=== PATIENT | female | born 1950 | race Caucasian/White ===

== ENCOUNTER 2023-07-31 15:04 | Outpatient (CLI) | payer MEDICARE, SELFPAY ==
--- NOTE | 2023-07-31 15:15 | XR_ITS ---
FINAL REPORT CLINICAL HISTORY: bilateral foot pain, pain in all toes FINDINGS: Right foot Three views were obtained. There is no acute fracture or dislocation. There are moderate degenerative changes. Calcaneal spurs are noted. There is varus angulation of the metatarsals. No soft tissue abnormality is identified. IMPRESSION: Degenerative changes. Reviewed, Interpreted and Dictated by Jeff Clemens III, MD Transcribed by Traci Franco Authenticated and [facility]
--- NOTE | 2023-07-31 15:15 | XR_ITS ---
FINAL REPORT CLINICAL HISTORY: bilateral foot pain, pain in all toes FINDINGS: Left foot Three views were obtained. There is no acute fracture or dislocation. There is severe hallux valgus deformity. Moderate and severe degenerative changes are present. There is medial subluxation of the 3rd and 4th digits at the metatarsophalangeal joints. Note is made of calcaneal spurs. There is calcification in the region of the plantar aponeurosis. IMPRESSION: Degenerative and chronic appearing findings as above. Reviewed, Interpreted and Dictated by Jeff Clemens III, MD Transcribed by Traci Franco Authenticated and [facility]
== END 2023-07-31 23:59 | disposition home or self-care (01) ==
LOC: RAD 15:06
PROVIDERS: PCP Family Medicine; Visit Provider Podiatrist
DX: M19.071 Primary osteoarthritis, right ankle and foot; M19.072 Primary osteoarthritis, left ankle and foot; M20.41 Other hammer toe(s) (acquired), right foot; M20.42 Other hammer toe(s) (acquired), left foot; M79.672 Pain in left foot; M79.671 Pain in right foot
CPT/HCPCS: 73630

== ENCOUNTER 2024-01-16 16:21 | Outpatient (CLI) | payer MEDICARE, SELFPAY ==
--- NOTE | 2024-01-16 16:26 | XR_ITS ---
PROCEDURE INFORMATION: Exam: XR Left Ankle Exam date and time: 01/16/2024 4:27 PM Age: 73 years old Clinical indication: Pain; Ankle; Left; Additional info: Ankle pain TECHNIQUE: Imaging protocol: Radiologic exam of the left ankle. Views: 3 or more views. COMPARISON: CR XR FOOT WT BEARING LT 3V 01/16/2024 4:27 PM FINDINGS: Bones/joints: Old avulsion fracture off the medial malleolus. Degenerative changes in the medial and lateral malleolus. There is no evidence of acute fracture.There is no evidence of malalignment or dislocation. Bi malleolar soft tissue swelling Soft tissues: See Bones/joints finding. IMPRESSION: There is no evidence of acute fracture.There is no evidence of malalignment or dislocation.
--- NOTE | 2024-01-16 16:26 | XR_ITS ---
PROCEDURE INFORMATION: Exam: XR Left Foot Exam date and time: 01/16/2024 4:27 PM Age: 73 years old Clinical indication: Pain; Foot; Left; Additional info: Foot pain TECHNIQUE: Imaging protocol: Radiologic exam of the left foot. Views: 3 or more views. COMPARISON: CR XR FOOT WT BEARING LT 3V 07/31/2023 3:25 PM FINDINGS: Bones/joints: Significant hallux valgus deformity of the great toe. Degenerative changes in the tarsometatarsal joints especially the 1st tarsometatarsal joint. Degenerative changes in the 1st metatarsophalangeal joint and IP joint and tarsal bones . There is no evidence of acute fracture.There is no evidence of malalignment or dislocation. Soft tissues: Normal. IMPRESSION: 1. Significant hallux valgus deformity of the great toe. 2. Degenerative changes in the tarsometatarsal joints especially the 1st tarsometatarsal joint. Degenerative changes in the 1st metatarsophalangeal joint and IP joint and tarsal bones . 3. There is no evidence of acute fracture.There is no evidence of malalignment or dislocation.
== END 2024-01-16 23:59 | disposition home or self-care (01) ==
LOC: RAD 16:22
PROVIDERS: PCP Family Medicine; Visit Provider Podiatrist
DX: M79.672 Pain in left foot (principal); M25.572 Pain in left ankle and joints of left foot
CPT/HCPCS: 73610; 73630

== ENCOUNTER 2024-09-27 21:25 | Inpatient (IN) | payer MEDICARE, SELFPAY ==
--- NOTE | 2024-09-27 21:29 | XR_ITS ---
PROCEDURE INFORMATION: Exam: XR Chest Exam date and time: 09/27/2024 9:47 PM Age: 73 years old Clinical indication: Other: AMS TECHNIQUE: Imaging protocol: Radiologic exam of the chest. Views: 1 view. COMPARISON: CT ANGIO NECK 09/27/2024 9:43 PM FINDINGS: Lungs: Unremarkable. No consolidation. Pleural spaces: Unremarkable. No pleural effusion. No pneumothorax. Heart/Mediastinum: Unremarkable. No cardiomegaly. Bones/joints: Unremarkable. IMPRESSION: No acute findings.
--- NOTE | 2024-09-27 21:30 | CT_ITS ---
PROCEDURE INFORMATION: Exam: CTA Neck With Contrast Exam date and time: 09/27/2024 9:43 PM Age: 73 years old Clinical indication: Stroke-like symptoms; Other: Found on ground, AMS; Additional info: Possible stroke TECHNIQUE: Imaging protocol: Computed tomographic angiography of the neck with contrast. Exam focused on the cervical segments of the vasculature. 3D rendering (Not supervised by radiologist): MIP and/or 3D reconstructed images were created by the technologist. Radiation optimization: All CT scans at this facility use at least one of these dose optimization techniques: automated exposure control; mA and/or kV adjustment per patient size (includes targeted exams where dose is matched to clinical indication); or iterative reconstruction. Contrast material: ISOVUE 370; Contrast volume: 80 ml; Contrast route: INTRAVENOUS (IV); COMPARISON: CT ANGIO HEAD 09/27/2024 9:43 PM FINDINGS: Right common carotid artery: No stenosis. No dissection or occlusion. Right internal carotid artery: No stenosis of the extracranial segment. No dissection or occlusion. Right external carotid artery: No occlusion or stenosis of the origin. Left common carotid artery: No stenosis. No dissection or occlusion. Left internal carotid artery: No stenosis of the extracranial segment. No dissection or occlusion. Left external carotid artery: No occlusion or stenosis of the origin. Right vertebral artery: No stenosis. No dissection or occlusion. Left vertebral artery: No stenosis. No dissection or occlusion. Soft tissues: Normal. No significant soft tissue swelling. Bones/joints: No acute fracture. IMPRESSION: No stenosis or occlusion. REFERENCES: NASCET CRITERIA. The degree of stenosis in the cervical segment of the internal carotid artery is based on NASCET criteria. Normal is no stenosis. Mild is less than 50% stenosis. Moderate is 50-69% stenosis. Severe is 70% to 99% stenosis. Total occlusion is no detectable patent lumen.
--- NOTE | 2024-09-27 21:30 | CT_ITS ---
PROCEDURE INFORMATION: Exam: CT Head Without Contrast Exam date and time: 09/27/2024 9:43 PM Age: 73 years old Clinical indication: Stroke-like symptoms; Other: Found on ground, AMS; Additional info: Possible stroke TECHNIQUE: Imaging protocol: Computed tomography of the head without contrast. Radiation optimization: All CT scans at this facility use at least one of these dose optimization techniques: automated exposure control; mA and/or kV adjustment per patient size (includes targeted exams where dose is matched to clinical indication); or iterative reconstruction. Other technique: STROKE PROTOCOL was implemented. COMPARISON: CT ANGIO HEAD 09/27/2024 9:43 PM FINDINGS: Brain: Normal. No hemorrhage. Unremarkable white matter. No mass effect. Cerebral ventricles: No ventriculomegaly. Paranasal sinuses: Visualized sinuses are unremarkable. No fluid levels. Mastoid air cells: Visualized mastoid air cells are well aerated. Bones: Unremarkable. No acute fracture. Soft tissues: Unremarkable. IMPRESSION: No acute intracranial abnormality. ASSESSMENT: ASPECTS ([place] Stroke Program Early CT Score) is 10
--- NOTE | 2024-09-27 21:30 | CT_ITS ---
PROCEDURE INFORMATION: Exam: CTA Head With Contrast, Arteriography Exam date and time: 09/27/2024 9:43 PM Age: 73 years old Clinical indication: Stroke-like symptoms; Other: Found on ground, AMS; Additional info: Possible stroke TECHNIQUE: Imaging protocol: Computed tomographic angiography of the head with contrast. Exam focused on the arteries. 3D rendering (Not supervised by radiologist): MIP and/or 3D reconstructed images were created by the technologist. Radiation optimization: All CT scans at this facility use at least one of these dose optimization techniques: automated exposure control; mA and/or kV adjustment per patient size (includes targeted exams where dose is matched to clinical indication); or iterative reconstruction. Contrast material: ISOVUE 370; Contrast volume: 80 ml; Contrast route: INTRAVENOUS (IV); COMPARISON: CT HEAD/BRAIN WO CON 09/27/2024 9:43 PM FINDINGS: ANTERIOR CIRCULATION: Right internal carotid artery: Intracranial segment is patent with no significant stenosis. No aneurysm. Right middle cerebral artery: No occlusion or significant stenosis. No aneurysm. Right anterior cerebral artery: No occlusion or significant stenosis. No aneurysm. Left internal carotid artery: Intracranial segment is patent with no significant stenosis. No aneurysm. Left middle cerebral artery: No occlusion or significant stenosis. No aneurysm. Left anterior cerebral artery: No occlusion or significant stenosis. No aneurysm. POSTERIOR CIRCULATION: Right vertebral artery: No occlusion or significant stenosis. No aneurysm. Left vertebral artery: No occlusion or significant stenosis. No aneurysm. Basilar artery: No occlusion or significant stenosis. No aneurysm. Right posterior cerebral artery: No occlusion or significant stenosis. No aneurysm. Left posterior cerebral artery: No occlusion or significant stenosis. No aneurysm. Brain: No definite mass, mass effect, or midline shift. Cerebral ventricles: No ventriculomegaly. Bones/joints: Unremarkable. No acute fracture. Soft tissues: Unremarkable. IMPRESSION: No large vessel stenosis or occlusion.
--- NOTE | 2024-09-27 21:32 | HMH.EDGENADL ---
Discharge Plan Disposition Patient Disposition: Admitted Clinical Impressions Clinical Impression: Declining functional status Discharge ED Provider: Porfirio No General Adult HPI <Roselyn Keating APRN - Last Filed: 09/27/24 21:37> General Chief complaint: Altered Mental Status Stated complaint: found down Time Seen by Provider: 09/27/24 21:29 History of Present Illness HPI narrative: patient is a 73-year-old female PMHx obesity, dementia brought in to ED via EMS for being found down and altered. EMS reported that family advised patient has dementia at baseline but is very altered right now. Related Data Home Medications ?Medication ?Instructions ?Recorded ?Confirmed ascorbic acid (vitamin C) 500 mg 500 mg PO DAILY 05/25/22 09/28/24 tablet,extended release cholecalciferol (vitamin D3) 125 125 mcg PO DAILY 05/25/22 09/28/24 mcg (5,000 unit) capsule simvastatin 20 mg tablet 20 mg PO DAILY 05/25/22 09/28/24 donepezil 5 mg tablet 5 mg PO HS 07/31/23 09/28/24 escitalopram oxalate 20 mg tablet 20 mg PO HS 07/31/23 09/28/24 memantine 10 mg tablet 10 mg PO BID 07/31/23 09/28/24 pantoprazole 40 mg tablet,delayed 40 mg PO BID 10/17/23 09/28/24 release bupropion HCl 150 mg 24 hr tablet, 150 mg PO DAILY 09/28/24 09/28/24 extended release losartan 50 mg tablet (Cozaar) 50 mg PO HS 09/28/24 09/28/24 Allergies Allergy/AdvReac Type Severity Reaction Status Date / Time morphine (MORPHINE) Allergy Unknown HIVES/FEVER Verified 01/16/24 15:14 Penicillins (PENICILLINS) Allergy Unknown I-RASH Verified 01/16/24 15:14 Sulfa (Sulfonamide Allergy Unknown I-RASH Verified 01/16/24 15:14 Antibiotics) (SULFA (SULFONAMIDE ANTIBIOTICS)) [facility] <Roselyn Keating APRN - Last Filed: 09/27/24 21:37> [facility] Disclaimer: The information contained in this section may have been updated after the patient was seen, as this information can be updated by other users. Medical History (Updated 09/28/24 @ 01:06 by Dana Lowery RN) Dementia Osteoarthritis History of gastroesophageal reflux (GERD) History of cataract History of anemia Prolapsed bladder Surgical History (Updated 09/28/24 @ 01:06 by Dana Lowery RN) H/O: hysterectomy History of cholecystectomy History of left knee replacement History of right hip replacement Hx of tonsillectomy Family History Mother Cancer Father Cancer Social History (Updated 09/28/24 @ 01:06 by Dana Lowery RN) Smoking Status: Never smoker alcohol intake: never current occupational status: retired Travel in the last 8 weeks?: None Have you lived/traveled outside [place] in past 30 days?: No Contact w/someone who lives/traveled outside US past 30 days?: No Exposure to someone with infectious disease in past 14 days?: No Do you have a fever (greater than 100.4 F or 38 C)?: No Have you tested positive for COVID-19?: No Exposed to someone with COVID-19 in past 14 days?: No Do you have a sore throat?: No Do you have a cough?: No Do you have any weakness?: No Are you experiencing any nausea/vomitting?: No Do you have any diarrhea?: No Are you experiencing any unusual bleeding?: No Do you have any muscle aches/pain?: No Do you have any abdominal pain?: No Are you experiencing loss of taste or smell?: No Other Medical History Have you received the Pneumonia Vaccine: No <Roselyn Keating APRN - Last Filed: 09/27/24 21:37> ROS Obtained: Yes Systems reviewed as appropriate & no additional complaints except as documented Physical Exam <Roselyn Keating APRN - Last Filed: 09/27/24 21:37> General General appearance: alert Head Head exam: atraumatic Eye Eye exam: Present PERRL Neck Neck exam: Present full ROM Chest Chest inspection: Present normal inspection Respiratory Respiratory exam: Present normal lung sounds bilaterally Cardiovascular Cardiovascular exam: Present tachycardia Abdominal Exam Abdominal exam: Present soft; Absent tenderness Extremities Exam Extremities exam: Present other (Chronic deformity of feet) Neurological Exam Neurological exam: Present alert; Absent oriented X3 Skin Skin exam: Present warm and dry Medical Decision Making <Roselyn Keating APRN - Last Filed: 09/27/24 21:37> Medical Records Screening: Per USPSTF and CDC recommendations, given the prevalence of disease in our region, it is our hospital?s policy to screen for HIV and viral Hepatitis for all patients aged 18 and over and those with ongoing risk factors. Scottie Inquiry Pt receiving controlled substance: No Vital Signs: 09/27/24 21:37 09/27/24 22:31 09/27/24 23:01 Temperature 99.9 F H Temperature Source Oral Pulse Rate 93 H 89 Pulse Rate [Right Radial] 109 H Respiratory Rate 18 14 12 Blood Pressure 123/67 117/63 Blood Pressure [Right Arm] 111/84 Blood Pressure Mean [Right Arm] 93 Blood Pressure Source Blood Pressure Position Blood Pressure Position [Right Arm] Supine 02 Sat by Pulse Oximetry 98 96 97 Oxygen Delivery Method Room Air 09/27/24 23:31 09/28/24 00:01 09/28/24 00:15 Temperature Temperature Source Pulse Rate 88 91 H Pulse Rate [Right Radial] Respiratory Rate 13 13 Blood Pressure 109/59 L 121/67 Blood Pressure [Right Arm] Blood Pressure Mean [Right Arm] Blood Pressure Source Blood Pressure Position Blood Pressure Position [Right Arm] 02 Sat by Pulse Oximetry 96 96 Oxygen Delivery Method Room Air 09/28/24 00:31 09/28/24 00:38 Temperature 99.9 F H Temperature Source Oral Pulse Rate 76 85 Pulse Rate [Right Radial] Respiratory Rate 13 14 Blood Pressure 104/58 L 104/58 L Blood Pressure [Right Arm] Blood Pressure Mean [Right Arm] Blood Pressure Source Automatic Cuff Blood Pressure Position Sitting Blood Pressure Position [Right Arm] 02 Sat by Pulse Oximetry 95 Oxygen Delivery Method Room Air Lab Data Lab Results 09/27/24 21:20: VBG pH 7.38, VBG pCO2 37.0, VBG pO2 42.3 H, VBG HCO3 21.2 L, VBG Total CO2 22.4 L, VBG O2 Saturation 75.8 H, VBG Base Excess -3.9 L, VBG Lactic Acid 1.6, Sodium 141, Potassium 4.1, Chloride 104, Carbon Dioxide 24, Anion Gap 17.1 H, BUN 27 H, Creatinine 1.00, Estimated Creat Clear 43, Estimated GFR 54 L, Est GFR ( Amer) 66, Glucose 127 H, Calcium 9.4, Total Bilirubin 1.1, AST 48 H, ALT 21, Alkaline Phosphatase 76, Troponin I 0.02, NT-Pro-B Natriuret Pep 660 H, Total Protein 7.2, Albumin 4.3, Globulin 2.9, Albumin/Globulin Ratio 1.5, Triglycerides 62, Cholesterol 144, LDL Cholesterol Direct 63.64 L, VLDL Cholesterol 12, HDL Cholesterol 43, Cholesterol/HDL Ratio 3.3, Salicylates < 1.0 L, Acetaminophen < 10 L, Plasma/Serum Alcohol < 10 09/27/24 22:25: WBC 8.3, RBC 3.67 L, Hgb 11.4 L, Hct 33.8 L, MCV 92.1, MCH 31.1, MCHC 33.7, RDW 13.0, Plt Count 202, MPV 9.8, Neut % (Auto) 85.2 H, Lymph % (Auto) 7.5 L, Robeson % (Auto) 6.6, Eos % (Auto) 0.1, Baso % (Auto) 0.1, Neut # (Auto) 7.1, Lymph # (Auto) 0.6 L, Robeson # (Auto) 0.6, Eos # (Auto) 0.0, Baso # (Auto) 0.0, PT 11.9, INR 1.08, APTT 25.0 09/27/24 22:25 09/27/24 21:20 Orders (Tests/Meds): ED MEDICATIONS Generic Name Dose Route Start Last Admin Trade Name Freq PRN Reason Stop Dose Admin Acetaminophen 650 mg 09/27/24 23:39 Acetaminophen 325mg Tab PO 10/27/24 23:38 Q4HP PRN Fever or Mild Pain (1-3) Heparin Sodium (Porcine) 5,000 unit 09/28/24 09:00 Heparin Sodium 5,000 Unit/Ml Vial SQ 10/28/24 08:59 BID MILLA Ondansetron HCl 4 mg 09/27/24 23:39 Ondansetron 4mg/2ml Vial IV 10/27/24 23:38 Q8HP PRN Nausea Discontinued Medications Generic Name Dose Route Start Last Admin Trade Name Freq PRN Reason Stop Dose Admin Iopamidol 80 ml 09/27/24 21:43 09/27/24 21:44 Iopamidol-370 (76%);100ml Bottle IV 09/27/24 21:44 80 ml ONCE ONE Administration Sodium Chloride 50 ml 09/27/24 21:43 09/27/24 21:44 0.9 % Sodium Chloride 50 Ml Vial IV 09/27/24 21:44 50 ml ONCE ONE Administration Sodium Chloride 10 ml 09/27/24 21:43 09/27/24 21:44 Sodium Chloride 0.9% 10ml Syr (Rad Only) IV 09/27/24 21:44 10 ml ONCE ONE Administration ORDERS Category Date Time Status CT angio head Stat Cat Scan 09/27/24 21:[address] angio neck Stat Cat Scan 09/27/24 21:[address] head/brain wo con Stat Cat Scan 09/27/24 21:30 Completed CXR --portable [XR chest portable] Stat Exams 09/27/24 21:29 Completed Acetaminophen Stat Lab 09/27/24 21:20 Completed Activated Partial Thrombo Time Stat Lab 09/27/24 22:25 Completed BNP [NT Pro Brain Natriuretic Pep.] Stat Lab 09/27/24 21:20 Completed Basic Metabolic Panel AMLAB Lab 09/28/24 06:00 Ordered CBC w/Auto Diff [Complete Blood Count Auto Diff] Stat Lab 09/27/24 22:25 Completed CMP [Comprehensive Metabolic Panel] Stat Lab 09/27/24 21:20 Completed Complete Blood Count Auto Diff AMLAB Lab 09/28/24 06:00 Ordered Ethyl Alcohol Stat Lab 09/27/24 21:20 Completed Lipid Panel Stat Lab 09/27/24 21:20 Completed Prothrombin Time INR Stat Lab 09/27/24 22:25 Completed Salicylate Stat Lab 09/27/24 21:20 Completed Trop I [Troponin I] Stat Lab 09/27/24 21:20 Completed Troponin I Q3H Lab 09/28/24 01:13 Completed Troponin I Q3H Lab 09/28/24 03:30 Ordered UDS [Drug Screen,Urine] Stat Lab 09/27/24 21:29 Ordered Urinalysis and Microscopic Stat Lab 09/27/24 21:29 Ordered Blood Culture Stat Micro 09/27/24 21:31 Received VBG [Venous Blood Gas] Stat RT 09/27/24 21:20 Completed Medical Decision Narrative: In summary, patient is a 73-year-old female PMHx obesity, dementia brought in to ED via EMS for being found down and altered. EMS reported that family advised patient has dementia at baseline but is very altered right now. No additional information at this time. Upon my initial evaluation of patient, she is rambling, sentences not making sense. She followed 1 command during my exam. Unable to answer any questions correctly. Upon physical exam, patient has chronic deformities of toes, abdomen is soft and nontender, chest wall nontender. No obvious head injury. Differential diagnosis infectious process, ICH, mass, other stroke, intoxicated, among others. Will start with sepsis workup as patient is tachycardic, altered. Will also emergently scan head and neck. After my initial evaluation, care was transferred to Dr. No <Porfirio No MD - Last Filed: 09/28/24 03:07> Vital Signs: 09/27/24 21:37 09/27/24 22:31 09/27/24 23:01 Temperature 99.9 F H Temperature Source Oral Pulse Rate 93 H 89 Pulse Rate [Right Radial] 109 H Respiratory Rate 18 14 12 Blood Pressure 123/67 117/63 Blood Pressure [Right Arm] 111/84 Blood Pressure Mean [Right Arm] 93 Blood Pressure Source Blood Pressure Position Blood Pressure Position [Right Arm] Supine 02 Sat by Pulse Oximetry 98 96 97 Oxygen Delivery Method Room Air 09/27/24 23:31 09/28/24 00:01 09/28/24 00:15 Temperature Temperature Source Pulse Rate 88 91 H Pulse Rate [Right Radial] Respiratory Rate 13 13 Blood Pressure 109/59 L 121/67 Blood Pressure [Right Arm] Blood Pressure Mean [Right Arm] Blood Pressure Source Blood Pressure Position Blood Pressure Position [Right Arm] 02 Sat by Pulse Oximetry 96 96 Oxygen Delivery Method Room Air 09/28/24 00:31 09/28/24 00:38 Temperature 99.9 F H Temperature Source Oral Pulse Rate 76 85 Pulse Rate [Right Radial] Respiratory Rate 13 14 Blood Pressure 104/58 L 104/58 L Blood Pressure [Right Arm] Blood Pressure Mean [Right Arm] Blood Pressure Source Automatic Cuff Blood Pressure Position Sitting Blood Pressure Position [Right Arm] 02 Sat by Pulse Oximetry 95 Oxygen Delivery Method Room Air Lab Data Lab Results 09/27/24 21:20: VBG pH 7.38, VBG pCO2 37.0, VBG pO2 42.3 H, VBG HCO3 21.2 L, VBG Total CO2 22.4 L, VBG O2 Saturation 75.8 H, VBG Base Excess -3.9 L, VBG Lactic Acid 1.6, Sodium 141, Potassium 4.1, Chloride 104, Carbon Dioxide 24, Anion Gap 17.1 H, BUN 27 H, Creatinine 1.00, Estimated Creat Clear 43, Estimated GFR 54 L, Est GFR ( Amer) 66, Glucose 127 H, Calcium 9.4, Total Bilirubin 1.1, AST 48 H, ALT 21, Alkaline Phosphatase 76, Troponin I 0.02, NT-Pro-B Natriuret Pep 660 H, Total Protein 7.2, Albumin 4.3, Globulin 2.9, Albumin/Globulin Ratio 1.5, Triglycerides 62, Cholesterol 144, LDL Cholesterol Direct 63.64 L, VLDL Cholesterol 12, HDL Cholesterol 43, Cholesterol/HDL Ratio 3.3, Salicylates < 1.0 L, Acetaminophen < 10 L, Plasma/Serum Alcohol < 10 09/27/24 22:25: WBC 8.3, RBC 3.67 L, Hgb 11.4 L, Hct 33.8 L, MCV 92.1, MCH 31.1, MCHC 33.7, RDW 13.0, Plt Count 202, MPV 9.8, Neut % (Auto) 85.2 H, Lymph % (Auto) 7.5 L, Robeson % (Auto) 6.6, Eos % (Auto) 0.1, Baso % (Auto) 0.1, Neut # (Auto) 7.1, Lymph # (Auto) 0.6 L, Robeson # (Auto) 0.6, Eos # (Auto) 0.0, Baso # (Auto) 0.0, PT 11.9, INR 1.08, APTT 25.0 Orders (Tests/Meds): ED MEDICATIONS Generic Name Dose Route Start Last Admin Trade Name Freq PRN Reason Stop Dose Admin Acetaminophen 650 mg 09/27/24 23:39 Acetaminophen 325mg Tab PO 10/27/24 23:38 Q4HP PRN Fever or Mild Pain (1-3) Heparin Sodium (Porcine) 5,000 unit 09/28/24 09:00 Heparin Sodium 5,000 Unit/Ml Vial SQ 10/28/24 08:59 BID MILLA Ondansetron HCl 4 mg 09/27/24 23:39 Ondansetron 4mg/2ml Vial IV 10/27/24 23:38 Q8HP PRN Nausea Discontinued Medications Generic Name Dose Route Start Last Admin Trade Name Freq PRN Reason Stop Dose Admin Iopamidol 80 ml 09/27/24 21:43 09/27/24 21:44 Iopamidol-370 (76%);100ml Bottle IV 09/27/24 21:44 80 ml ONCE ONE Administration Sodium Chloride 50 ml 09/27/24 21:43 09/27/24 21:44 0.9 % Sodium Chloride 50 Ml Vial IV 09/27/24 21:44 50 ml ONCE ONE Administration Sodium Chloride 10 ml 09/27/24 21:43 09/27/24 21:44 Sodium Chloride 0.9% 10ml Syr (Rad Only) IV 09/27/24 21:44 10 ml ONCE ONE Administration ORDERS Category Date Time Status CT angio head Stat Cat Scan 09/27/24 21:[address] angio neck Stat Cat Scan 09/27/24 21:[address] head/brain wo con Stat Cat Scan 09/27/24 21:30 Completed CXR --portable [XR chest portable] Stat Exams 09/27/24 21:29 Completed Acetaminophen Stat Lab 09/27/24 21:20 Completed Activated Partial Thrombo Time Stat Lab 09/27/24 22:25 Completed BNP [NT Pro Brain Natriuretic Pep.] Stat Lab 09/27/24 21:20 Completed Basic Metabolic Panel AMLAB Lab 09/28/24 06:00 Ordered CBC w/Auto Diff [Complete Blood Count Auto Diff] Stat Lab 09/27/24 22:25 Completed CMP [Comprehensive Metabolic Panel] Stat Lab 09/27/24 21:20 Completed Complete Blood Count Auto Diff AMLAB Lab 09/28/24 06:00 Ordered Ethyl Alcohol Stat Lab 09/27/24 21:20 Completed Lipid Panel Stat Lab 09/27/24 21:20 Completed Prothrombin Time INR Stat Lab 09/27/24 22:25 Completed Salicylate Stat Lab 09/27/24 21:20 Completed Trop I [Troponin I] Stat Lab 09/27/24 21:20 Completed Troponin I Q3H Lab 09/28/24 01:13 Completed Troponin I Q3H Lab 09/28/24 03:30 Ordered UDS [Drug Screen,Urine] Stat Lab 09/27/24 21:29 Ordered Urinalysis and Microscopic Stat Lab 09/27/24 21:29 Ordered Blood Culture Stat Micro 09/27/24 21:31 Received VBG [Venous Blood Gas] Stat RT 07/04/25 21:20 Completed ECG Data Tracing #1: I reviewed this ECG and interpreted as documented below: Normal sinus rhythm. No ST elevation or depression. Medical Decision Narrative: In summary, patient is a 73-year-old female PMHx obesity, dementia brought in to ED via EMS for being found down and altered. EMS reported that family advised patient has dementia at baseline but is very altered right now. No additional information at this time. Upon my initial evaluation of patient, she is rambling, sentences not making sense. She followed 1 command during my exam. Unable to answer any questions correctly. Upon physical exam, patient has chronic deformities of toes, abdomen is soft and nontender, chest wall nontender. No obvious head injury. Differential diagnosis infectious process, ICH, mass, other stroke, intoxicated, among others. Will start with sepsis workup as patient is tachycardic, altered. Will also emergently scan head and neck. After my initial evaluation, care was transferred to Dr. No I was consulted by the YUDELKA, and we discussed the complexity of the problems being addressed. I approve the treatment and management plan for this patient's care in the emergency department, thus performing a substantive portion of the medical decision making. Porfirio No MD On my evaluation, patient remains confused. Daughter is at the bedside at this time. She provides additional history and states that the patient lives alone across the street from her and they tried to check on her as much as they can, However, she is not available all of the time. Her daughter states that she found her on the floor facedown today, which prompted her to bring her to the emergency department. She is worried about her overall functional decline and states that over the last 2 weeks, she has had a noticeable decline. She does state that she has a history of dementia at baseline but this seems noticeably worse. She is very concerned about her ability to care for herself, especially given that she is not able to help care for her at all times. CT and x-ray imaging were interpreted by me personally and showed no acute intracranial hemorrhage, mass or midline shift. No large vessel occlusion. No acute findings within the chest. Laboratory workup was grossly unremarkable except for mildly elevated proBNP of 660 and anion gap of 17.1. These were grossly nonactionable. No leukocytosis or significant anemia. Given patient's recent functional decline in the setting of living alone with advanced dementia and apparent falls, I had a discussion with the daughter about admitting the patient for possible placement and her daughter is in agreement with this plan, stating that she is very worried about her being at home by herself. I then discussed the patient's case with the hospital medicine service who agreed to admit her to their service . Critical Care <Roselyn Keating APRN - Last Filed: 09/27/24 21:37> Critical Care Time Critical Care Time: No
--- OUTSIDE RECORDS SUMMARY | 2024-09-27 21:34 | XMS_ITS | Data Portability ---
Author Organization [place] - [facility] & [place] [facility] ADMIN Address [address] [place] [id number] Care Team Providers Care Video Software Engineer Name Role Phone NANDO ROY Primary Care Provider Assessment No assessment recorded. Plan of Treatment Reminders Order Date Submit Date Provider Last Modified By Organization Details Last Modified Time Details Appointments OV EST 15 2024 02:00P Juliana Washburn NP Not available Not available Not available Lab CBC w/ auto diff 2023 024 [facility] (Lab Registration) , [address] [place] [address] [place], [address], 02/20/2024 10:15:27 CBC w/ auto diff 2023 024 [facility] (Lab Registration) , [address] [place] [address] [place], [address], 10/20/2023 13:08:41 Referral None recorded. Procedures upper endoscopy procedure (EGD) (PROC) 2023 024 [facility] (Central Scheduling), [address] [place] [address] [place], [address], 03/13/2024 09:39:51 Surgeries None recorded. Imaging None recorded. Medication Orders Gas Relief (simethic one) 180 mg capsule 2024 025 [facility], [address] [place] [address], [id number], 06/19/2024 14:51:57 pantopraz ole 40 mg tablet,de layed release 2024 025 [facility], [address] [facility], [place], [place], [id number], 06/19/2024 14:51:56 Patient TargetsNo targets recorded. Patient InstructionsNo instructions recorded. Reason for Referral None Reported. Results Created Date Observation Date Name Description Value Unit Range Abnormal Flag Note LastModifiedBy Organization Detail LastModifiedTime 10/06/19 24 10/06/2023 CBC W/ AUTO DIFF WBC 5.90 K/uL 4.5-11 .5 Not Available [facility] (Pre-Op Clinic) [address] [place] [address] [place], [address], 10/06/2023 13:02:09 10/06/19 24 10/06/2023 CBC W/ AUTO DIFF RBC 2.89 M/uL 4.0-5. 4 low Not Available [facility] (Pre-Op Clinic) [address] [place] [address] [place], [address], 10/06/2023 13:02:09 10/06/19 24 10/06/2023 CBC W/ AUTO DIFF HGB 8.7 g/dL 12.0-1 5.0 low Not Available [facility] (Pre-Op Clinic) [address] [place] [address] [place], [address], 10/06/2023 13:02:09 10/06/19 24 10/06/2023 CBC W/ AUTO DIFF HCT 27.5 % 35-49 low Not Available [facility] (Pre-Op Clinic) [address] [place] [address] [place], [address], 10/06/2023 13:02:10/06/19 24 10/06/2023 CBC W/ AUTO DIFF MCV 95.2 fL 80.0-1 00.0 Not Available [facility] (Pre-Op Clinic) [address] [place] [address] [place], [address], 10/06/2023 13:02:10/06/19 24 10/06/2023 CBC W/ AUTO DIFF MCH 30.1 pg 26.0-3 2.0 Not Available [facility] (Pre-Op Clinic) [address] [place] [address] [place], [address], 10/06/2023 13:02:09 10/06/19 24 10/06/2023 CBC W/ AUTO DIFF MCHC 31.6 g/dL 32.0-3 6.0 low Not Available [facility] (Pre-Op Clinic) [address] [place] [address] [place], [address], 10/06/2023 13:02:10/06/19 24 10/06/2023 CBC W/ AUTO DIFF RDW 13.5 % 11.5-1 4.5 Not Available [facility] (Pre-Op Clinic) [address] [place] [address] [place], [address], 10/06/2023 13:02:10/06/19 24 10/06/2023 CBC W/ AUTO DIFF platelet count 288 K/uL 142-42 4 Not Available [facility] (Pre-Op Clinic) [address] [place] [address] [place], [address], 10/06/2023 13:02:10/06/19 24 10/06/2023 CBC W/ AUTO DIFF MPV 8.5 fL 6.8-10 .2 Not Available [facility] (Pre-Op Clinic) [address] [place] [address] [place], [address], 10/06/2023 13:02:10/06/19 24 10/06/2023 CBC W/ AUTO DIFF neutrophil % 68.4 % 50-70 Not Available [facility] (Pre-Op Clinic) [address] [place] [address] [place], [address], 10/06/2023 13:02:10/06/19 24 10/06/2023 CBC W/ AUTO DIFF lymphocyte % 21.9 % 18.0-4 2.0 Not Available [facility] (Pre-Op Clinic) [address] [place] [address] [place], [address], 10/06/2023 13:02:09 10/06/19 24 10/06/2023 CBC W/ AUTO DIFF monocyte % 6.3 % 2.0-11 .0 Not Available [facility] (Pre-Op Clinic) [address] [facility] [place], [address], 10/06/2023 13:02:09 10/06/19 24 10/06/2023 CBC W/ AUTO DIFF eosinophil % 2.5 % 1.0-3. 0 Not Available [facility] (Pre-Op Clinic) [address] [place] [address] [place], [address], 10/06/2023 13:02:09 10/06/19 24 10/06/2023 CBC W/ AUTO DIFF basophil % 0.7 % 0.0-2. 0 Not Available [facility] (Pre-Op Clinic) [address] [place] [address] [place], [address], 10/06/2023 13:02:09 10/06/19 24 10/06/2023 CBC W/ AUTO DIFF immature granulocytes % 0.2 % 0.0-0. 8 Not Available [facility] (Pre-Op Clinic) [address] [place] [address] [place], [address], 10/06/2023 13:02:09 10/06/19 24 10/06/2023 CBC W/ AUTO DIFF nucleated red blood cells % 0.0 % Not Available [facility] (Pre-Op Clinic) [address] [place] [address] [place], [address], 10/06/2023 13:02:09 10/06/19 24 10/06/2023 CBC W/ AUTO DIFF neutrophil # 4.04 K/uL Not Available [facility] (Pre-Op Clinic) [address] [place] [address] [place], [address], 10/06/2023 13:02:09 10/06/19 24 10/06/2023 CBC W/ AUTO DIFF lymphocyte # 1.29 K/uL Not Available [facility] (Pre-Op Clinic) [address] [facility] [place], [address], 10/06/2023 13:02:09 10/06/19 24 10/06/2023 CBC W/ AUTO DIFF monocyte # 0.37 K/uL Not Available [facility] (Pre-Op Clinic) [address] [place] [address] [place], [address], 10/06/2023 13:02:09 10/06/19 24 10/06/2023 CBC W/ AUTO DIFF eosinophil # 0.15 K/uL Not Available [facility] (Pre-Op Clinic) [address] [place] [address] [place], [address], 10/06/2023 13:02:09 10/06/19 24 10/06/2023 CBC W/ AUTO DIFF basophil # 0.04 K/uL Not Available [facility] (Pre-Op Clinic) [address] [place] [address] [place], [address], 10/06/2023 13:02:09 10/06/19 24 10/06/2023 CBC W/ AUTO DIFF immature gramulocytes # 0.01 K/uL Not Available [facility] (Pre-Op Clinic) [address] [place] [address] [place], [address], 10/06/2023 13:02:09 10/06/19 24 10/06/2023 CBC W/ AUTO DIFF nucleated red blood cells # 0.00 k/uL Not Available [facility] (Pre-Op Clinic) [address] [place] [address] [place], [address], 10/06/2023 13:02:09 10/06/19 24 10/06/2023 CBC W/ AUTO DIFF manual differential NO Not Available [facility] (Pre-Op Clinic) [address] [place] [address] [place], [address], 10/06/2023 13:02:09 10/06/19 24 10/06/2023 CBC W/ AUTO DIFF note Unles s other rios noted testi ng perfo rmed at: [facility] [address] [place] [address] Curt munguia MD Not Available [facility] (Pre-Op Clinic) [address] [place] [address] [place], [address], 10/06/2023 13:02:09 10/13/19 24 10/13/2023 CBC W/ AUTO DIFF WBC 5.62 K/uL 4.5-11 .5 Not Available [facility] (Pre-Op Clinic) [address] [place] [address] [place], [address], 10/13/2023 13:01:43 10/13/19 24 10/13/2023 CBC W/ AUTO DIFF RBC 3.59 M/uL 4.0-5. 4 low Not Available [facility] (Pre-Op Clinic) [address] [place] [address] [place], [address], 10/13/2023 13:01:43 10/13/19 24 10/13/2023 CBC W/ AUTO DIFF HGB 10.5 g/dL 12.0-1 5.0 low Not Available [facility] (Pre-Op Clinic) [address] [place] [address] [place], [address], 10/13/2023 13:01:43 10/13/19 24 10/13/2023 CBC W/ AUTO DIFF HCT 33.5 % 35-49 low Not Available [facility] (Pre-Op Clinic) [address] [place] [address] [place], [address], 10/13/2023 13:01:43 10/13/19 24 10/13/2023 CBC W/ AUTO DIFF MCV 93.3 fL 80.0-1 00.0 Not Available [facility] (Pre-Op Clinic) [address] [place] [address] [place], [address], 10/13/2023 13:01:43 10/13/19 24 10/13/2023 CBC W/ AUTO DIFF MCH 29.2 pg 26.0-3 2.0 Not Available [facility] (Pre-Op Clinic) [address] [place] [address] [place], [address], 10/13/2023 13:01:43 10/13/19 24 10/13/2023 CBC W/ AUTO DIFF MCHC 31.3 g/dL 32.0-3 6.0 low Not Available [facility] (Pre-Op Clinic) [address] [place] [address] [place], [address], 10/13/2023 13:01:43 10/13/19 24 10/13/2023 CBC W/ AUTO DIFF RDW 13.9 % 11.5-1 4.5 Not Available [facility] (Pre-Op Clinic) [address] [place] [address] [place], [address], 10/13/2023 13:01:43 10/13/19 24 10/13/2023 CBC W/ AUTO DIFF platelet count 252 K/uL 142-42 4 Not Available [facility] (Pre-Op Clinic) [address] [place] [address] [place], [address], 10/13/2023 13:01:43 10/13/19 24 10/13/2023 CBC W/ AUTO DIFF MPV 9.6 fL 6.8-10 .2 Not Available [facility] (Pre-Op Clinic) [address] [place] [address] [place], [address], 10/13/2023 13:01:43 10/13/19 24 10/13/2023 CBC W/ AUTO DIFF neutrophil % 67.5 % 50-70 Not Available [facility] (Pre-Op Clinic) [address] [place] [address] [place], [address], 10/13/2023 13:01:43 10/13/19 24 10/13/2023 CBC W/ AUTO DIFF lymphocyte % 21.0 % 18.0-4 2.0 Not Available [facility] (Pre-Op Clinic) [address] [place] [address] [place], [address], 10/13/2023 13:01:43 10/13/19 24 10/13/2023 CBC W/ AUTO DIFF monocyte % 6.6 % 2.0-11 .0 Not Available [facility] (Pre-Op Clinic) [address] [facility] [place], [address], 10/13/2023 13:01:43 10/13/19 24 10/13/2023 CBC W/ AUTO DIFF eosinophil % 3.6 % 1.0-3. 0 high Not Available [facility] (Pre-Op Clinic) [address] [facility] [place], [address], 10/13/2023 13:01:43 10/13/19 24 10/13/2023 CBC W/ AUTO DIFF basophil % 0.9 % 0.0-2. 0 Not Available [facility] (Pre-Op Clinic) [address] [place] [address] [place], [address], 10/13/2023 13:01:43 10/13/19 24 10/13/2023 CBC W/ AUTO DIFF immature granulocytes % 0.4 % 0.0-0. 8 Not Available [facility] (Pre-Op Clinic) [address] [place] [address] [place], [address], 10/13/2023 13:01:43 10/13/19 24 10/13/2023 CBC W/ AUTO DIFF nucleated red blood cells % 0.0 % Not Available [facility] (Pre-Op Clinic) [address] [place] [address] [place], [address], 10/13/2023 13:01:43 10/13/19 24 10/13/2023 CBC W/ AUTO DIFF neutrophil # 3.80 K/uL Not Available [facility] (Pre-Op Clinic) [address] [place] [address] [place], [address], 10/13/2023 13:01:43 10/13/19 24 10/13/2023 CBC W/ AUTO DIFF lymphocyte # 1.18 K/uL Not Available [facility] (Pre-Op Clinic) [address] [facility] [place], [address], 10/13/2023 13:01:43 10/13/19 24 10/13/2023 CBC W/ AUTO DIFF monocyte # 0.37 K/uL Not Available [facility] (Pre-Op Clinic) [address] [place] [address] [place], [address], 10/13/2023 13:01:43 10/13/19 24 10/13/2023 CBC W/ AUTO DIFF eosinophil # 0.20 K/uL Not Available [facility] (Pre-Op Clinic) [address] [place] [address] [place], [address], 10/13/2023 13:01:43 10/13/19 24 10/13/2023 CBC W/ AUTO DIFF basophil # 0.05 K/uL Not Available [facility] (Pre-Op Clinic) [address] [place] [address] [place], [address], 10/13/2023 13:01:43 10/13/19 24 10/13/2023 CBC W/ AUTO DIFF immature gramulocytes # 0.02 K/uL Not Available [facility] (Pre-Op Clinic) [address] [place] [address] [place], [address], 10/13/2023 13:01:43 10/13/19 24 10/13/2023 CBC W/ AUTO DIFF nucleated red blood cells # 0.00 k/uL Not Available [facility] (Pre-Op Clinic) [address] [place] [address] [place], [address], 10/13/2023 13:01:43 10/13/19 24 10/13/2023 CBC W/ AUTO DIFF manual differential NO Not Available [facility] (Pre-Op Clinic) [address] [place] [address] [place], [address], 10/13/2023 13:01:43 10/13/19 24 10/13/2023 CBC W/ AUTO DIFF note Unles s other rios noted testi ng perfo rmed at: [facility] [address] [facility] [place] [address] Curt munguia MD Not Available [facility] (Pre-Op Clinic) [address] [place] [address] [place], [address], 10/13/2023 13:01:43 02/13/20 24 02/13/2024 CBC W/ AUTO DIFF WBC 4.85 K/uL 4.5-11 .5 Not Available [facility] (Pre-Op Clinic) [address] [place] [address] [place], [address], 02/13/2024 17:03:21 02/13/20 24 02/13/2024 CBC W/ AUTO DIFF RBC 3.88 M/uL 4.0-5. 4 low Not Available [facility] (Pre-Op Clinic) [address] [place] [address] [place], [address], 02/13/2024 17:03:21 02/13/20 24 02/13/2024 CBC W/ AUTO DIFF HGB 11.6 g/dL 12.0-1 5.0 low Not Available [facility] (Pre-Op Clinic) [address] [place] [address] [place], [address], 02/13/2024 17:03:21 02/13/20 24 02/13/2024 CBC W/ AUTO DIFF HCT 36.0 % 35-49 Not Available [facility] (Pre-Op Clinic) [address] [place] [address] [place], [address], 02/13/2024 17:03:21 02/13/20 24 02/13/2024 CBC W/ AUTO DIFF MCV 92.8 fL 80.0-1 00.0 Not Available [facility] (Pre-Op Clinic) [address] [place] [address] [place], [address], 02/13/2024 17:03:21 02/13/20 24 02/13/2024 CBC W/ AUTO DIFF MCH 29.9 pg 26.0-3 2.0 Not Available [facility] (Pre-Op Clinic) [address] [place] [address] [place], [address], 02/13/2024 17:03:21 02/13/20 24 02/13/2024 CBC W/ AUTO DIFF MCHC 32.2 g/dL 32.0-3 6.0 Not Available [facility] (Pre-Op Clinic) [address] [place] [address] [place], [address], 02/13/2024 17:03:21 02/13/20 24 02/13/2024 CBC W/ AUTO DIFF RDW 13.7 % 11.5-1 4.5 Not Available [facility] (Pre-Op Clinic) [address] [place] [address] [place], [address], 02/13/2024 17:03:21 02/13/20 24 02/13/2024 CBC W/ AUTO DIFF platelet count 209 K/uL 142-42 4 Not Available [facility] (Pre-Op Clinic) [address] [place] [address] [place], [address], 02/13/2024 17:03:21 02/13/20 24 02/13/2024 CBC W/ AUTO DIFF MPV 10.4 fL 6.8-10 .2 high Not Available [facility] (Pre-Op Clinic) [address] [place] [address] [place], [address], 02/13/2024 17:03:21 02/13/20 24 02/13/2024 CBC W/ AUTO DIFF neutrophil % 60.3 % 50-70 Not Available [facility] (Pre-Op Clinic) [address] [place] [address] [place], [address], 02/13/2024 17:03:21 02/13/20 24 02/13/2024 CBC W/ AUTO DIFF lymphocyte % 27.4 % 18.0-4 2.0 Not Available [facility] (Pre-Op Clinic) [address] [place] [address] [place], [address], 02/13/2024 17:03:21 02/13/20 24 02/13/2024 CBC W/ AUTO DIFF monocyte % 8.0 % 2.0-11 .0 Not Available [facility] (Pre-Op Clinic) [address] [facility] [place], [address], 02/13/2024 17:03:21 02/13/20 24 02/13/2024 CBC W/ AUTO DIFF eosinophil % 3.5 % 1.0-3. 0 high Not Available [facility] (Pre-Op Clinic) [address] [facility] [place], [address], 02/13/2024 17:03:21 02/13/20 24 02/13/2024 CBC W/ AUTO DIFF basophil % 0.6 % 0.0-2. 0 Not Available [facility] (Pre-Op Clinic) [address] [place] [address] [place], [address], 02/13/2024 17:03:21 02/13/20 24 02/13/2024 CBC W/ AUTO DIFF immature granulocytes % 0.2 % 0.0-0. 8 Not Available [facility] (Pre-Op Clinic) [address] [place] [address] [place], [address], 02/13/2024 17:03:21 02/13/20 24 02/13/2024 CBC W/ AUTO DIFF nucleated red blood cells % 0.0 % Not Available [facility] (Pre-Op Clinic) [address] [place] [address] [place], [address], 02/13/2024 17:03:21 02/13/20 24 02/13/2024 CBC W/ AUTO DIFF neutrophil # 2.92 K/uL Not Available [facility] (Pre-Op Clinic) [address] [place] [address] [place], [address], 02/13/2024 17:03:21 02/13/20 24 02/13/2024 CBC W/ AUTO DIFF lymphocyte # 1.33 K/uL Not Available [facility] (Pre-Op Clinic) [address] [place] [address] [place], [address], 02/13/2024 17:03:21 02/13/20 24 02/13/2024 CBC W/ AUTO DIFF monocyte # 0.39 K/uL Not Available [facility] (Pre-Op Clinic) [address] [facility] [place], [address], 02/13/2024 17:03:21 02/13/20 24 02/13/2024 CBC W/ AUTO DIFF eosinophil # 0.17 K/uL Not Available [facility] (Pre-Op Clinic) [address] [place] [address] [place], [address], 02/13/2024 17:03:21 02/13/20 24 02/13/2024 CBC W/ AUTO DIFF basophil # 0.03 K/uL Not Available [facility] (Pre-Op Clinic) [address] [place] [address] [place], [address], 02/13/2024 17:03:21 02/13/20 24 02/13/2024 CBC W/ AUTO DIFF immature gramulocytes # 0.01 K/uL Not Available [facility] (Pre-Op Clinic) [address] [place] [address] [place], [address], 02/13/2024 17:03:21 02/13/20 24 02/13/2024 CBC W/ AUTO DIFF nucleated red blood cells # 0.00 k/uL Not Available [facility] (Pre-Op Clinic) [address] [place] [address] [place], [address], 02/13/2024 17:03:21 02/13/20 24 02/13/2024 CBC W/ AUTO DIFF manual differential NO Not Available [facility] (Pre-Op Clinic) [address] [place] [address] [place], [address], 02/13/2024 17:03:21 02/13/20 24 02/13/2024 CBC W/ AUTO DIFF note Unles s other rios noted testi ng perfo rmed at: [facility] [address] [place] [address] Curt munguia MD Not Available [facility] (Pre-Op Clinic) [address] [place] [address] [place], [address], 02/13/2024 17:03:21 10/10/19 24 10/04/2023 CT, abdom en + pelvi s, w/ contr ast No observ ation record ed. [email or web address] [facility] (Radiology) [address] [place] [address] [place], [address], 10/11/2023 09:53:50 02/01/2002/01/2024 US, echoc ardio gram, trans thora cic, compl ete, w/ color flow [facility] [address] [facility] [place] [address] Phone: Fax: Name: HERMAN GREEN Exam Date: 2023 : 951 Age 73 years Gender : F Access ion: [id number] Physic christel: NANDO ROY Facillarissa ty: [place] Facili ty HSV: Outpat ient Exam: ECHOCA RDIOGR AM Conclu sions: 1. Normal LV size and functi on. 2. Estima avelina left ventri cular ejecti on fracti on is 55-60% . 3. Mild aortic valve regurg itatio n. Findin gs: Left Ventri kristal:No rmal LV size and functi on. Normal left ventri cular systol ic functi on. Normal global wall motion . No region al wall motion abnorm alitie s. Right Ventri kristal:No rmal right ventri cular size and functi on. Left Atrium :Hina l left atrial size by volume criter ia. Right Atrium :Hina l right atrial size. Mitral Valve: Normal mitral valve struct ure and functi on. No mitral valve prolap se is presen t. No mitral stenos is. No mitral valve regurg itatio n. Trace mitral valve regurg itatio n. Tricus pid Valve: There is physio logic tricus pid valve regurg itatio n. Normal tricus pid valve struct ure and functi on. Aortic Valve: Mild aortic valve regurg itatio n. Normal aortic valve struct ure and functi on. Pulmon ic Valve: The pulmon ic valve is poorly seen. Perica rdium: Normal perica rdium. No perica rdial effusi on. Electr onical ly signed ZULY ONEILL MD 8:36 AM Study Data 2D Measur ements LVIDd: 4.62 (4.2-5 .9) cm LVIDs: 2.7 (2.1-4 .0) cm IVSDd: 1.01 (0.6-1 .0) cm LVPWd: 1.31 (0.6-1 .0) cm EF:72. 67 (>=55) % FS:41. 69 (25-43 ) % SV:71. 58 (70-10 0) ml EDV:98 .49 (67-15 5) ml ESV:26 .92 (22-58 ) ml LA Volume :36.86 (18-58 ) ml LA Volume Index: 14.08 (16-28 ) ml/m2 LVOT Diam:2 .08 (1.8-2 .4) cm M-MODE Measur ements Mitral Valve Peak E:1.02 (0.6-1 .3) m/s Peak A:1.13 (<=.7) m/s E/A Ratio: 0.9 (.75-1 .5) PHT:57 .01 ms MVA by PHT:3. 86 (4-6) cm2 DS:517 .36 cm/s2 DT:196 .58 (<=200 ) ms Tricus pid Valve TR Peak Brandon:1. 48 m/s TR Peak Grad:8 .81 mmHg RAP:10 (5-10) mmHg RVSP:1 8.81 (<=30) mmHg Aortic Valve Peak:1 .85 (<=2.5 ) m/s Legall y authen ticate d by SARAH Mahan MD 2023-03 09:06: 19 Peak Grad:1 3.66 (<=16) mmHg Mean:1 .2 m/s Mean Grad:6 .7 (<=5) mmHg AV VTI:43 .94 cm KAIT(ve l):2.0 6 (3-5) cm2 LVOT PV:1.1 3 (0.7-1 .1) m/s LVOT P.0 7 mmHg Pulmon ic Valve Report for HEMRAN Perez PAUL JIMENEZ [id number] on Dictat ed By: ZULY INFANTE Transc ribed By: AL ATKINS Transc ribed On: 9:05 AM Electr onical ly signed by: ZULY INFANTE Thank you for referr HERMAN Farris to [facility] al. Legall y authen ticate d by SARAH Mahan MD 2023-03 09:06: 19 CC'ed Logic: Orderi ng Provid er: SARAH Mahan Attend ing Provid er: KIRILL COLLIER Referr ing Provid er: KIRILL COLLIER Admitt ing Provid er: KIRILL COLLIER [facility] ([address] , [place], [address], 02/02/2024 15:04:05 Result Notes None recorded. Problems Name Problem SNOMED Code Status Onset Date Resolution Date Notes Provider Name and Address Organization Details Recorded Time Hypertensive disorder 25408299 Active Tomeka Stacey null, [place] - [facility] - [place] & [place] 14:26:49 Gastric ulcer 949124139 Active Tomeka Stacey null, [place] - [facility] [place] & [place] 14:26:49 Melena 3198319 Active 2023 Krystyna Washburn NP [address] [place] [address] Drive, [address], [place], [address] [facility] [place] [facility] & [place] 4 14:43:59 Gastro-esophag eal reflux disease with esophagitis 619091402 Active 2023 Krystyna Washburn NP [address], [address], [place], [address], [place] [facility] & [place] 4 13:10:47 Abdominal pain 96460954 Active 2023 Krystyna Washburn NP [address], [address], [place], [address], [place] [facility] - [facility] & [place] 4 13:11:35 Constipation [id number] Active 2023 Krystyna Washburn NP [address], [address], [place], [address], [place] - [facility] - [facility] & [place] 4 13:12:33 Small bowel obstruction [id number] Active Tomeka Coyleelling [place], [place] - [facility] - [place] & [place] 4 11:31:51 Ulcer of duodenum 88556142 Active 2023 Krystyna Washburn NP [address], [address], [place], [address], [place] [facility] - [facility] & [place] 4 12:12:14 Erosive esophagitis 79319342 Active 2023 Krystyna Washburn NP [address], [address], [place], [address], [place] [facility] - [facility] & [place] 4 12:12:14 Anemia 127469075 Active 2023 Krystyna Washburn NP [address], [address], [place] [place], [address], [place] - [facility] & [place] 4 12:12:14 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 Procedures Surgical History Date Name Laterality Status Provider Name and Address Organization Details Recorded Time 02/14/20 24 EGD/Endoscopy completed Katherine Vega [place] - [place] & [place] 02/28/2024 17:09:23 11/22/19 24 EGD/Endoscopy completed Ofelia [place] - [place] & [place] 11/24/2023 10:07:23 03/27/19 23 Abdominal Surgery completed Tomeka [place] - [place] & [place] 06/12/2024 13:26:19 03/27/18 90 Tonsillectomy/Adeno idectomy completed Tomeka St[place] - [place] & [place] 06/12/2024 13:26:19 Cholecystectomy completed Susan [place] - [place] & [place] 01/13/2022 13:26:33 tonsillectomy and adenoidectomy completed Susan [place] - [place] & [place] 01/13/2022 13:26:41 Hip Surgery completed Susan Prince [place] - [place] & [place] 01/13/2022 13:26:58 Knee Surgery completed Susan VALDOVINOS - LPNT - [place] & [place] 01/13/2022 13:27:03 Imaging Results None recorded. Procedure Notes None recorded. Medical Equipment None Reported. Allergies Allergen ID Allergen Name Allergen Category Reaction Reaction Severity Criticality Documentation Date Start Date Code Code System Note Provider Name and Address Organization Details Recorded Time 927584 penicilli n V Not available rash mild Not available 02/13/2024 7984 RxNorm Tomeka [place] null, [place] [facility] & [place] 4 14:26:40 57797 Substance with sulfonami de structure and antibacte rial mechanism of action (substanc e) medicatio n Not available Not available Not available 01/13/2022 34312 8003 SNOMED Susan Niki null, [place] [facility] & [place] 13:04:56 92365 morphine medicatio n rash mild Not available 01/13/2022 7052 RxNorm Tomeka [place] null, [place] [facility] & [place] 14:26:40 42958 Product containin g penicilli n (product) medicatio n Not available Not available Not available 01/13/2022 44579 8001 SNOMED Other react ions and sever ities : 'Adve rse react ion to subst ance' . Tomeka knox, [place] - [facility] - [place] & [place] 11:31:43 Medications Name Sig Start Date Stop Date Status Note LastModified by Organization Details LastModified Time Prescriptio n - Renewal active Not Available Not Available Not Available losartan 50 mg tablet active Not Available Not Available No t Available ketorolac 15 mg/mL injection solution 15 mg by injection route. 01/13 completed Not Available Not Available Not Available promethazin e-DM 6.25 mg-15 mg/5 mL oral syrup take 5 Millilite rs by mouth every 6 hours as needed for cough; caution sedation 01/13 completed Not Available Not Available Not Available acetaminoph en 325 mg tablet 650 mg by oral route. 10/06 completed Not Available Not Available Not Available ipratropium 0.5 mg-albutero l 3 mg (2.5 mg base)/3 mL nebulizatio n soln 3 mL by inhalatio n route. 02/12 completed Not Available Not Available Not Available donepezil 5 mg tablet Take 1 tablet every day by oral route for 90 days. active Not Available Not Available No t Available atorvastati n 10 mg tablet 10 mg by oral route. 10/06 completed Not Available Not Available Not Available fluconazole 150 mg tablet take 1 Tablet by mouth once weekly active Not Available Not Available No t Available citalopram 10 mg tablet Take 1 tablet every day by oral route. 10/05 completed Not Available Not Available Not Available sucralfate 100 mg/mL oral suspension Take 10 mL every day by oral route for 30 days. 06/12 completed Not Available Not Available Not Available donepezil 10 mg tablet TAKE ONE TABLET BY MOUTH DAILY EVERY EVENING active Not Available Not Available No t Available meloxicam 15 mg tablet medicatio n:Meloxic am Oral Tablet 15 MG dose:0 .0 route:PO frequenc y:DAILY 02/12 completed Not Available Not Available Not Available Diprivan 10 mg/mL intravenous emulsion 200 mg by intraven. route. 10/05 completed Not Available Not Available Not Available lisinopril 20 mg tablet 20 mg by oral route. active Not Available Not Available No t Available simvastatin 10 mg tablet Take 20 mg by oral route. 06/12 completed Not Available Not Available Not Available lactated Ringers intravenous solution 1000 mL by intraven. route. 01/15 completed Not Available Not Available Not Available ciprofloxac in 500 mg tablet TAKE ONE TABLET BY MOUTH TWICE DAILY 10/05 completed Not Available Not Available Not Available oxycodone-a cetaminophe n 5 mg-325 mg tablet Take 5 mg by oral route. 02/12 completed Not Available Not Available Not Available Protonix 40 mg intravenous solution 40 mg by intraven. route. 10/06 completed Not Available Not Available Not Available IBU 600 mg tablet Take 600 mg by oral route. 06/12 completed Not Available Not Available Not Available piperacilli n-tazobacta m 3.375 gram intravenous solution 3.375 g by intraven. route. 01/13 completed Not Available Not Available Not Available pantoprazol e 40 mg tablet,damián yed release Take 1 tablet twice a day by oral route for 90 days. active Not Available Not Available No t Available simvastatin 20 mg tablet 20 mg by oral route. active Not Available Not Available No t Available naproxen sodium 550 mg tablet active Not Available Not Available No t Available promethazin e 25 mg/mL injection solution 12.5 mg by injection route. 02/12 completed Not Available Not Available Not Available docusate sodium 100 mg capsule 200 mg by oral route. active Not Available Not Available No t Available mupirocin 2 % topical ointment apply 1 Applicati on on skin twice daily active Not Available Not Available No t Available sodium chloride 0.9 % intravenous solution 250 mL by intraven. route. 10/06 completed Not Available Not Available Not Available estradiol 0.01% (0.1 mg/gram) vaginal cream APPLY 1 APPLICATO RFUL BY VAGINAL ROUTE EVERY 2 DAYS FOR 14 DAYS 10/05 completed Not Available Not Available Not Available ondansetron 4 mg disintegrat ing tablet 4 mg by oral route. 02/12 completed Not Available Not Available Not Available metoprolol tartrate 5 mg/5 mL intravenous solution 5 mg by intraven. route. 02/12 completed Not Available Not Available Not Available simethicone 80 mg chewable tablet Take 80 mg by oral route. 06/12 completed Not Available Not Available Not Available cholecalcif roz (vitamin D3) 25 mcg (1,000 unit) capsule 25 microgram s by oral route. 02/11 completed Not Available Not Available Not Available enoxaparin 40 mg/0.4 mL subcutaneou s syringe 40 mg by sub-q route. 01/13 completed Not Available Not Available Not Available dextrose 10 % in water (D10W) intravenous solution 250 mL by intraven. route. 02/12 completed Not Available Not Available Not Available sodium chloride 0.9 % (flush) injection syringe 10 mL by injection route. 10/06 completed Not Available Not Available Not Available escitalopra m 10 mg tablet take 1 Tablet by mouth daily (Qty 90 NINETY)] 10/05 completed Not Available Not Available Not Available escitalopra m 20 mg tablet TAKE ONE TABLET BY MOUTH DAILY active Not Available Not Available No t Available Gas Relief Ultra Strength 180 mg capsule Take 1 capsule twice a day by oral route for 30 days. active Not Available Not Available No t Available bupropion HCl XL 150 mg 24 hr tablet, extended release take 1 Tablet by mouth daily active Not Available Not Available No t Available memantine 10 mg tablet TAKE 1 Tablet by mouth twice daily active Not Available Not Available No t Available nitrofurant oin monohydrate /macrocryst als 100 mg capsule take 1 capsule by mouth twice a day 10/05 completed Not Available Not Available Not Available Nyamyc 100,000 unit/gram topical powder apply 1 Applicati on apply on skin twice daily active Not Available Not Available No t Available sodium chloride 0.9 % intravenous piggyback 100 mL by intraven. route. 10/06 completed Not Available Not Available Not Available lidocaine (PF) 20 mg/mL (2 %) injection solution 5 mL by injection route. 10/05 completed Not Available Not Available Not Available ondansetron HCl (PF) 4 mg/2 mL injection solution 4 mg by injection route. 10/06 completed Not Available Not Available Not Available Humalog KwikPen (U-100) Insulin 100 unit/mL subcutaneou s 1 unt by sub-q route. 02/12 completed Not Available Not Available Not Available morphine 2 mg/mL intravenous syringe 2 mg by intraven. route. 01/13 completed Not Available Not Available Not Available Vitals Date Recorded Body height Body mass index (BMI) Body weight Body temperature Oxygen saturation Oxygen saturation in Arterial blood by Pulse oximetry Heart rate Provider Name and Address Organization Details Last Updated DateTime 5 157.48 cm 42 kg/m2 293146. 09 g 98 [degF] 92 % 92 % 76 /min Tomeka Ibarra [facility] & [place] 5 13:26:05 Date Recorded Body height Body mass index (BMI) Body weight Body temperature Oxygen saturation Oxygen saturation in Arterial blood by Pulse oximetry Heart rate Provider Name and Address Organization Details Last Updated DateTime 4 157.48 cm 43 kg/m2 678493. 21 g 97.3 [degF] 92 % 92 % 91 /min Katherine Vega [facility] & [place] 4 11:27:47 Date Recorded Body height Body mass index (BMI) Body weight Body temperature Oxygen saturation Oxygen saturation in Arterial blood by Pulse oximetry Heart rate Provider Name and Address Organization Details Last Updated DateTime 4 157.48 cm 43.6 kg/m2 893381. 42 g 97.3 [degF] 94 % 94 % 89 /min Tomeka Ibarra [facility] & [place] 4 11:31:39 Date Recorded Body height Body mass index (BMI) Body weight Body temperature Oxygen saturation Oxygen saturation in Arterial blood by Pulse oximetry Heart rate Provider Name and Address Organization Details Last Updated DateTime 4 157.48 cm 45.1 kg/m2 911077. 88 g 98.4 [degF] 96 % 96 % 83 /min Tomeka Stacey [place] - [place]ILS [facility] & [place] 4 14:26:35 Date Recorded Body height Body mass index (BMI) Body weight Body temperature Oxygen saturation Oxygen saturation in Arterial blood by Pulse oximetry Heart rate Provider Name and Address Organization Details Last Updated DateTime 4 157.48 cm 44.6 kg/m2 564885. 54 g 97.3 [degF] 94 % 94 % 75 /min Tomeka Stacey [place] - ALYSSANT [facility] & [place] 4 10:13:05 Social History Question Answer Notes LastModified by [employer] Details LastModified Time Tobacco Smoking Status Never Smoker Susan Prince [facility], [place]IL[place] [facility] & [place] 01/13/2022 13:26:24 Do You Have An Advance Directive? Yes Information not available 06/12/2024 Are You Blind Or Do You Have Difficulty Seeing? No Information not available 06/12/2024 What Was The Date Of Your Most Recent Tobacco Screening? 02/12/2024 Information not available 06/12/2024 Are You Passively Exposed To Smoke? No Information not available 06/12/2024 Sex: Unknown Functional Status Question Answer Note LastModified by [employer] Details LastModified Time Do you use any illicit or recreational drugs? No Information not available 06/12/2024 What is your level of alcohol consumption? None Information not available 06/12/2024 What is your exercise level? None Information not available 06/12/2024 Mental Status Question Answer Note LastModified by Organization D etails LastModified Time Do you feel stressed (tense, restless, nervous, or anxious, or unable to sleep at night)? [id number] Information not available 06/12/2024 Family History Relationship Description Onset Age of this Age Resolved Age Notes LastModified by Organization Details LastModified Time Father Heart disease [place] ed Not available 01/13/2022 13:25:18 Father Malignant tumor of colon [place] ed Not available 06/12/2024 13:10:36 Mother Osteoporosis [facility] ed Not available 01/13/2022 13:25:58 Mother Malignant tumor of breast [facility] ed [email or web address] Not available 06/12/2024 13:10:36 Medical History Condition Response Obesity Y Arthritis Y Hyperlipidemia Y Dementia Y Reflux/GERD Y Hypertension Y Gynecological HistoryNo gynecological history recorded. 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 prescripti ons have been ordered for 90 day supply. [id number] TJ Aponte [facility] [address] [place] [address] [place] [address] 10/06/2023 09:36:07 10/06/2023 14:23:21 Melena 8540384 K92.1 Patient reports 4 week history of melena. Reports associated abdominal pain, and a bandlike sensation throughout her mid abdomen. Denies nausea or vomiting. Recently started Mobic for history of arthritis. She is not on any blood thinners. Labs from 10/04/2023 noted hemoglobin 8.6, hematocrit 28.1. CT abdomen pelvis performed 10/04/2023 noted a small hiatal hernia, air-fluid level with debris in the right upper quadrant medial to the descending duodenum measuring 4.5 x 6.1 cm possibly representi ng large duodenal diverticul um versus abscess. Given these symptoms recommend EGD for further evaluation , we will get this done as soon as possible to rule out bleeding ulceration . Further recommenda tions pending EGD findings. Anemia 487526596 D64.9 Labs from 10/05/2023 noted hemoglobin 8.6, hematocrit 28.1. Recommend EGD per above. Abdominal pain 36167809 R10.9 Plan for EGD today per above. [id number] TJ Aponte [address] [place] [address] 10/13/2023 11:12:20 10/13/2023 11:46:23 Anemia 219100369 D64.9 plan to recheck CBC today to ensure hemoglobin is trending up Ulcer of duodenum 811246 09 K26.9 Secondary to recent NSAID use. S/p EGD on 10/06/2023 that noted crated ulceration with stigmata of recent bleeding in the duodenal bulb. She was admitted overnight with Protonix drip. She has since discontinu ed Mobic and has been doing b.i.d. PPI therapy, overall feeling much improved. She is occasional darker stools related to oral iron usage. Recommend continue b.i.d. PPI therapy at this time, continue avoidance of any NSAID medication s. Plan for repeat EGD in several weeks to re-evaluat e ulcer site. Erosive esophagitis 4071 9004 K22.10 diffuse erosive esophagiti s, LA grade C noted on EGD. Recommend continue b.i.d. PPI therapy, stop all NSAIDs. Plan to re-evaluat e with EGD in several weeks. [id number] Krystyna Washburn NP [facility] [address] [place] [address] 12/20/2023 11:15:13 12/20/2023 11:58:21 Ulcer of duodenum 96316631 K26.9 Previously noted duodenal ulcer on EGD 10/06/2023 improved on follow-up EGD 11/22/2023 which noted edema in the duodenal bulb. Recommend continued avoidance of NSAIDS. Continue PPI BID as well as Carafate as prescribed . Erosive esophagitis 4071 9004 K22.10 erosive esophagiti s with stricturin g and Schatzki's ring with ulceration noted on EGD 11/16/2023 . Recommend continued PPI b.i.d. as well as Carafate for treatment. Anemia 083522556 D64.9 Continues oral iron supplement s. Denies melena. Will obtain recent labs from Dr. Roy to review. Stricture of esophagus 51337866 K22.2 esophageal stricture and Schatzki's ring noted on EGD 11/22/2023 . Dilatation not performed due to erosive esophagiti s and ulceration . Recommend continued use of PPI b.i.d. and Carafate as prescribed . She does report some dysphagia to solid foods ongoing for several years. Consider repeat EGD in the future based on symptoms. [id number] Krystyna Washburn NP [address] [place] [address] 02/13/2024 13:59:07 02/13/2024 15:32:23 Ulcer of duodenum 48086812 K26.9 Previously noted duodenal ulcer on EGD 10/06/2023 improved on follow-up EGD 11/22/2023 . Recommend continued avoidance of NSAIDS. Continue PPI BID as well as Carafate as prescribed . Erosive esophagitis 4071 9004 K22.10 erosive esophagiti s with stricturin g and Schatzki's ring with ulceration noted on EGD 11/16/2023 . Recommend continued PPI b.i.d. as well as Carafate for treatment. Anemia 211470266 D64.9 Continues oral iron supplement s. Stricture of esophagus 08559736 K22.2 esophageal stricture and Schatzki's ring noted on EGD 11/22/2023 . Dilatation not performed due to erosive esophagiti s and ulceration . Recommend continued use of PPI b.i.d. and Carafate as prescribed . Melena 3269087 K92.1 2 week history of recurrent melena, reports episodes off and on. Plan for CBC today. Given her history of duodenal ulcer and esophageal ulcer recommend follow-up EGD to further evaluate. Patient continues to avoid use of NSAIDs. Continues PPI b.i.d. as well as Carafate. [id number] Krystyna Washburn NP [address] [place] [address] 03/13/2024 09:50:11 03/13/2024 10:31:34 Anemia 332245080 D64.9 Continues oral iron supplement s. History of peptic ulcer 629877134 Z87.11 EGD 02/14/24 with no evidence of recurrent ulcer. Hx duodenal ulcer on EGD 10/06/2023 Recommend continued avoidance of NSAIDS. Continue PPI BID as prescribed . Gastro-eso phageal reflux disease with esophagitis 267955634 K21.00 EGD 02/14/2024 with 1 small tongue of possible Combs's esophagus noted. Patient continues PPI b.i.d. given history PUD and erosive esophagiti s. Abdominal pain 10504044 R10.9 Occasional episodes of upper abdominal pain comes and goes. Recommend OTC simethicon e for treatment as this has improved symptoms in the past. Patient to call with worsening symptoms. Constipation 34797042 K5 9.00 Currently controlled with use of stool softeners and fiber supplement s. [id number] Krystyna Washburn NP [facility] [address] [address] 06/12/2024 13:08:16 06/12/2024 14:03:55 History of peptic ulcer 087814926 Z87.11 EGD 02/14/24 with no evidence of recurrent ulcer. Hx duodenal ulcer on EGD 10/06/2023 Recommend continued avoidance of NSAIDS. Continue PPI BID as prescribed . Anemia 160942093 D64.9 Continues oral iron supplement s. Gastro-eso phageal reflux disease with esophagitis 430460111 K21.00 EGD 02/14/2024 with 1 small tongue of possible Combs's esophagus noted. Patient continues PPI b.i.d. given history PUD and erosive esophagiti s. Will send refills today. Abdominal pain 97658238 R10.9 Occasional episodes of upper abdominal pain comes and goes. Recommend OTC simethicon e for treatment as this has improved symptoms in the past. Patient to call with worsening symptoms or be evaluated in the ED. Constipation 02296262 K5 9.00 Controlled with use of stool softeners and fiber supplement s. Health Concerns Section Related Observation LastModified by Organization Detai ls LastModified Time None Recorded Concern Status LastModified by Organization Details LastModified Time None Recorded Advance Directives Directive Y: Payers Insurance Date Sequence Insurance Name Policy Number Policy Connell Covered Member ID Connell Member ID Guarantor Name 06/21/2024 1 [facility] (MEDICARE REPLACEMENT/A DVANTAGE - PPO) [id number] Taty Luz [id number] Taty Luz 10/06/2023 1 [place] Taty Luz [id number] Taty Luz Notes Date Note Type Note Provider Name and Address Organization Details Recorded Time 10/13/2023 text/html this is a 73-year-old female who is seen today in follow-up. 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 She was admitted overnight with Protonix drip. She has since been off of meloxicam and been taking her PPI b.i.d.. Overall states that she is feeling much better. She has had occasional black stool, she continues oral iron supplementation. States that her dizziness has improved. She denies abdominal pain, nausea or vomiting at this time. TJ Aponte [address], [address], [place], [address], [facility] & [place] 10/18/2023 08:44:42 12/20/2023 text/html Patient returns to clinic today for follow-up on EGD 11/22/2023. She is accompanied today by her daughter. EGD again noted large duodenal diverticulum with edema noted in the duodenal bulb. Small hiatal hernia noted as well as erosive esophagitis with stricturing and Schatzki's ring and ulceration noted. Previously noted crater ulceration with stigmata of recent bleeding in the duodenal bulb from EGD 10/06/2023 had improved. She is no longer taking NSAIDS. She continues Protonix 40 mg po BID as well as Carafate. Denies recurrent melena. She does continue iron supplements and reports occasional dark stool. Reports recent labs with Dr. Roy. Overall she is feeling much better at this time. She does report several year history of dysphagia. Krystyna Washburn NP [address] [facility] [address], [address], [place], [address], [facility] & [place] 12/20/2023 12:16:17 02/13/2024 text/html Patient returns to clinic today with complaints of recurrent melena for the past 2 weeks. Episodes occur off and on. Also experiencing some upper abdominal pain. She continues PPI BID as well as Carafate. She continues to avoid use of NSAIDS. Continues iron due to hx of anemia. EGD 11/22/2023 noted large duodenal diverticulum with edema noted in the duodenal bulb. Small hiatal hernia noted as well as erosive esophagitis with stricturing and Schatzki's ring and ulceration noted. Previously noted crater ulceration with stigmata of recent bleeding in the duodenal bulb from EGD 10/06/2023 had improved. Krystyna Washburn NP [address], [address], [place], [address], [facility] 02/13/2024 14:53:54 03/13/2024 text/html Patient returns to clinic today for follow-up post upper endoscopy. EGD completed 02/14/2024 with possible small tongue of Combs's esophagus, no biopsies obtained. Small hiatal hernia was noted as well as mild gastritis. Large duodenal diverticulum was noted. previously noted erosive esophagitis as well as ulcerations had healed. She continues PPI BID. Continues oral iron supplements. She does continue to report dark stool. She is taking fiber supplements as well as a stool softener every night for treatment of constipation. She does experience episodes of upper abdominal pain, comes and goes, mild overall. She continues to avoid use of NSAIDS. Krystyna Washburn NP [address], [address], [place], [address], [facility] 03/13/2024 13:13:14 06/12/2024 text/html Patient returns to clinic today for follow-up. She continues pantoprazole 40 mg b.i.d. for history of erosive esophagitis and ulceration noted on EGD from 09/2023. Follow-up EGD 01/2024 with no evidence of recurrent ulcer with possible small tongue of Combs's esophagus. Continues oral iron supplements. She continues fiber and stool softeners with controlled constipation. Reports occasional episodes of abdominal pain that comes and goes and varies in location. She has tried use of simethicone previously with improvement however does not take this daily. She continues to avoid use of NSAIDS. Krystyna Washburn, KIM [address], [address], [place], [address], [facility] & [place] 06/21/2024 14:21:02 OBGyn Episode No OBEpisode recorded.
--- OUTSIDE RECORDS SUMMARY | 2024-09-27 21:34 | XMS_ITS | Data Portability ---
Author Organization ARUNA VELMA Marie [facility] Address [address] [facility] [address] [place] [address] Care Team Providers Care Drupal Architect Name Role Phone NANDO ROY Primary Care Provider [phone] Assessment Encounter Date Assessment Date Assessment LastModified by Organization Details LastModified Time 06/01/2023 06/01/2023 72 yo here today for 1y recheck on memory. Since her last visit she was stopped on her donepezil, but has just gotten back on that. Plan is to work up to 10mg dialy. She continues on memantine 10mg BID Her Celexa seems to have been changed to Lexapro. Despite the stress of the last year she is stable MMSE today 29/30, 2/3 recall but got the third with hint They do not need refills at this time. We did discuss the tremor, there is no sign of parkinsons. I did let them know that if it worsens and becomes bothersome then we can consider treatment but at this time she is happy where she is. RTC 1 year, sooner if problems Not available 06/01/2023 16:29:24 06/05/2024 06/05/2024 73 yo here today for recheck Since her visit 1 year ago she has had progression, hallucinations are worse and memory seems worse. Lots of stress and grief over loss of several friends and family members. Will stay on memantine 10mg BID and get back on donepezil 5mg daily. Tomorrow they will discuss the mental health issues with the PCP to see about changing her Lexapro to higher dose or new med? We did discuss the option of adding in seroquel if needed but that does come with risk of stroke or sudden in those over age 65 so it would be better if we could avoid it. We will plan for recheck in 6m, PRN Not available 06/05/2024 13:19:58 Plan of Treatment Reminders Order Date Submit Date Provider Last Modified By Organization Details Last Modified Time Details Appointments None recorded. Lab urinalysis panel, auto 2023 024 [facility] [place] [facility], [address], [address], [place], [address], 16:22:57 Referral None recorded. Procedures None recorded. Surgeries laparoscop ic sacrocolpo pexy (SURG) 2022 023 [facility] [address], [place], [address], 3 16:31:28 Imaging None recorded. Medication Orders memantine 10 mg tablet 2024 025 [facility], [address] [place] [address], [id number], 5 13:19:31 donepezil 5 mg tablet 2024 025 [facility], [address] [place] [address], [id number], 5 16:18:13 Patient TargetsNo targets recorded. Patient Instructions Encounter Date Encounter Id Patient Instructions Last Modified By Organization Details Last Modified Time 10/31/2022 [id number] [facility] Not available 11/02/2022 08:48:28 I had a long discussion with the patient and her regarding sacrocolpopexy. We talked about risk benefits and alternatives at length including but not limited to bleeding, infection, problems with vaginal mesh. [email or web address] Not available 11/02/2022 08:48:13 01/30/2023 [id number] [facility] Not available 02/11/2023 18:53:57 Reason for Referral None Reported. Results Created Date Observation Date Name Description Value Unit Range Abnormal Flag Note LastModifiedBy Organization Detail LastModifiedTime 04/04/1904/04/2023 urina lysis panel , auto Unknown Analyte Clean Catch Not Available [facility] [address], [place], [address], 04/04/2023 09:02:04/04/1904/04/2023 urina lysis panel , auto Unknown Analyte Yellow Not Available [facility] [address], [place], [address], 04/04/2023 09:02:04/04/1904/04/2023 urina lysis panel , auto Unknown Analyte Slight ly Hazy Not Available [facility] [address], [place], [address], 04/04/2023 09:02:04/04/1904/04/2023 urina lysis panel , auto Unknown Analyte 1.010 Not Available [facility] [address], [place], [address], 04/04/2023 09:02:04/04/1904/04/2023 urina lysis panel , auto Unknown Analyte 1.003- 1.035 Not Available [facility] [address], [place], [address], 04/04/2023 09:02:11 04/04/1904/04/2023 urina lysis panel , auto Unknown Analyte 7.0 Not Available [facility] [address], [place], [address], 04/04/2023 09:02:11 04/04/1904/04/2023 urina lysis panel , auto Unknown Analyte 5.0-8. 0 Not Available [facility] [place] [facility] [address], [place], [address], 04/04/2023 09:02:11 04/04/1904/04/2023 urina lysis panel , auto Unknown Analyte Negati ve Not Available [facility] [place] [facility] [address], [place], [address], 04/04/2023 09:02:11 04/04/1904/04/2023 urina lysis panel , auto Unknown Analyte Negati ve Not Available [facility] [place] [facility] [address], [place], [address], 04/04/2023 09:02:11 04/04/1904/04/2023 urina lysis panel , auto Unknown Analyte Negati ve Not Available [facility] [place] [facility] [address], [place], [address], 04/04/2023 09:02:11 04/04/1904/04/2023 urina lysis panel , auto Unknown Analyte Negati ve Not Available [facility] [place] [facility] [address], [place], [address], 04/04/2023 09:02:11 04/04/1904/04/2023 urina lysis panel , auto Unknown Analyte Negati ve Not Available [facility] [place] [facility] [address], [place], [address], 04/04/2023 09:02:11 04/04/1904/04/2023 urina lysis panel , auto Unknown Analyte Negati ve Not Available [facility] [place] [facility] [address], [place], [address], 04/04/2023 09:02:11 04/04/19 24 04/04/2023 urina lysis panel , auto Unknown Analyte Normal Not Available [facility] [address], [place], [address], 04/04/2023 09:02:11 04/04/1904/04/2023 urina lysis panel , auto Unknown Analyte Normal Not Available [facility] [address], [place], [address], 04/04/2023 09:02:11 04/04/1904/04/2023 urina lysis panel , auto Unknown Analyte 15 mg/dl (Sm) Not Available [facility] [address], [place], [address], 04/04/2023 09:02:04/04/1904/04/2023 urina lysis panel , auto Unknown Analyte Negati ve Not Available [facility] [address], [place], [address], 04/04/2023 09:02:11 04/04/1904/04/2023 urina lysis panel , auto Unknown Analyte Normal Not Available [facility] [address], [place], [address], 04/04/2023 09:02:11 04/04/19 24 04/04/2023 urina lysis panel , auto Unknown Analyte Normal 1 mg/dl Not Available [facility] [place] [facility] [address], [place], [address], 04/04/2023 09:02:11 04/04/19 24 04/04/2023 urina lysis panel , auto Unknown Analyte Negati ve Not Available [facility] [place] [facility] [address], [place], [address], 04/04/2023 09:02:11 04/04/19 24 04/04/2023 urina lysis panel , auto Unknown Analyte Negati ve Not Available [facility] [place] [facility] [address], [place], [address], 04/04/2023 09:02:11 04/04/19 24 04/04/2023 urina lysis panel , auto Unknown Analyte Negati ve Not Available [facility] [place] [facility] [address], [place], [address], 04/04/2023 09:02:11 04/04/19 24 04/04/2023 urina lysis panel , auto Unknown Analyte Negati ve Not Available [facility] [place] [facility] [address], [place], [address], 04/04/2023 09:02:11 01/15/20 23 01/14/2023 CT, abdom en + pelvi s, w/o contr ast No observ ation record ed. [facility] [address] [facility], [place], [address], 01/15/2023 21:05:37 Result Notes None recorded. Problems Name Problem SNOMED Code Status Onset Date Resolution Date Notes Provider Name and Address Organization Details Recorded Time Uterovaginal prolapse 62896899 Active 2022 GUZMAN GOTTI JR, MD [address] [place], [address], [facility] 21:16:15 Urge incontinence of urine 26388649 Active 2022 GUZMAN GOTTI JR, MD [address] [place], [address], [facility] 21:16:16 Problem Notes None recorded. Procedures Surgical History Date Name Laterality Status Provider Name and Address Organization Details Recorded Time 01/10/20 23 LAPAROSCOPIC SACROCOLPOPEXY (SURG) completed Aguilar Cervantes [facility] 01/10/2023 16:31:28 10/20/19 23 Uroflowmetry; Complex completed [facility] 10/19/2022 18:07:57 10/20/19 23 Urodynamics Interpretation completed GUZMAN GOTTI JR, MD [address] [place], [address], [facility] 10/26/2022 08:25:48 10/20/19 23 Urodynamics completed [facility] 10/19/2022 18:19:31 11/03/19 16 Cataract Surgery completed Shakira Hitesh [facility] 05/26/2022 13:41:24 05/06/19 16 total knee replacement completed Shakira Hitesh [facility] 05/26/2022 13:41:02 07/25/19 15 total replacement of hip completed Shakira Hitesh [facility] 05/26/2022 13:40:44 Tonsillectomy completed Shakira Hitesh [facility] 05/26/2022 13:36:23 Imaging Results None recorded. Procedure Notes None recorded. Medical Equipment None Reported. Allergies Allergen ID Allergen Name Allergen Category Reaction Reaction Severity Criticality Documentation Date Start Date Code Code System Note Provider Name and Address Organization Details Recorded Time 497854 Product containin g penicilli n (product) medicatio n hives Not available Not available 05/26/2022 14591 8001 SNOMED Shakira [facility] 3 13:34:57 Medications Name Sig Start Date Stop Date Status Note LastModified by Organization Details LastModified Time Protonix 40 mg tablet,de layed release Take 1 tablet every day by oral route. active Not Available Not Available No t Available donepezil 5 mg tablet Take 1 tablet every day by oral route for 90 days. 2024 active Not Available Not Available Not Avai lable Vitamin C 500 mg tablet Take by oral route. active Not Available Not Available No t Available citalopra m 10 mg tablet Take 1 tablet every day by oral route. 10/19 completed Not Available Not Available Not Available donepezil 10 mg tablet Take 1 tablet every day by oral route. 10/19 completed Not Available Not Available Not Available lisinopri l 20 mg tablet Take 1 tablet every day by oral route. active Not Available Not Available No t Available aspirin 81 mg tablet,de layed release Take 1 tablet every day by oral route. 10/19 completed Not Available Not Available Not Available Mobic 15 mg tablet Take 1 tablet every day by oral route. 06/05 completed Bleeding ulcer Not Available Not Available Not Available simvastat in 20 mg tablet Take 1 tablet every day by oral route. active Not Available Not Available No t Available Fiber-Lax 625 mg tablet Take twice a day by oral route. active Not Available Not Available No t Available Lexapro 20 mg tablet Take 1 tablet every day by oral route. active Not Available Not Available No t Available memantine 10 mg tablet Take 1 tablet twice a day by oral route for 90 days. 2024 active Not Available Not Available Not Avai lable Feosol 325 mg (65 mg iron) tablet Take 1 tablet every day by oral route. 10/19 completed Not Available Not Available Not Available Calcium 600 active Not Available Not Available Not Available Effexor XR 05/31 completed Not Available Not Available Not Available omeprazol e 20 mg tablet,de layed release Take by oral route. 06/05 completed Not Available Not Available Not Available Multivita min Women 50 Plus active Not Available Not Available Not Available vitamin B12 2,500 mcg-folic acid 400 mcg disintegr ating tablet Take 1 tablet every day by oral route. active Not Available Not Available No t Available vitamin D3 1,250 mcg (50,000 unit)-vit flores K2 200 mcg capsule Take by oral route. active Not Available Not Available No t Available potassium citrate (replacem ent) 99 mg capsule Take by oral route. active Not Available Not Available No t Available Vitals Date Recorded Body height Body mass index (BMI) Body weight Provider Name and Address Organization Details Last Updated DateTime 04/03/2023 156.21 cm 44.1 kg/m2 893925.39 g Gisele Cadena [facility] 04/04/2023 09:01:18 Date Recorded Body height Body mass index (BMI) Body weight Heart rate Oxygen saturation Oxygen saturation in Arterial blood by Pulse oximetry Systolic And Diastolic Provider Name and Address Organization Details Last Updated DateTime 156.21 cm 44.5 kg/m2 914473. 38 g 66 /min 100 % 100 % 124/80 mm[Hg] Shakira Hitesh [facility] 13:18:33 Date Recorded Body height Body mass index (BMI) Body weight Provider Name and Address Organization Details Last Updated DateTime 10/31/2022 156.21 cm 44.1 kg/m2 740922.39 g Donny Chamorro [facility] 10/31/2022 14:48:09 Date Recorded Body height Body mass index (BMI) Body weight Provider Name and Address Organization Details Last Updated DateTime 01/30/2023 156.21 cm 44.1 kg/m2 896309.39 g Donny Chamorro [facility] 01/30/2023 15:39:51 Social History Question Answer Notes LastModified by Organizat ion Details LastModified Time Tobacco Smoking Status Never [facility] 13:43:25 What Was The Date Of Your Most Recent Tobacco Screening? 06/01/2023 Information not available 06/01/2023 What Is Your Relationship Status? 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 Family History Relationship Description Onset Age of this Age Resolved Age Notes LastModified by Organization Details LastModified Time Father Family history of malignant neoplasm colon, liver Not available 05/26/2022 13:42:21 Mother Family history of malignant neoplasm breast Not available 2022 13:42:21 Mother Dementia Not available 05/26/2022 13:42:31 Sister Family history of malignant neoplasm breast Not available 2022 13:42:21 Sister Seizure disorder Not available 2022 13:42:56 Paternal Grandmother Diabetes mellitus Not available 2022 13:42:43 Maternal Grandfather Heart disease Not available 2022 13:43:12 Medical History No medical history recorded. Gynecological HistoryNo gynecological history recorded. 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 [address] [facility] [place] [address] 08/15/2022 14:03:17 08/23/2022 04:08:23 Uterovaginal prolapse 42067838 N81.4 Urge incon tinence of urine 84993269 N39.41 [id number] GUZMAN GOTTI JR, MD [facility] [address] [facility] [place] [address] 10/19/2022 09:22:10 10/19/2022 18:21:07 Urge incontinence of urine 76550788 N39.41 [id number] GUZMAN GOTTI JR, MD [facility] [address] [place] [address] 10/31/2022 14:47:28 11/03/2022 04:44:56 Uterovaginal prolapse 36571646 N81.4 [id number] GUZMAN GOTTI JR, MD [facility] [address] [place] [address] 01/30/2023 14:20:13 01/30/2023 17:11:27 Uterovaginal prolapse 24200078 N81.4 [id number] GUZMAN GOTTI JR, MD [facility] [address] [address] [place] [address] 04/03/2023 15:57:41 04/11/2023 08:08:17 Uterovaginal prolapse 72041699 N81.4 [id number] TERRI MONTOYA PA-C [facility] [address] [place] [address] 1 06/01/2023 13:05:54 06/02/2023 05:21:21 Memory impairment 720908994 R41.3 Essential tremor 0044971 09 G25.0 [id number] TERRI MONTOYA PA-C [facility] [address] [place] [address] 1 06/05/2024 12:46:44 06/06/2024 05:45:16 Memory impairment 187667060 R41.3 Auditory hallucinations 92093173 R44.0 Health Concerns Section Related Observation LastModified by Organization Detai ls LastModified Time None Recorded Concern Status LastModified by Organization Details LastModified Time None Recorded Advance Directives Directive None Recorded Payers Insurance Date Sequence Insurance Name Policy Number Policy Connell Covered Member ID Connell Member ID Guarantor Name 06/02/[address] [facility] (MEDICARE REPLACEMENT/A DVANTAGE - PPO) [id number] Taty Luz [id number] Taty Luz 02/13/2023 1 [place] Taty Luz [id number] Taty Luz Notes Date Note Type Note Provider Name and Address Organization Details Recorded Time 10/31/2022 text/html Patient is in to day for evaluation of utero vaginal prolapse. She does have urgency incontinence as well. She has pressure from her prolapse. She has failed pessary therapy. She does have frequent urinary tract infections. Distant history of kidney stones. She has seen gynecology, who is considering hysterectomy due to heavy bleeding. She's here today to discuss potential cycle capacity at that time. I have spoken with patient's dental technician and we are considering hysterectomy at the time of prolapse repair with sacrocolpopexy. Urodynamics with pessary in place does not demonstrate any urinary leakage GUZMAN GOTTI JR, MD [address] [place] [address], [address], [facility] 11/02/2022 08:48:31 01/30/2023 text/html Patient is in to day for follow up a vaginal prolapse. She underwent robotic assisted laparoscopic sacral Colpopexy, January 09, 2023. She did have a readmission for alias/partial small bowel obstruction, which resolved with conservative management. She is doing well today. GUZMAN GOTTI JR, [facility] [place] [place], [address], [facility] 02/11/2023 18:54:01 04/03/2023 text/html Patient is in to day for follow up a vaginal prolapse. She underwent robotic assisted laparoscopic sacral Colpopexy, January 09, 2023. She did have a readmission for alias/partial small bowel obstruction, which resolved with conservative management. She is doing well today. GUZMAN GOTTI JR, MD [address] [place] [address], [address], [facility] [place] [facility] 04/09/2023 16:22:59 06/01/2023 text/html 72 yo here today for 1y recheck on dementia. last saw Dr. Rodriguez on 05/26/22: longstanding history of difficulty with word finding and short-term memory issues, has been relatively stable on combination of memantine and donepezil as well as Celexa. There is been a lot of family stress going on and that has played a significant part and to some degree some mild pseudodementia symptoms have been noted. It is slowly getting better otherwise patient doing relatively well and is here for follow-up and for refills on her Celexa. She has had no side effects with Aricept and memantine and is doing well otherwise Here today with her daughter, Joy report that at some point she was taken off the donepezil and has just been put back on. Currently back on 5mg until the 3m loan and then plan to go to 10mgShe is on Lexapro for depression, this in place of the celexaUsing the memantine 10mg BIDNow living on her own since her husbands - daughter lives right across the street. New tremor in the past few monthsNot really bothersome to herMother and grandmother with something similar. in Oct. Also her father and brother within the last year. Then she also had to have surgery. Been a lot of stress. TERRI MONTOYA PA-C [facility] [place], [address], [facility] [place] [facility] 06/01/2023 16:29:37 06/05/2024 text/html 73 yo here today for 1y memory recheck: Since her last visit she was stopped on her donepezil, but has just gotten back on that. Plan is to work up to 10mg dialy. She continues on memantine 10mg BIDHer Celexa seems to have been changed to Lexapro. Despite the stress of the last year she is stableMMSE today , 2/3 recall but got the third with Debra late Mar 2024 pt case regarding auditory hallucinations - has had these about once a month for some time but they had been increasing. Stopped the donepezil at that time. Here today with her daughterThey stopped the donepezil and the memory and the hallucinations are both worse.Since summer 2022 apparently she has has 7 friends and family pass away - every time things seem to stabilize back out someone else passes and she gets worse again.Long history of anxiety/depression - PCP manages this - only on the lexapro - has appt there tomorrow and they will discuss other options.Some issues with communication as well - today is a hard day and she is having trouble finding the right words to express herself. Visit today is being conducted via telehealth using both audio/video. The patient confirms that he/she is physically located in [place] at the time of this visit. Patient expressed understanding of audio/video telehealth as a billable visit and has consented. Patient also expressed understanding that not every condition can be appropriately addressed via telehealth and that this telehealth visit may need to be converted to an in-person visit or may even result in a recommendation to go to the E.R. at the provider s discretion in order to provide the best possible care. TERRI MONTOYA PA-C [address] [place], [address], [facility] [place] [facility] 06/05/2024 13:20:15 OBGyn Episode No OBEpisode recorded.
[2024-09-27 21:37] VITALS: BP 111/84; PULSE 109; RESP 18; TEMP 37.7; O2SAT 98; BMI 54.1
[2024-09-27 21:38] LABS: Lactate Venous 1.6 mmol/L (0.4-2.0); VBG HCO3 21.2 mmol/L (23-30); VBG PCO2 37.0 mmol/L (35-51); VBG PH 7.38 mmol/L (7.31-7.41); VBG PO2 42.3 mmol/L (28-40)
[2024-09-27] MEDS: SODIUM CHLORIDE 0.9% 10ML SYR (RAD ONLY) 10 ML IV (21:44)
[2024-09-27] MEDS: 0.9 % SODIUM CHLORIDE 50 ML VIAL IV (21:44)
[2024-09-27] MEDS: IOPAMIDOL-370 (76%);100ML BOTTLE 80 ML IV (21:44)
[2024-09-27 21:51] LABS: Cholesterol 144 mg/dl (140-200); HDL Cholesterol 43 mg/dl (40-60); Triglycerides 62 mg/dl (30-150)
[2024-09-27 21:52] LABS: Alanine Aminotransferase 21 U/L (12-78); Albumin Level 4.3 g/dl (3.5-5.0); Albumin/Globulin Ratio 1.5 (1.1-1.8); Alkaline Phosphatase 76 U/L (38-126); Anion Gap 17.1 mEq/L (5-15); Aspartate Amino Transferase 48 U/L (14-36); Bilirubin,Total 1.1 mg/dl (0.2-1.3); Blood Urea Nitrogen 27 mg/dl (7-17); Calcium 9.4 mg/dl (8.4-10.2); Carbon Dioxide 24 mmol/L (22.0-30.0); Chloride 104 mmol/L (98-107); Creatinine Clearance Estimated 43 mL/min (50-200); Creatinine,Serum 1.00 mg/dl (0.52-1.04); Estimated Glomerular Filt Rate 54 ml/min (>60); GFR (African American) 66 ML/MIN (>60); Globulin 2.9 g/dL (1.3-3.2); Glucose 127 mg/dl (74-100); Potassium 4.1 mmoL/L (3.5-5.1); Sodium 141 mmol/L (136-145); Total Protein,Serum 7.2 g/dl (6.3-8.2)
[2024-09-27 21:55] LABS: Acetaminophen < 10 ug/ml (10-30); Salicylate < 1.0 mg/dL (2.0-20.0)
--- NOTE | 2024-09-27 21:58 | ECG_ITS ---
APPROVED REPORT Exam: Resting ECG HR:96 bpm ECG Measurements Heart Rate 96 AXES PA 226 P 37 QRSd 108 QRS 5 QT 367 T 39 QTc 421 Conclusion SINUS RHYTHM WITH FIRST DEGREE AV BLOCK ABNORMAL ECG Electronically signed by : OK PRICE, 10/01/2024 08:18:30
[2024-09-27 22:05] LABS: NT Pro Brain Natriuretic Pep. 660 pg/mL (0-125); Troponin I 0.02 ng/ml (0.00-0.034)
[2024-09-27 22:31] VITALS: BP 123/67; PULSE 93; RESP 14; O2SAT 96
[2024-09-27 22:32] LABS: Hematocrit 33.8 % (37.0-47.0); Hemoglobin 11.4 g/dL (12.2-16.2); Immature Granulocytes % 0.5 %; Mean Corpuscular HGB Conc 33.7 g/dL (31.8-35.4); Mean Corpuscular Hemoglobin 31.1 pg (27.0-31.2); Mean Corpuscular Volume 92.1 fl (81-99); Nucleated Red Blood Cells % 0 %; Platelet Count 202 K/mm3 (142-424); Red Blood Count 3.67 M/mm3 (4.20-5.40); Red Cell Distribution Width-SD 43.4 fL; White Blood Count 8.3 K/mm3 (4.8-10.8)
[2024-09-27 22:41] LABS: Activated Partial Thrombo Time 25.0 seconds (22.8-30.6); INR 1.08 (0.9-1.1); Prothrombin Time 11.9 seconds (10.1-12.5)
[2024-09-27 23:01] VITALS: BP 117/63; PULSE 89; RESP 12; O2SAT 97
[2024-09-27 23:31] VITALS: BP 109/59; PULSE 88; RESP 13; O2SAT 96
[2024-09-28] VITALS (8 sets, daily range): BP systolic 104–135; BP diastolic 51–86; PULSE 76–95; RESP 13–18; TEMP 36.7–37.7; O2SAT 94–97; BMI 37.0
--- NOTE | 2024-09-28 00:23 | PC.NURSE ---
called report to Lia Lowery RN
--- NOTE | 2024-09-28 00:51 | PC.NURSE ---
Patient arrived to floor via stretcher from ED at 00:47.
[2024-09-28 02:06] LABS: Troponin I 0.04 ng/ml (0.00-0.034)
--- NOTE | 2024-09-28 04:01 | PC.NURSE ---
Alert to name only. On arrival to floor patient was only waking to painful stimuli, would only open eyes but not speak. Patient received a bath after family went home, patient woke up, when rolling, patient would scream and say words that were garbled and not making sense. Once patient finished bath, patient was more alert and responded well to her name. Patient does not follow commands well. Purewick in place due to incontinence. Redness noted to abdominal folds. Room air. Call light in reach. Bed alarm on.
[2024-09-28 04:07] LABS: Troponin I 0.05 ng/ml (0.00-0.034)
--- NOTE | 2024-09-28 05:59 | EXP.HP ---
History of Present Illness *Admission Date: 09/27/24 *Reason for visit:: AMS *History of present illness: Patient is a 73-year-old female with past medical history of dementia obesity who presents to the hospital due to change in mental status, generalized weakness, frequent falls at home. Patient is unable to provide history at time of my evaluation, most of the history is from patient's chart, reportedly patient lives by herself, daughter checks on her almost every day. Patient was found confused and was sent to the emergency department for further evaluation. On further evaluation patient was found to have sepsis, confused. Patient was admitted for further management. According to the family patient has been having significant decline over the past 2 weeks and they are interested in patient getting to intermediate. According to family patient has been having frequent falls at home. [facility] Disclaimer: The information contained in this section may have been updated after the patient was seen, as this information can be updated by other users. Medical History (Updated 09/28/24 @ 06:01 by Jailene Lofton MD) Dementia Osteoarthritis History of gastroesophageal reflux (GERD) History of cataract History of anemia Prolapsed bladder Surgical History (Updated 09/28/24 @ 01:06 by Dana Lowery RN) H/O: hysterectomy History of cholecystectomy History of left knee replacement History of right hip replacement Hx of tonsillectomy Family History Mother Cancer Father Cancer Social History (Updated 09/28/24 @ 01:06 by Dana Lowery RN) Smoking Status: Never smoker alcohol intake: never current occupational status: retired Travel in the last 8 weeks?: None Have you lived/traveled outside US in past 30 days?: No Contact w/someone who lives/traveled outside US past 30 days?: No Exposure to someone with infectious disease in past 14 days?: No Do you have a fever (greater than 100.4 F or 38 C)?: No Have you tested positive for COVID-19?: No Exposed to someone with COVID-19 in past 14 days?: No Do you have a sore throat?: No Do you have a cough?: No Do you have any weakness?: No Are you experiencing any nausea/vomitting?: No Do you have any diarrhea?: No Are you experiencing any unusual bleeding?: No Do you have any muscle aches/pain?: No Do you have any abdominal pain?: No Are you experiencing loss of taste or smell?: No Other Medical History Have you received the Flu Vaccine for this season: No Have you received the Pneumonia Vaccine: No Review of Systems Review of Systems Review of systems:: unable to obtain Meds Home Medications and Allergies Home Medications ?Medication ?Instructions ?Recorded ?Confirmed ?Type ascorbic acid (vitamin C) 500 mg 500 mg PO DAILY 05/25/22 09/28/24 History tablet,extended release cholecalciferol (vitamin D3) 125 125 mcg PO DAILY 05/25/22 09/28/24 History mcg (5,000 unit) capsule simvastatin 20 mg tablet 20 mg PO DAILY 05/25/22 09/28/24 History donepezil 5 mg tablet 5 mg PO HS 07/31/23 09/28/24 History escitalopram oxalate 20 mg tablet 20 mg PO HS 07/31/23 09/28/24 History memantine 10 mg tablet 10 mg PO BID 07/31/23 09/28/24 History pantoprazole 40 mg tablet,delayed 40 mg PO BID 10/17/23 09/28/24 History release bupropion HCl 150 mg 24 hr tablet, 150 mg PO DAILY 09/28/24 09/28/24 History extended release losartan 50 mg tablet (Cozaar) 50 mg PO HS 09/28/24 09/28/24 History New Prescriptions to Start Prescriptions: Allergies Allergy/AdvReac Type Severity Reaction Status Date / Time morphine (MORPHINE) Allergy Unknown HIVES/FEVER Verified 01/16/24 15:14 Penicillins (PENICILLINS) Allergy Unknown I-RASH Verified 01/16/24 15:14 Sulfa (Sulfonamide Allergy Unknown I-RASH Verified 01/16/24 15:14 Antibiotics) (SULFA (SULFONAMIDE ANTIBIOTICS)) Exam Data for Last 24 hours Vital signs and Labs for Last 24 Hours: Temp Pulse Resp BP Pulse Ox O2 Del Method 98.0 F 77 15 116/58 L 94 L Room Air 09/28/24 04:00 09/28/24 04:00 09/28/24 04:00 09/28/24 04:00 09/28/24 04:00 09/28/24 04:00 Laboratory Results - last 24 hr 09/27/24 21:20: VBG pH 7.38, VBG pCO2 37.0, VBG pO2 42.3 H, VBG HCO3 21.2 L, VBG Total CO2 22.4 L, VBG O2 Saturation 75.8 H, VBG Base Excess -3.9 L, VBG Lactic Acid 1.6, Sodium 141, Potassium 4.1, Chloride 104, Carbon Dioxide 24, Anion Gap 17.1 H, BUN 27 H, Creatinine 1.00, Estimated Creat Clear 43, Estimated GFR 54 L, Est GFR ( Amer) 66, Glucose 127 H, Calcium 9.4, Total Bilirubin 1.1, AST 48 H, ALT 21, Alkaline Phosphatase 76, Troponin I 0.02, NT-Pro-B Natriuret Pep 660 H, Total Protein 7.2, Albumin 4.3, Globulin 2.9, Albumin/Globulin Ratio 1.5, Triglycerides 62, Cholesterol 144, LDL Cholesterol Direct 63.64 L, VLDL Cholesterol 12, HDL Cholesterol 43, Cholesterol/HDL Ratio 3.3, Salicylates < 1.0 L, Acetaminophen < 10 L, Plasma/Serum Alcohol < 10 09/27/24 22:25: WBC 8.3, RBC 3.67 L, Hgb 11.4 L, Hct 33.8 L, MCV 92.1, MCH 31.1, MCHC 33.7, RDW 13.0, Plt Count 202, MPV 9.8, Neut % (Auto) 85.2 H, Lymph % (Auto) 7.5 L, [place] % (Auto) 6.6, Eos % (Auto) 0.1, Baso % (Auto) 0.1, Neut # (Auto) 7.1, Lymph # (Auto) 0.6 L, [place] # (Auto) 0.6, Eos # (Auto) 0.0, Baso # (Auto) 0.0, PT 11.9, INR 1.08, APTT 25.0 09/28/24 01:13: Troponin I 0.04 H 09/28/24 03:27: Troponin I 0.05 H I & O for Last 24 hours: Intake & Output 09/25/24 09/26/24 09/27/24 09/28/24 23:59 23:59 23:59 23:59 Weight 142.882 kg 98.566 kg Constitutional Constitutional: somnolent *Routine HEENT Exam Head: Present normocephalic Eye: Present EOMI and PERRL ENT: Present mucous membranes moist *Routine Neck Exam Neck: Present supple; Absent lymphadenopathy *Routine Respiratory Exam Respiratory: Present CTA bilaterally *Routine Cardiovascular Exam Cardiovascular: Present RRR *Routine Abdominal Exam Abdominal: Present soft and normoactive bowel sounds; Absent tenderness *Routine Rectal Exam Rectal:: deferred *Routine Genitalia Exam Genitalia:: deferred *Routine Extremities Exam Extremities: Absent cyanosis, clubbing or edema *Routine Skin Exam Skin: Present warm; Absent rash *Routine Neurological Exam Comments: confused and not following commands Assessment and Plan *Assessment and plan (1) Declining functional status: Status: Acute Category: Medical Code(s): R53.81 - Other malaise (2) Fall at home: Status: Acute Qualifiers: Encounter type: initial encounter Qualified Code(s): W19.XXXA - Unspecified fall, initial encounter; Y92.009 - Unspecified place in unspecified non-institutional (private) residence as the place of occurrence of the external cause Category: Medical Code(s): W19.XXXA - Unspecified fall, initial encounter; Y92.009 - Unspecified place in unspecified non-institutional (private) residence as the place of occurrence of the external cause (3) Adult failure to thrive: Status: Acute Category: Medical Code(s): R62.7 - Adult failure to thrive Plan Patient is a 73-year-old female with past medical history of dementia obesity who presents to the hospital due to change in mental status, generalized weakness, frequent falls at home. Patient is unable to provide history at time of my evaluation, most of the history is from patient's chart, reportedly patient lives by herself, daughter checks on her almost every day. Patient was found confused and was sent to the emergency department for further evaluation. On further evaluation patient was found to have sepsis, confused. Patient was admitted for further management. According to the family patient has been having significant decline over the past 2 weeks and they are interested in patient getting to intermediate. According to family patient has been having frequent falls at home. Assessment and plan Frequent falls Advanced history of dementia Acute encephalopathy Check UA CT head,'s CTA head and neck negative for acute intracranial process Trauma workup in the emergency department including CT head, x-rays of foot, ankle-negative for acute process Chest x-ray performed-negative for signs of pneumonia Debility Functional decline Adult failure to thrive Consult PT/OT Patient family is interested in getting patient to SNF DVT prophylaxis-subcutaneous heparin
[2024-09-28 06:06] LABS: Chloride 108 mmol/L (98-107); Sodium 140 mmol/L (136-145)
[2024-09-28 06:07] LABS: Potassium 3.5 mmoL/L (3.5-5.1)
[2024-09-28 06:09] LABS: Blood Urea Nitrogen 24 mg/dl (7-17); Creatinine Clearance Estimated 78 mL/min (50-200); Creatinine,Serum 0.80 mg/dl (0.52-1.04); Estimated Glomerular Filt Rate 70 ml/min (>60); GFR (African American) 85 ML/MIN (>60)
[2024-09-28 06:10] LABS: Anion Gap 17.5 mEq/L (5-15); Calcium 8.5 mg/dl (8.4-10.2); Carbon Dioxide 18 mmol/L (22.0-30.0); Glucose 83 mg/dl (74-100)
--- NOTE | 2024-09-28 06:36 | PC.NURSE ---
Bladder scanned patient 0600= [id number], ask patient to attempt to urinate, purewick in place, patient was able to urinate on her own. UA collected and send to lab.
[2024-09-28 06:57] LABS: Microscopic, Urine URINE MICROSCOPIC (MICROSCOPIC)
[2024-09-28 07:06] LABS: Color,Urine YELLOW (Yellow); Glucose,Urine (UA) Negative (Negative); Ketones,Urine 1+ (Negative); Leukocyte Esterase,Urine TRACE (Negative); PH,Urine 6.0 (5.0-8.5); Protein,Urine Negative (Negative); Specific Gravity, Urine 1.015 (1.005-1.030); Urobilinogen,Urine 1.0 EU/dl (0.2)
[2024-09-28 07:12] LABS: Barbiturates Screen,Urine Negative ng/ml (<200); Benzodiazepines Screen,Urine Negative ng/ml (<200)
[2024-09-28 07:13] LABS: Amphetamine/Metha Screen,Urine Negative ng/ml (<1000)
[2024-09-28 07:14] LABS: Methadone Screen,Urine Negative ng/ml (<300)
[2024-09-28 07:16] LABS: Opiate Screen,Urine Negative ng/ml (<300)
[2024-09-28 07:17] LABS: Phencyclidine Screen,Urine Negative ng/ml (<25)
[2024-09-28 07:21] LABS: Bilirubin,Urine Negative (Negative)
[2024-09-28 07:29] LABS: Hematocrit 34.8 % (37.0-47.0); Hemoglobin 11.7 g/dL (12.2-16.2); Immature Granulocytes % 0.4 %; Mean Corpuscular HGB Conc 33.6 g/dL (31.8-35.4); Mean Corpuscular Hemoglobin 31.0 pg (27.0-31.2); Mean Corpuscular Volume 92.1 fl (81-99); Nucleated Red Blood Cells % 0 %; Platelet Count 191 K/mm3 (142-424); Red Blood Count 3.78 M/mm3 (4.20-5.40); Red Cell Distribution Width-SD 43.3 fL; White Blood Count 7.9 K/mm3 (4.8-10.8)
[2024-09-28 07:43] LABS: Bacteria,Urine 1+ /lpf; RBC,Urine Occasional #/hpf (0-3); WBC,Urine Occasional #/hpf (0-3)
[2024-09-28 08:07] LABS: Creatine Kinase 543 U/L (30-135)
--- NOTE | 2024-09-28 09:31 | HMH.PHAINT1 ---
Pharmacy Intervention Comments: MEDICATION RECONCILIATION COMPLETED ON PATIENT USING EXTERNAL FILL HISTORY FROM PHARMACY. -AYAD COYLE, DAYAMID
[2024-09-28] MEDS: MEMANTINE 10MG TABLET 10 MG PO ×2 (09:55→20:23)
[2024-09-28] MEDS: HEPARIN SODIUM 5,000 UNIT/ML VIAL 5000 UNIT SUBCUT ×2 (09:56→20:22)
--- NOTE | 2024-09-28 12:08 | HMH.PTEV ---
Physical Therapy Evaluation Rehab PT IP Evaluation Start: 09/28/24 01:06 Freq: ONCE Status: Active Protocol: Document 09/28/24 12:03 PHORJULIEN (Rec: 09/28/24 12:08 PHORNE [id number]) Subjective/History History History 73 yowf adm to [facility] with general weakness and decreased mentation. She suffers form dementia at baseline. She lives alone, 2-3 AM[place] the home, and is generally independent with mobility. Unknown if she uses an AD at baseline as pt remains significantly confused this am and has difficulty completing sentences. No family present at this time. Subjective Subjective Pt reports no c/o pain or discomfort at this time and does agree to mobility assessment. [facility] How much help from another person do you currently need... Turning from your None back to your side while in a flat bed without using bedrails? Moving from lying on A little back to sitting on the side of a flat bed without using bedrails? Moving to and from a A lot bed to a chair ( including a wheelchair)? Standing up from a A lot chair using your arms? (e.g., wheelchair, bedside chair) Walking in hospital A lot room? Climbing 3-5 steps A lot with a railing? Mobility Score 15 Mobility Level [facility] Mobility 4 Move to chair/commode Mobility Calculator Rehab PT IP Eval Objective Appearance Patient Behavior Anxious,Distractible,Confused Patient Orientation Person Difficulty following moderate instructions Speech Pattern Clear,Stuttering,Difficulty Finding Words Ambulation Patient Able to No Ambulate Balance Ability to Arise Able, uses arms to help Sitting Balance Leans or slides in chair Standing Balance Unsteady Dynamic Sitting Fair Balance Ability Dynamic Standing Poor Balance Ability Transfers Bed Transfer Ability Supervision/Stand by Chair Transfer Moderate x 1 (50% assist) Ability Sit to Stand Bed Moderate x 1 (50% assist) Transfer Ability Sit to Stand Chair Moderate x 1 (50% assist) Transfer Ability Rehab PT IP prob,goals,plan Problems Date of Evaluation: 09/28/24 PT IP Problems Bed Mobility,Transfers,Gait Rehab Potential Rehab Potential Good Plan PT Intervention Plan Bed Mobility,Transfers,Gait,Therapeutic Exercise PT Plan Frequency Daily Duration LOS Discharge Goals Bed Transfer Ability Independent Sit to Stand Chair Minimal x 2 (25% assist) Transfer Ability Ambulation Assistive Rolling Walker Device Ambulation Distance 5 (feet) Discharge Plan PT Discharge Plan Pt is currently most appropriate for rehab placement once medically stable for d/c. Skilled acute inpatient therapy is indicated to improve general strength, transfer ability, and ambulation in order to return pt to [facility]. Eval Complexity Eval Charge Codes 41135 - High Complexity PHYSICIAN CERTIFICATION: I certify the specified therapy services for Taty Luz are required, authorized, and reviewed every 30 days.
--- NOTE | 2024-09-28 12:19 | P.PN_ITS ---
Subjective *Date: 09/28/24 *Time: 17:28 Interval history: Pleasant on exam. Answers tangential. Appears confused. Having difficulty with word finding. Asked where she was at the hospital and told fascinating story about wedding and family and lost her train of thought. Pleasant on exam. Was found down at home. Stable on room air. No nausea or vomiting. Significant edema in her legs. Medical Exam Vital signs and Labs for Last 24 Hours: Vital Signs Temp Pulse Pulse Resp BP BP Pulse Ox 09/28/24 09:00 09/28/24 08:00 09/28/24 08:00 98.2 F 90 18 108/54 L 97 09/28/24 06:45 09/28/24 05:00 09/28/24 04:00 98.0 F 77 15 116/58 L 94 L 09/28/24 02:59 09/28/24 01:27 98.4 F 90 16 108/66 L 95 09/28/24 01:00 09/28/24 00:38 99.9 F H 85 14 104/58 L 09/28/24 00:31 76 13 104/58 L 95 09/28/24 00:15 09/28/24 00:01 91 H 13 121/67 96 09/27/24 23:31 88 13 109/59 L 96 09/27/24 23:01 89 12 117/63 97 09/27/24 22:31 93 H 14 123/67 96 09/27/24 21:37 99.9 F H 109 H 18 111/84 98 O2 Del Method 09/28/24 09:00 Room Air 09/28/24 08:00 Room Air 09/28/24 08:00 Room Air 09/28/24 06:45 Room Air 09/28/24 05:00 Room Air 09/28/24 04:00 Room Air 09/28/24 02:59 Room Air 09/28/24 01:27 Room Air 09/28/24 01:00 Room Air 09/28/24 00:38 Room Air 09/28/24 00:31 09/28/24 00:15 Room Air 09/28/24 00:01 09/27/24 23:31 09/27/24 23:01 09/27/24 22:31 09/27/24 21:37 Room Air Intake and Output 09/27/24 09/28/24 09/28/24 23:59 07:59 15:59 Intake Total 150 / 510 360 / 510 Output Total 300 / 300 Balance -150 / 210 360 / 210 Intake: Intake, Oral Amount 150 / 510 360 / 510 Output: Output, Urine Amount 300 / 300 Other: Number of Unmeasured Voids 1 Weight 142.882 kg 98.566 kg Patient Weight 09/28/24 23:59 Weight 98.566 kg Laboratory Results - last 24 hr 09/27/24 21:20: VBG pH 7.38, VBG pCO2 37.0, VBG pO2 42.3 H, VBG HCO3 21.2 L, VBG Total CO2 22.4 L, VBG O2 Saturation 75.8 H, VBG Base Excess -3.9 L, VBG Lactic Acid 1.6, Sodium 141, Potassium 4.1, Chloride 104, Carbon Dioxide 24, Anion Gap 17.1 H, BUN 27 H, Creatinine 1.00, Estimated Creat Clear 43, Estimated GFR 54 L, Est GFR ( Amer) 66, Glucose 127 H, Calcium 9.4, Total Bilirubin 1.1, AST 48 H, ALT 21, Alkaline Phosphatase 76, Troponin I 0.02, NT-Pro-B Natriuret Pep 660 H, Total Protein 7.2, Albumin 4.3, Globulin 2.9, Albumin/Globulin Ratio 1.5, Triglycerides 62, Cholesterol 144, LDL Cholesterol Direct 63.64 L, VLDL Cholesterol 12, HDL Cholesterol 43, Cholesterol/HDL Ratio 3.3, Salicylates < 1.0 L, Acetaminophen < 10 L, Plasma/Serum Alcohol < 10 09/27/24 22:25: WBC 8.3, RBC 3.67 L, Hgb 11.4 L, Hct 33.8 L, MCV 92.1, MCH 31.1, MCHC 33.7, RDW 13.0, Plt Count 202, MPV 9.8, Neut % (Auto) 85.2 H, Lymph % (Auto) 7.5 L, [place] % (Auto) 6.6, Eos % (Auto) 0.1, Baso % (Auto) 0.1, Neut # (Auto) 7.1, Lymph # (Auto) 0.6 L, [place] # (Auto) 0.6, Eos # (Auto) 0.0, Baso # (Auto) 0.0, PT 11.9, INR 1.08, APTT 25.0 09/28/24 01:13: Troponin I 0.04 H 09/28/24 03:27: Troponin I 0.05 H 09/28/24 05:34: WBC 7.9, RBC 3.78 L, Hgb 11.7 L, Hct 34.8 L, MCV 92.1, MCH 31.0, MCHC 33.6, RDW 12.8, Plt Count 191, MPV 9.9, Neut % (Auto) 77.2, Lymph % (Auto) 12.3, [place] % (Auto) 9.1, Eos % (Auto) 0.6, Baso % (Auto) 0.4, Neut # (Auto) 6.1, Lymph # (Auto) 1.0, [place] # (Auto) 0.7, Eos # (Auto) 0.1, Baso # (Auto) 0.0, Sodium 140, Potassium 3.5, Chloride 108 H, Carbon Dioxide 18 L, Anion Gap 17.5 H , BUN 24 H, Creatinine 0.80, Estimated Creat Clear 78, Estimated GFR 70, Est GFR ( Amer) 85 D, Glucose 83 D, Calcium 8.5 09/28/24 06:30: Urine Color Yellow, Urine Appearance Clear, Urine pH 6.0, Ur Specific [place] 1.015, Urine Protein Negative, Urine Glucose (UA) Negative, Urine Ketones 1+, Urine Blood Trace-i, Urine Nitrate Positive A, Urine Bilirubin Negative, Urine Urobilinogen 1.0, Ur Leukocyte Esterase Trace, Urine RBC Occasional, Urine WBC Occasional, Ur Squamous Epith Cells 3-5, Urine Bacteria 1+, Urine Opiates Screen Negative, Urine Methadone Screen Negative, Ur Barbituates Screen Negative, Ur Phencyclidine Scrn Negative, Ur Amphetamines Screen Negative, U Benzodiazepines Scrn Negative, Urine Cocaine Screen Negative, U Marijuana (THC) Screen Negative 09/28/24 07:25: Total Creatine Kinase 543 H* I & O for Labs for Last 24 Hours: Intake & Output 09/25/24 09/26/24 09/27/24 09/28/24 23:59 23:59 23:59 23:59 Intake Total 510 / 510 Output Total 300 / 300 Balance 210 / 210 Weight 142.882 kg 98.566 kg Constitutional: Present no acute distress, obese, chronically ill appearing and cooperative Head: Present atraumatic ENT: Present normal exam Respiratory: Present normal respiratory effort; Absent rhonchi, wheezes or crackles Cardiac: Present Reg Rate and Rhythm GI: Present soft and normal bowel sounds; Absent distention or tenderness Extremities: Present normal inspection, full ROM and edema (2+ to knees) Skin: Present intact; Absent erythema Neuro: Present Grossly Intact, alert, awake and moves all extremities Comment:: Oriented to self only. Does not know where she is or why Assessment and Plan *Assessment and plan (1) Declining functional status: Status: Acute Category: Medical Code(s): R53.81 - Other malaise (2) Fall at home: Status: Acute Qualifiers: Encounter type: initial encounter Qualified Code(s): W19.XXXA - Unspecified fall, initial encounter; Y92.009 - Unspecified place in unspecified non-institutional (private) residence as the place of occurrence of the external cause Category: Medical Code(s): W19.XXXA - Unspecified fall, initial encounter; Y92.009 - Unspecified place in unspecified non-institutional (private) residence as the place of occurrence of the external cause (3) Adult failure to thrive: Status: Acute Category: Medical Code(s): R62.7 - Adult failure to thrive (4) Dementia: Status: Acute Category: Medical Code(s): F03.90 - Unspecified dementia, unspecified severity, without behavioral disturbance, psychotic disturbance, mood disturbance, and anxiety (5) UTI (urinary tract infection): Status: Acute Category: Medical Code(s): N39.0 - Urinary tract infection, site not specified (6) Rhabdomyolysis: Status: Acute Category: Medical Code(s): M62.82 - Rhabdomyolysis (7) NSTEMI (non-ST elevated myocardial infarction): Problem Comment: type 2 Status: Acute Category: Medical Code(s): I21.4 - Non-ST elevation (NSTEMI) myocardial infarction Plan Patient is a 73-year-old female with past medical history of dementia obesity who presents to the hospital due to change in mental status, generalized weakne ss, frequent falls at home. Patient is unable to provide history at time of my evaluation, most of the history is from patient's chart, reportedly patient lives by herself, daughter checks on her almost every day. Patient was found confused and was sent to the emergency department for further evaluation. On further evaluation patient was found to have sepsis, confused. Patient was admitted for further management. According to the family patient has been having significant decline over the past 2 weeks and they are interested in patient getting to halfway. According to family patient has been having frequent falls at home. Continues to require inpatient management. Problems addressed as follows: Frequent falls Rhabdomyolysis NSTEMI - Falling at home. Workup in the ED negative for acute intracranial process or trauma. No fractures on x-rays of foot or ankle. - CK elevated at 543. Troponin elevated from 0.02-0.05. No ischemic changes on EKG - White count normal 7.9, hemoglobin 11.7. Kidney function normal with BUN 24, creatinine 0.8. - NSTEMI consistent with type II from stress of falls and acute illness. - Holding on IV fluids. Making good urine. - Appears volume overloaded with her edema. Administered Lasix 40 mg IV once. Will obtain echo to evaluate for CHF given her lower extremity edema - BNP obtained, elevated 1100 - Repeat CBC, CMP, magnesium ordered for the UTI: Urinalysis abnormal, positive for bacteria, nitrate, trace leuk esterase. Initiated on ceftriaxone 1 g daily. Urine culture pending History of dementia Acute encephalopathy Depression - Confusion multifactorial. Suspect secondary to infection, consistent with toxic encephalopathy - Monitor for improvement with treatment of UTI - Continue home meds for dementia and including memantine 10 mg twice daily, Lexapro 20 mg nightly, donepezil 5 mg nightly, Wellbutrin 150 mg daily Therapy consulted to evaluate patient for possible placement DNI Regular diet DVT prophylaxis-subcutaneous heparin
[2024-09-28 13:44] LABS: NT Pro Brain Natriuretic Pep. 1100 pg/mL (0-125)
[2024-09-28] MEDS: FUROSEMIDE 40MG/4ML VIAL 40 MG IV (15:27)
--- NOTE | 2024-09-28 18:43 | PC.NURSE ---
pt alert to self only and has been pleasant majority of the day till around 1800 then she began to yell out. pt has been toileted and repositioned. +1 pitting edema to ble. bilat feet have what appears to be callus's, currently floating on pillows. gave daughter an update this afternoon. no needs at this time, pt sitting up in bed
[2024-09-28] MEDS: PANTOPRAZOLE 40MG TABLET 40 MG PO (20:23)
[2024-09-28] MEDS: ESCITALOPRAM 20MG TABLET 20 MG PO (20:23)
[2024-09-29] VITALS: BP 121/89; PULSE 67; RESP 16; TEMP 36.9; O2SAT 98
--- NOTE | 2024-09-29 02:14 | PC.NURSE ---
Pt alert to self and occasionally place. Pleasantly confused. Continually denies pain or any additional needs. Resting in bed with eyes closed. Respirations even and unlabored. Bed is low, locked, and call light is in reach. Bed alarm is on and functioning.
[2024-09-29 04:00] VITALS: BP 124/72; PULSE 75; RESP 16; TEMP 37.1; O2SAT 98; BMI 35.9
[2024-09-29 07:18] LABS: Hematocrit 34.4 % (37.0-47.0); Hemoglobin 11.6 g/dL (12.2-16.2); Immature Granulocytes % 0.2 %; Mean Corpuscular HGB Conc 33.7 g/dL (31.8-35.4); Mean Corpuscular Hemoglobin 30.9 pg (27.0-31.2); Mean Corpuscular Volume 91.5 fl (81-99); Nucleated Red Blood Cells % 0 %; Platelet Count 180 K/mm3 (142-424); Red Blood Count 3.76 M/mm3 (4.20-5.40); Red Cell Distribution Width-SD 43.5 fL; White Blood Count 5.8 K/mm3 (4.8-10.8)
[2024-09-29 08:00] VITALS: BP 99/78; PULSE 87; RESP 16; TEMP 36.7; O2SAT 97
[2024-09-29] MEDS: MEMANTINE 10MG TABLET 10 MG PO ×2 (08:09→20:45)
[2024-09-29] MEDS: HEPARIN SODIUM 5,000 UNIT/ML VIAL 5000 UNIT SUBCUT ×2 (08:09→20:45)
[2024-09-29 08:26] LABS: Alanine Aminotransferase 23 U/L (12-78); Albumin Level 3.7 g/dl (3.5-5.0); Albumin/Globulin Ratio 1.4 (1.1-1.8); Alkaline Phosphatase 80 U/L (38-126); Anion Gap 14.1 mEq/L (5-15); Aspartate Amino Transferase 46 U/L (14-36); Bilirubin,Total 0.7 mg/dl (0.2-1.3); Blood Urea Nitrogen 23 mg/dl (7-17); Calcium 8.7 mg/dl (8.4-10.2); Carbon Dioxide 28 mmol/L (22.0-30.0); Chloride 100 mmol/L (98-107); Creatinine Clearance Estimated 75 mL/min (50-200); Creatinine,Serum 0.90 mg/dl (0.52-1.04); Estimated Glomerular Filt Rate 61 ml/min (>60); GFR (African American) 74 ML/MIN (>60); Globulin 2.7 g/dL (1.3-3.2); Glucose 89 mg/dl (74-100); Magnesium 1.9 mg/dl (1.6-2.3); Phosphorous 3.3 mg/dl (2.5-4.5); Potassium 3.1 mmoL/L (3.5-5.1); Sodium 139 mmol/L (136-145); Total Protein,Serum 6.4 g/dl (6.3-8.2)
[2024-09-29 12:00] VITALS: BP 109/64; PULSE 84; RESP 18; TEMP 36.9; O2SAT 98
--- NOTE | 2024-09-29 12:10 | EXP.ACUTE.PN ---
Subjective *Date: 09/29/24 *Time: 12:10 Medical Exam Vital signs and Labs for Last 24 Hours: Vital Signs Temp Pulse Resp BP Pulse Ox O2 Del Method 09/29/24 08:00 Room Air 09/29/24 08:00 98.1 F 87 16 99/78 L 97 Room Air 09/29/24 06:38 Room Air 09/29/24 05:00 Room Air 09/29/24 04:00 98.8 F 75 16 124/72 98 Room Air 09/29/24 03:00 Room Air 09/29/24 01:00 Room Air 09/29/24 00:00 98.5 F 67 16 121/89 98 Room Air 09/28/24 23:00 Room Air 09/28/24 21:00 Room Air 09/28/24 20:00 98.1 F 95 H 16 135/51 L 97 Room Air 09/28/24 20:00 Room Air 09/28/24 18:35 Room Air 09/28/24 17:00 Room Air 09/28/24 16:00 99.2 F 82 18 135/86 97 Room Air 09/28/24 15:00 Room Air 09/28/24 13:00 Room Air Intake and Output 09/28/24 09/29/24 09/29/24 23:59 07:59 15:59 Intake Total 120 / 830 Output Total 1000 / 1300 300 / 300 Balance -880 / -470 -300 / -300 Intake: Intake, Oral Amount 120 / 830 Output: Output, Urine Amount 1000 / 1300 300 / 300 Other: Number of Unmeasured Voids 0 Weight 95.39 kg Patient Weight 09/29/24 23:59 Weight 95.39 kg Laboratory Results - last 24 hr 09/28/24 06:30: Urine Color Yellow, Urine Appearance Clear, Urine pH 6.0, Ur Specific [place] 1.015, Urine Protein Negative, Urine Glucose (UA) Negative, Urine Ketones 1+, Urine Blood Trace-i, Urine Nitrate Positive A, Urine Bilirubin Negative, Urine Urobilinogen 1.0, Ur Leukocyte Esterase Trace, Urine RBC Occasional, Urine WBC Occasional, Ur Squamous Epith Cells 3-5, Urine Bacteria 1+ 09/28/24 07:20: NT-Pro-B Natriuret Pep 1100 H 09/29/24 06:55: WBC 5.8 D, RBC 3.76 L, Hgb 11.6 L, Hct 34.4 L, MCV 91.5, MCH 30.9, MCHC 33.7, RDW 13.0, Plt Count 180, MPV 10.1, Neut % (Auto) 66.4, Lymph % (Auto) 20.8, [place] % (Auto) 7.8, Eos % (Auto) 4.3, Baso % (Auto) 0.5, Neut # (Auto) 3.8, Lymph # (Auto) 1.2, [place] # (Auto) 0.5, Eos # (Auto) 0.3, Baso # (Auto) 0.0, Sodium 139, Potassium 3.1 L, Chloride 100, Carbon Dioxide 28, Anion Gap 14.1, BUN 23 H, Creatinine 0.90, Estimated Creat Clear 75, Estimated GFR 61, Est GFR ( Amer) 74, Glucose 89, Calcium 8.7, Phosphorus 3.3, Magnesium 1.9, Total Bilirubin 0.7, AST 46 H, ALT 23, Alkaline Phosphatase 80, Total Protein 6.4, Albumin 3.7 D, Globulin 2.7, Albumin/Globulin Ratio 1.4 I & O for Labs for Last 24 Hours: Intake & Output 09/26/24 09/27/24 09/28/24 09/29/24 23:59 23:59 23:59 23:59 Intake Total 830 / 830 Output Total 1300 / 1300 300 / 300 Balance -470 / -470 -300 / -300 Weight 142.882 kg 98.566 kg 95.39 kg Microbiology Reports for the Last 24 Hours: Microbiology 09/28/24 06:30 Urine,Clean Catch Urine Culture - Preliminary Gram Negative Rods 09/27/24 21:20 Blood Blood Culture - Preliminary NO GROWTH AFTER 24 HOURS 09/27/24 21:31 Blood Blood Culture - Preliminary NO GROWTH AFTER 24 HOURS Constitutional: Present no acute distress, obese, chronically ill appearing and cooperative Head: Present atraumatic ENT: Present normal exam Respiratory: Present normal respiratory effort; Absent rhonchi, wheezes or crackles Cardiac: Present Reg Rate and Rhythm GI: Present soft and normal bowel sounds; Absent distention or tenderness Extremities: Present normal inspection, full ROM and edema (2+ to knee and left leg, 1+ right leg) Skin: Present intact; Absent erythema Neuro: Present Grossly Intact, alert, awake and moves all extremities Comment:: Oriented to self only. Does not know where she is or why. Pleasant. Cooperative. Answers questions appropriately. Appears mildly anxious Assessment and Plan *Assessment and plan (1) Declining functional status: Status: Acute Category: Medical Code(s): R53.81 - Other malaise (2) Fall at home: Status: Acute Qualifiers: Encounter type: initial encounter Qualified Code(s): W19.XXXA - Unspecified fall, initial encounter; Y92.009 - Unspecified place in unspecified non-institutional (private) residence as the place of occurrence of the external cause Category: Medical Code(s): W19.XXXA - Unspecified fall, initial encounter; Y92.009 - Unspecified place in unspecified non-institutional (private) residence as the place of occurrence of the external cause (3) Adult failure to thrive: Status: Acute Category: Medical Code(s): R62.7 - Adult failure to thrive (4) Dementia: Status: Acute Category: Medical Code(s): F03.90 - Unspecified dementia, unspecified severity, without behavioral disturbance, psychotic disturbance, mood disturbance, and anxiety (5) UTI (urinary tract infection): Status: Acute Category: Medical Code(s): N39.0 - Urinary tract infection, site not specified (6) Rhabdomyolysis: Status: Acute Category: Medical Code(s): M62.82 - Rhabdomyolysis (7) NSTEMI (non-ST elevated myocardial infarction): Problem Comment: type 2 Status: Acute Category: Medical Code(s): I21.4 - Non-ST elevation (NSTEMI) myocardial infarction Plan Patient is a 73-year-old female with past medical history of dementia obesity who presents to the hospital due to change in mental status, generalized weakness, frequent falls at home. Patient is unable to provide history at time of my evaluation, most of the history is from patient's chart, reportedly patient lives by herself, daughter checks on her almost every day. Patient was found confused and was sent to the emergency department for further evaluation. On further evaluation patient was found to have sepsis, confused. Patient was admitted for further management. According to the family patient has been having significant decline over the past 2 weeks and they are interested in patient getting to [facility]. According to family patient has been having frequent falls at home. Continues to require inpatient management. Problems addressed as follows: Frequent falls Rhabdomyolysis NSTEMI - Falling at home. Workup in the ED negative for acute intracranial process or trauma. No fractures on x-rays of foot or ankle. - CK elevated at 543. Troponin elevated from 0.02-0.05. No ischemic changes on EKG - White count normal today at 5.8. Hemoglobin 11.6. Kidney function normal with BUN 23, creatinine 0.9. Phosphorus 3.3 and magnesium 1.9. - Repeat CBC, CMP, magnesium ordered for the morning - NSTEMI consistent with type II from stress of falls and acute illness. Cardiology consulted to evaluate the -Responded well to Lasix yesterday, administer 40 mg p.o. daily starting today. Echo ordered and pending for the morning to evaluate for CHF given her lower extremity edema - BNP obtained, elevated 1100 on admission, on RA - Repeat CBC, CMP, magnesium ordered for the UTI: Urinalysis abnormal, positive for bacteria, nitrate, trace leuk esterase. Urine culture growing gram-negative rods greater than 100,000 CFU's. Continue on ceftriaxone 1 g daily pending speciation and sensitivity History of dementia Acute encephalopathy Depression - Confusion multifactorial. Suspect secondary to infection, consistent with toxic encephalopathy - Monitor for improvement with treatment of UTI - Continue home meds for dementia and including memantine 10 mg twice daily, Lexapro 20 mg nightly, donepezil 5 mg nightly, Wellbutrin 150 mg daily Therapy consulted to evaluate patient for possible placement DNI Regular diet DVT prophylaxis-subcutaneous heparin
[2024-09-29] MEDS: FUROSEMIDE 40 MG TABLET PO (14:16)
[2024-09-29 16:00] VITALS: BP 107/81; PULSE 79; RESP 18; TEMP 36.9; O2SAT 95
[2024-09-29 20:00] VITALS: BP 98/56; PULSE 91; RESP 16; TEMP 36.6; O2SAT 96
[2024-09-29] MEDS: ESCITALOPRAM 20MG TABLET 20 MG PO (20:45)
[2024-09-29] MEDS: PANTOPRAZOLE 40MG TABLET 40 MG PO (20:45)
[2024-09-29] MEDS: POTASSIUM CHLORIDE 20MEQ TAB 40 MEQ PO ×2 (20:45→23:46)
[2024-09-30] MEDS: ONDANSETRON 4MG/2ML VIAL 4 MG IV (01:43)
[2024-09-30] MEDS: POTASSIUM CHLORIDE 20MEQ TAB 40 MEQ PO (03:59)
[2024-09-30 04:00] VITALS: BP 118/76; PULSE 73; RESP 14; TEMP 36.4; O2SAT 94; BMI 36.3
--- NOTE | 2024-09-30 04:08 | PC.NURSE ---
Pt initially A&O x3 (Self, Place, and Year), confusion progressed throughout shift. Pt is on RA. Pt does have BLE +1 pitting edema. Pt c/o nausea, pt medicated per MAY. Pt's potassium was replaced per electrolyte replacement protocol. No significant changes noted. Pt not voicing any further concerns. Pt resting with call light in reach. Plan of care ongoing.
[2024-09-30 06:18] LABS: Hematocrit 34.5 % (37.0-47.0); Hemoglobin 11.6 g/dL (12.2-16.2); Immature Granulocytes % 0.4 %; Mean Corpuscular HGB Conc 33.6 g/dL (31.8-35.4); Mean Corpuscular Hemoglobin 30.6 pg (27.0-31.2); Mean Corpuscular Volume 91.0 fl (81-99); Nucleated Red Blood Cells % 0 %; Platelet Count 207 K/mm3 (142-424); Red Blood Count 3.79 M/mm3 (4.20-5.40); Red Cell Distribution Width-SD 42.7 fL; White Blood Count 5.5 K/mm3 (4.8-10.8)
[2024-09-30 06:30] LABS: Alanine Aminotransferase 23 U/L (12-78); Albumin Level 3.8 g/dl (3.5-5.0); Albumin/Globulin Ratio 1.4 (1.1-1.8); Alkaline Phosphatase 82 U/L (38-126); Anion Gap 14.3 mEq/L (5-15); Aspartate Amino Transferase 39 U/L (14-36); Bilirubin,Total 0.6 mg/dl (0.2-1.3); Blood Urea Nitrogen 20 mg/dl (7-17); Calcium 8.8 mg/dl (8.4-10.2); Carbon Dioxide 30 mmol/L (22.0-30.0); Chloride 98 mmol/L (98-107); Creatinine Clearance Estimated 76 mL/min (50-200); Creatinine,Serum 1.00 mg/dl (0.52-1.04); Estimated Glomerular Filt Rate 54 ml/min (>60); GFR (African American) 66 ML/MIN (>60); Globulin 2.8 g/dL (1.3-3.2); Glucose 96 mg/dl (74-100); Potassium 4.3 mmoL/L (3.5-5.1); Sodium 138 mmol/L (136-145); Total Protein,Serum 6.6 g/dl (6.3-8.2)
--- NOTE | 2024-09-30 06:57 | EXP.POD.CONS ---
Documented by User: Bruna Antonieta Sanchez APRN 09/30/24 08:12 History of Present Illness *Admission Date: 09/27/24 *History of present illness: Patient is a 73-year-old female with past medical history of dementia obesity who presents to the hospital due to change in mental status, generalized weakness, frequent falls at home. Patient is unable to provide history at time of my evaluation, most of the history is from patient's chart, reportedly patient lives by herself, daughter checks on her almost every day. Patient was found confused and was sent to the emergency department for further evaluation. On further evaluation patient was found to have sepsis, confused. Patient was admitted for further management. According to the family patient has been having significant decline over the past 2 weeks and they are interested in patient getting to retirement. According to family patient has been having frequent falls at home. 09/30/24- Podiatry Consult for Foot/Nail Care, Patient last seen by Podiatry on 01/16/24 for nail care and callus care. [facility] Disclaimer: The information contained in this section may have been updated after the patient was seen, as this information can be updated by other users. Medical History Dementia Osteoarthritis History of gastroesophageal reflux (GERD) History of cataract History of anemia Prolapsed bladder Surgical History H/O: hysterectomy History of cholecystectomy History of left knee replacement History of right hip replacement Hx of tonsillectomy Family History Mother Cancer Father Cancer Social History Smoking Status: Never smoker alcohol intake: never current occupational status: retired Travel in the last 8 weeks?: None Have you lived/traveled outside US in past 30 days?: No Contact w/someone who lives/traveled outside US past 30 days?: No Exposure to someone with infectious disease in past 14 days?: No Do you have a fever (greater than 100.4 F or 38 C)?: No Have you tested positive for COVID-19?: No Exposed to someone with COVID-19 in past 14 days?: No Do you have a sore throat?: No Do you have a cough?: No Do you have any weakness?: No Are you experiencing any nausea/vomitting?: No Do you have any diarrhea?: No Are you experiencing any unusual bleeding?: No Do you have any muscle aches/pain?: No Do you have any abdominal pain?: No Are you experiencing loss of taste or smell?: No Meds Home Medications and Allergies Home Medications ?Medication ?Instructions ?Recorded ?Confirmed ?Type ascorbic acid (vitamin C) 500 mg 500 mg PO DAILY 05/25/22 09/28/24 History tablet,extended release cholecalciferol (vitamin D3) 125 125 mcg PO DAILY 05/25/22 09/28/24 History mcg (5,000 unit) capsule simvastatin 20 mg tablet 20 mg PO HS 05/25/22 09/28/24 History donepezil 5 mg tablet 5 mg PO HS 07/31/23 09/28/24 History escitalopram oxalate 20 mg tablet 20 mg PO HS 07/31/23 09/28/24 History memantine 10 mg tablet 10 mg PO BID 07/31/23 09/28/24 History pantoprazole 40 mg tablet,delayed 40 mg PO BID 10/17/23 09/28/24 History release bupropion HCl 150 mg 24 hr tablet, 150 mg PO DAILY 09/28/24 09/28/24 History extended release lisinopril 20 mg tablet 20 mg PO HS 09/28/24 09/28/24 History New Prescriptions to Start Prescriptions: Allergies Allergy/AdvReac Type Severity Reaction Status Date / Time morphine (MORPHINE) Allergy Unknown HIVES/FEVER Verified 01/16/24 15:14 Penicillins (PENICILLINS) Allergy Unknown I-RASH Verified 01/16/24 15:14 Sulfa (Sulfonamide Allergy Unknown I-RASH Verified 01/16/24 15:14 Antibiotics) (SULFA (SULFONAMIDE ANTIBIOTICS)) Exam (Inpt) Vital signs and Labs for Last 24 Hours: Temp Pulse Resp BP Pulse Ox O2 Del Method 97.6 F 73 14 118/76 94 L Room Air 09/30/24 04:00 09/30/24 04:00 09/30/24 04:00 09/30/24 04:00 09/30/24 04:00 09/30/24 06:41 Laboratory Results - last 24 hr 09/29/24 06:55: WBC 5.8 D, RBC 3.76 L, Hgb 11.6 L, Hct 34.4 L, MCV 91.5, MCH 30.9, MCHC 33.7, RDW 13.0, Plt Count 180, MPV 10.1, Neut % (Auto) 66.4, Lymph % (Auto) 20.8, [place] % (Auto) 7.8, Eos % (Auto) 4.3, Baso % (Auto) 0.5, Neut # (Auto) 3.8, Lymph # (Auto) 1.2, [place] # (Auto) 0.5, Eos # (Auto) 0.3, Baso # (Auto) 0.0, Sodium 139, Potassium 3.1 L, Chloride 100, Carbon Dioxide 28, Anion Gap 14.1, BUN 23 H, Creatinine 0.90, Estimated Creat Clear 75, Estimated GFR 61, Est GFR ( Amer) 74, Glucose 89, Calcium 8.7, Phosphorus 3.3, Magnesium 1.9, Total Bilirubin 0.7, AST 46 H, ALT 23, Alkaline Phosphatase 80, Total Protein 6.4, Albumin 3.7 D, Globulin 2.7, Albumin/Globulin Ratio 1.4 09/30/24 05:20: WBC 5.5, RBC 3.79 L, Hgb 11.6 L, Hct 34.5 L, MCV 91.0, MCH 30.6, MCHC 33.6, RDW 12.8, Plt Count 207, MPV 10.4, Neut % (Auto) 59.3, Lymph % (Auto) 23.3, [place] % (Auto) 9.6 H, Eos % (Auto) 6.9, Baso % (Auto) 0.5, Neut # (Auto) 3.3, Lymph # (Auto) 1.3, [place] # (Auto) 0.5, Eos # (Auto) 0.4, Baso # (Auto) 0.0, Sodium 138, Potassium 4.3 D, Chloride 98, Carbon Dioxide 30, Anion Gap 14.3, BUN 20 H, Creatinine 1.00, Estimated Creat Clear 76, Estimated GFR 54 L, Est GFR ( Amer) 66, Glucose 96, Calcium 8.8, Total Bilirubin 0.6, AST 39 H, ALT 23, Alkaline Phosphatase 82, Total Protein 6.6, Albumin 3.8, Globulin 2.8, Albumin/Globulin Ratio 1.4 I & O for Labs for Last 24 Hours: Intake & Output 09/27/24 09/28/24 09/29/24 09/30/24 23:59 23:59 23:59 23:59 Intake Total 830 / 830 600 / 600 Output Total 1300 / 1300 2800 / 2800 Balance -470 / -470 -2200 / -2200 Weight 315 lb 217 lb 4.8 oz 210 lb 4.8 oz 212 lb 11.2 oz Microbiology Reports for the Last 24 Hours: Microbiology 09/27/24 21:31 Blood Blood Culture - Preliminary NO GROWTH AFTER 48 HOURS 09/27/24 21:20 Blood Blood Culture - Preliminary NO GROWTH AFTER 48 HOURS 09/28/24 06:30 Urine,Clean Catch Urine Culture - Preliminary Gram Negative Rods Feet Bottom:  1. Left sub 5th met pre-ulcerative callus. Results Labs 09/30/24 05:20 09/30/24 05:20 Labs: Abnormal lab results 09/29/24 09/30/24 Range/Units 06:55 05:20 RBC 3.76 L 3.79 L (4.20-5.40) M/mm3 Hgb 11.6 L 11.6 L (12.2-16.2) g/dL Hct 34.4 L 34.5 L (37.0-47.0) % [place] % (Auto) 9.6 H (1.7-9.3) % Potassium 3.1 L (3.5-5.1) mmoL/L BUN 23 H 20 H (7-17) mg/dl Estimated GFR 54 L (>60) ml/min AST 46 H 39 H (14-36) U/L H & H 09/27/24 09/28/24 09/29/24 Range/Units 22:25 05:34 06:55 Hgb 11.4 L 11.7 L 11.6 L (12.2-16.2) g/dL Hct 33.8 L 34.8 L 34.4 L (37.0-47.0) % 09/30/24 Range/Units 05:20 Hgb 11.6 L (12.2-16.2) g/dL Hct 34.5 L (37.0-47.0) % Coagulation 09/27/24 Range/Units 22:25 INR 1.08 (0.9-1.1) All other labs normal. Assessment and Plan *Assessment and plan (1) Pressure ulcer of left foot: Status: Acute Qualifiers: Pressure injury stage: stage 3 Qualified Code(s): L89.893 - Pressure ulcer of other site, stage 3 Category: Medical Code(s): L89.899 - Pressure ulcer of other site, unspecified stage (2) Cellulitis of left foot: Status: Acute Category: Medical Code(s): L03.116 - Cellulitis of left lower limb (3) Pre-ulcerative calluses: Status: Acute Category: Medical Code(s): L84 - Corns and callosities (4) Bursitis of left foot: Status: Acute Category: Medical Code(s): M77.52 - Other enthesopathy of left foot and ankle (5) Hammertoes of both feet: Status: Acute Category: Medical Code(s): M20.41 - Other hammer toe(s) (acquired), right foot; M20.42 - Other hammer toe(s) (acquired), left foot (6) Onychodystrophy: Status: Acute Category: Medical Code(s): L60.3 - Nail dystrophy (7) Arthritis of both feet: Status: Acute Category: Medical Code(s): M19.071 - Primary osteoarthritis, right ankle and foot; M19.072 - Primary osteoarthritis, left ankle and foot (8) Acquired hallux valgus of both feet: Status: Acute Category: Medical Code(s): M20.11 - Hallux valgus (acquired), right foot; M20.12 - Hallux valgus (acquired), left foot Documented by User: Magdalena Brian DPM 09/30/24 13:14 [facility] Medical History Dementia Osteoarthritis History of gastroesophageal reflux (GERD) History of cataract History of anemia Prolapsed bladder Surgical History H/O: hysterectomy History of cholecystectomy History of left knee replacement History of right hip replacement Hx of tonsillectomy Family History Mother Cancer Father Cancer Social History Smoking Status: Never smoker alcohol intake: never current occupational status: retired Travel in the last 8 weeks?: None Have you lived/traveled outside US in past 30 days?: No Contact w/someone who lives/traveled outside US past 30 days?: No Exposure to someone with infectious disease in past 14 days?: No Do you have a fever (greater than 100.4 F or 38 C)?: No Have you tested positive for COVID-19?: No Exposed to someone with COVID-19 in past 14 days?: No Do you have a sore throat?: No Do you have a cough?: No Do you have any weakness?: No Are you experiencing any nausea/vomitting?: No Do you have any diarrhea?: No Are you experiencing any unusual bleeding?: No Do you have any muscle aches/pain?: No Do you have any abdominal pain?: No Are you experiencing loss of taste or smell?: No Meds Home Medications and Allergies Home Medications ?Medication ?Instructions ?Recorded ?Confirmed ?Type ascorbic acid (vitamin C) 500 mg 500 mg PO DAILY 05/25/22 09/28/24 History tablet,extended release cholecalciferol (vitamin D3) 125 125 mcg PO DAILY 05/25/22 09/28/24 History mcg (5,000 unit) capsule simvastatin 20 mg tablet 20 mg PO HS 05/25/22 09/28/24 History donepezil 5 mg tablet 5 mg PO HS 07/31/23 09/28/24 History escitalopram oxalate 20 mg tablet 20 mg PO HS 07/31/23 09/28/24 History memantine 10 mg tablet 10 mg PO BID 07/31/23 09/28/24 History pantoprazole 40 mg tablet,delayed 40 mg PO BID 10/17/23 09/28/24 History release bupropion HCl 150 mg 24 hr tablet, 150 mg PO DAILY 09/28/24 09/28/24 History extended release lisinopril 20 mg tablet 20 mg PO HS 09/28/24 09/28/24 History New Prescriptions to Start Prescriptions: Allergies Allergy/AdvReac Type Severity Reaction Status Date / Time morphine (MORPHINE) Allergy Unknown HIVES/FEVER Verified 01/16/24 15:14 Penicillins (PENICILLINS) Allergy Unknown I-RASH Verified 01/16/24 15:14 Sulfa (Sulfonamide Allergy Unknown I-RASH Verified 01/16/24 15:14 Antibiotics) (SULFA (SULFONAMIDE ANTIBIOTICS)) Exam (Inpt) Constitutional: Present no acute distress and obese Head: Present normocephalic Neck: Present normal inspection Respiratory: Present normal respiratory effort Cardiac: Present posterior tibial pulses present and pedal pulses present GI: Present soft Rectal (female): Present deferred (female): Present deferred Extremities: Present tenderness and edema (left sub 5th met) Comment:: Minimal callus to right 2nd toe. Callus x1 debrided. No underlying ulcer noted. Pre-ulcerative callus noted to left sub 5th metatarsal. Localized edema, mild erythema with pain on palpation. Sharp debridement full thickness w/ 15' blade thru callus/skin shows underlying pressure ulcer. Some blistery like yellow-tinged serous drainage noted. Wound culture taken. Sharp excisional debridement full-thickness through skin into/including subcutaneous tissue. Post debridement: 50% granular, 50% yellow fibrotic tissue, 2.5 x 1.5 x 0.4 cm. Neuro: Present Motor Function Intact, oriented x 3 and moves all extremities Ankle: bilateral: normal inspection and bilateral: swelling (mild b/l LE LE) Feet/Toes: left: swelling (L sub 5th met), left: tenderness (L sub 5th met) and left: wound (L sub 5th met pressure ulcer) and bilateral: normal inspection, bilateral: bunion, bilateral: deformity (cross over toe deformity), bilateral: hammer toe, bilateral: nail abnormalities and bilateral: onychomycosis Feet Bottom:  1. Left sub 5th met pre-ulcerative callus. Comments:: Hammertoes B/L 2nd -5th, rotated internally in varus 3,4,5 B/L. Dislocating right 2nd toe at MPJ level, rigid HT at PIPJ. Right 3-4th toes cross under the 2nd toe. Tailor's bunionette B/L, left side most severe. Left HAV severe. B/L Flatfeet. Prominent plantar 4th and 5th metatarsal heads on left foot, resultant deep painful sheer calluses. L 5th met bursitis noted. Inspection: Present foot deformity deformity: Present bunion, hallux valgus, hammer toes, pes planus and deformed toes, nail disorder, calluses/corns, infection and ulceration Pulses: L dorsalis pedis pulse: normal, R dorsalis pedis pulse: normal, L posterior tibial pulse: normal and R posterior tibial pulse: normal CFT: normal: CFT Results Labs 09/30/24 05:20 09/30/24 05:20 Diagnostic results Ankle/Foot x-ray: pending (09/30/24: pending left foot reviewed: no OM), report reviewed (01/16/24: b/l foot 3v reviewed) and image reviewed Assessment and Plan *Assessment and plan (1) Pressure ulcer of left foot: Status: Acute Qualifiers: Pressure injury stage: stage 3 Qualified Code(s): L89.893 - Pressure ulcer of other site, stage 3 Category: Medical Code(s): L89.899 - Pressure ulcer of other site, unspecified stage (2) Cellulitis of left foot: Status: Acute Category: Medical Code(s): L03.116 - Cellulitis of left lower limb (3) Pre-ulcerative calluses: Status: Acute Category: Medical Code(s): L84 - Corns and callosities (4) Bursitis of left foot: Status: Acute Category: Medical Code(s): M77.52 - Other enthesopathy of left foot and ankle (5) Hammertoes of both feet: Status: Acute Category: Medical Code(s): M20.41 - Other hammer toe(s) (acquired), right foot; M20.42 - Other hammer toe(s) (acquired), left foot (6) Onychodystrophy: Status: Acute Category: Medical Code(s): L60.3 - Nail dystrophy (7) Arthritis of both feet: Status: Acute Category: Medical Code(s): M19.071 - Primary osteoarthritis, right ankle and foot; M19.072 - Primary osteoarthritis, left ankle and foot (8) Acquired hallux valgus of both feet: Status: Acute Category: Medical Code(s): M20.11 - Hallux valgus (acquired), right foot; M20.12 - Hallux valgus (acquired), left foot Plan Imagin01/16/24, 3v left ankle reviewed. FINDINGS: Bones/joints: Old avulsion fracture off the medial malleolus. Degenerative changes in the medial and lateral malleolus. There is no evidence of acute fracture.There is no evidence of malalignment or dislocation. Bi malleolar soft tissue swelling Soft tissues: See Bones/joints finding. IMPRESSION: There is no evidence of acute fracture.There is no evidence of malalignment or dislocation. 3v left foot FINDINGS: Bones/joints: Significant hallux valgus deformity of the great toe. Degenerative changes in the tarsometatarsal joints especially the 1st tarsometatarsal joint. Degenerative changes in the 1st metatarsophalangeal joint and IP joint and tarsal bones. There is no evidence of acute fracture.There is no evidence of malalignment or dislocation. Soft tissues: Normal. IMPRESSION: 1. Significant hallux valgus deformity of the great toe. 2. Degenerative changes in the tarsometatarsal joints especially the 1st tarsometatarsal joint. Degenerative changes in the 1st metatarsophalangeal joint and IP joint and tarsal bones. 3. There is no evidence of acute fracture.There is no evidence of malalignment or dislocation. 09/30/24, 3v left foot reviewed. CLINICAL HISTORY: Left bursa, pressure ulcer. COMPARISON: 07/31/2023. FINDINGS: LEFT FOOT Three views demonstrate no acute fracture or dislocation. There is a bandage and skin dressing overlying the distal fifth metatarsal. On the lateral view, there is a moderate plantar spur. There is a hallux valgus deformity with moderate hypertrophic changes of the first MTP. There are marked hypertrophic changes at the first tarsometatarsal joint. No definite bony erosion is evident. IMPRESSION: No definite bony erosion is identified. Degenerative changes without acute bony abnormality. Reviewed, Interpreted and Dictated by Leander Stubbs MD. Transcribed by Kirti Zamora. Labs: 09/27/24: wbc 8.3, cr 1.0, gfr 54, glucose 127, albumin 4.3, total CK 543H 09/30/24: wbc 5.5, esr 22, crp 31.0H, cr 1.0, gfr 54, glucose 96, albumin 3.8 Specimens: 09/30/24: Left sub 5th met ulcer WCx: pending 09/30/24, Podiatry Consult: -Admitted for CP. Presents with painful pre-ulcerative calluses and elongated toenails. -NAIL CARE: last on 07/31/23, 10/17/23, 01/16/24 -Discussed with the patient the importance of keeping the toenails well managed to avoid sore/ulcers which can result from the nails digging into the skin. -The patient can not bend over and has difficulty to cut the nails. -Indications: 10 painful, dystrophic irregular toenails in length and thickness. -Nails x10 debrided with nail nippers. Patient appeared to tolerate procedure well without complication. -CALLUS CARE: last on 08/22/23, 09/12/23, 10/17/23, 01/16/24 -R 2nd toe debrided thru skin only, no underlying ulcer noted. -L sub 5th met callus had underlying pressure ulcer noted. Sharp excisional full thickness debrided thur skin, subq. WCx taken. -Betadine paint to ulcer. Betadine gauze, DSD applied. -X-rays 3v left foot to rule out 5th met osteomyelitis. I dependently reviewed the x-ray imaging and no cortical erosions or changes to the fifth metatarsal head under the ulcer site. Arthritis, bunions and hammertoe deformities noted/ -Check esr, crp. -Rec broad spectrum antibiotics until WCx results. -X-rays and labs not consistent with underlying osteomyelitis. Diagnosis: cellulitis/inflamed 5th MTPJ bursa with pressure ulcer. No plans for surgical intervention at this time. Will monitor and reevaluate tomorrow. -Plan for Podiatry dressing change in am.
--- NOTE | 2024-09-30 07:00 | CA_ITS ---
APPROVED REPORT EXAM: Comprehensive 2D, Doppler, and color-flow Echocardiogram Tool Grinder Operator External: Elsa Saha CRT Ht: 5 ft 4 in Wt: 217lbs BSA: 2.03 BP: 116/58 mmHg Indications: Congestive Heart Failure 2D Dimensions EF AP2 66.2 % GL Strain -17.8 % M-Mode Dimensions RVDd 1.47 cm (0.9-2.6) LA Diam 2.80 cm (1.9-4.0) LVDd 3.59 cm (3.5-5.7) LVDs 2.41 cm (3.5-5.7) IVSd 1.47 cm (0.6-1.1) PWd 0.64 cm (0.6-1.1) EF (Teich) 62.30% FS 32.90% EDV (Teich) 54.10 mL TAPSE 2.13 (<1.7) ESV (Teich) 20.40 mL LV Diastology E Decel Time 163 (160-240 msec) E/A Ratio 0.69 MED A' 11.10 cm/s LAT A' 13.70 cm/s Aortic Valve KAIT Index 1.14 cm2/m2 AoV Peak Brandon. 206.0 (50-130 cm/s) AO Peak GR. 17.00 mmHg AO Mean GR. 10.60 (<5 mmHg) AO VTI 33.6 (18-25 cm) KAIT (VTI) 2.37 (2.5-4.5 cm2) Mitral Valve MV E Max Brandon. 68.0 (40-130 cm/s) MV A Velocity 98.0 (40-130 cm/s) E/A Ratio 0.69 MV PHT 48.0 ms Tricuspid Valve TR P. Velocity 150.00 cm/s RAP Estimate 10.00 mmHg RVSP 19.00 mmHg Left Ventricle The left ventricle is normal size. The left ventricular systolic function is normal. The left ventricular ejection fraction is within the normal range. There is increased elbow thickness. Regional wall motion is difficult to evaluate in the setting of technically difficult study. Distal septal LV wall appears mildly hypokinetic. Transmitral Doppler flow pattern suggests impaired LV relaxation. LVEF is 55%. Right Ventricle The right ventricle is not well-visualized, but grossly appears normal in size and function. Atria The left atrium size is normal. The right atrium size is normal. There is no Doppler evidence of interatrial shunt. Aortic Valve The aortic valve is mildly thickened. Mild aortic regurgitation. Aortic sclerosis, but no evidence of hemodynamically significant aortic stenosis. Mitral Valve The mitral valve leaflets are mildly thickened. No evidence of mitral valve stenosis. There is no mitral valve regurgitation noted. Tricuspid Valve Tricuspid valve is grossly normal in structure and function. Trace tricuspid regurgitation. There is insufficient TR jet to estimate RVSP. Pulmonic Valve The pulmonic valve is not well-visualized. Great Vessels The aortic root is normal in size. IVC is normal in size and collapses >50% with inspiration. Pericardium There is no pericardial effusion. Other Information Study Quality: Technically Difficult Conclusion Technically difficult study due to poor acoustic windows. Normal biventricular systolic function. Distal septal LV wall appears mildly hypokinetic. Mild AI. Electronically signed by : Tiffany Downs MD 09/30/2024 11:44:49
--- NOTE | 2024-09-30 07:58 | XR_ITS ---
FINAL REPORT CLINICAL HISTORY: Left bursa, pressure ulcer COMPARISON: 07/31/2023 FINDINGS: LEFT FOOT Three views demonstrate no acute fracture or dislocation. There is a bandage and skin dressing overlying the distal fifth metatarsal. On the lateral view, there is a moderate plantar spur. There is a hallux valgus deformity with moderate hypertrophic changes of the first MTP. There are marked hypertrophic changes at the first tarsometatarsal joint. No definite bony erosion is evident. IMPRESSION: No definite bony erosion is identified. Degenerative changes without acute bony abnormality. Reviewed, Interpreted and Dictated by Leander Stubbs MD Transcribed by Kirti Zamora Authenticated and [facility]
[2024-09-30 08:00] VITALS: BP 105/53; PULSE 60; RESP 18; TEMP 36.9; O2SAT 96
[2024-09-30 08:20] VITALS: O2SAT 96
[2024-09-30] MEDS: MEMANTINE 10MG TABLET 10 MG PO ×2 (08:35→21:08)
[2024-09-30] MEDS: FUROSEMIDE 40 MG TABLET PO (08:35)
[2024-09-30] MEDS: HEPARIN SODIUM 5,000 UNIT/ML VIAL 5000 UNIT SUBCUT ×2 (08:35→21:08)
[2024-09-30 08:48] LABS: C-Reactive Protein 31.0 mg/L (0-4)
--- NOTE | 2024-09-30 09:25 | HMH.OTEV ---
OT Inpatient Evaluation Rehab OT IP Evaluation Start: 09/28/24 06:02 Freq: ONCE Status: Active Protocol: Document 09/30/24 09:17 SHABNAM (Rec: 09/30/24 09:24 SHABNAM [id number]) Rehab OT IP Assessment Subjective History Per HPI narrative: patient is a 73-year-old female PMHx obesity, dementia brought in to ED via EMS for being found down and altered. EMS reported that family advised patient has dementia at baseline but is very altered right now. Subjective I don't like getting old. Pt was supine in bed when therapy entered. pt agreed to participate in initial OT eval this morning. Pt orient x2. pt reports they live alone but live across street from family. pt reports they live in SS home with basement and reports they rarely go down 10 steps with HR to basement. pt reports they have 4 steps to enter home with HR. pt reports they are ind in ADLs and have some assist with IADLs. pt reports they have a cane for functional mobility. pt reports they do not drive and their grandson assists. pt reports they had a bad fall. pt presents with confusion and difficulty with word finding. Pt agreed to sit on EOB as pt was just administered antibiotic from nursing. Pt went from supine to EOB with Min A x1. pt able to tolerate sitting at EOB with CGA for aprox 1 minute. pt reported they wanted to stay in bed and eat. Pt went from EOB to supine with Min A x1. Pt left supine in bed with call light and all other needs within reach. Objective Patient Orientation Person,Birthday Right Upper WFL Extremity Gross ROM Left Upper Extremity WFL Gross ROM Shoulder ROM Muscle Weakness Limitations Elbow ROM Muscle Weakness Limitations Bed Mobility bed mobility-scooting,bed mobility - supine/sit Assist Level Minimal x 1 (25% assist) Decrease in Yes Endurance Rehab OT IP prob,goals,plan Problems Date of Evaluation: 09/30/24 OT IP Problems Bed Mobility,Transfers,Balance,Self care,Safety Rehab Potential Rehab Potential Good Equipment Needs Assistive Devices Straight Cane,Rolling / Wheeled Walker Plan OT intervention Plan Bed Mobility,Transfers,Balance,Self care,Safety, Therapeutic Exercise OT Plan Frequency Daily Duration LOS Discharge Goals Bed Mobility Ability Standby Assistance Sit to Stand Chair Contact Guard/Hand Hold Transfer Ability Chair Transfer Contact Guard/Hand Hold Ability Chair Transfer Sit to/from Ambulatory Technique Chair Transfer Standard Walker,Straight Cane,Rolling Walker Assistive Devices Feeding Ability Assist with Tray Set Up Commode/Toilet Raised Toilet Seat,Grab Bars Transfer Assistive Devices Decrease in No Endurance Discharge Plan OT Discharge Plan At this time, Pt is currently most appropriate for rehab placement once medically stable for d/c for skilled OT services and interventions to address functional limitations in occupational performance. Skilled acute inpatient occupational therapy is appropriate to improve functional occupational performance. Eval Complexity Eval Charge Codes 67559 - Moderate Complexity PHYSICIAN CERTIFICATION: I certify the specified therapy services for Taty Luz are required, authorized, and reviewed every 30 days.
--- NOTE | 2024-09-30 10:00 | EXP.CARD.CON ---
History of Present Illness History of Present Illness Consult date: 09/30/24 Requesting physician: Sam Oates Chief complaint: AMS, weakness History of present illness: 73-year-old white female without known cardiovascular disease new to us this admission. She has a history of dementia and obesity. She apparently lives alone and family had been noting a declining in her status for several weeks with weakness and falls. They have admission she was found confused by her daughter and patient was transported to the emergency room. Workup revealed urinary tract infection and rhabdomyolysis. Family wants SNF. We have been consulted for mild bump in troponin from 0.02-0.05. On my evaluation there is no family currently at bedside. She is a poor historian but able to answer most questions and participate in visit. Patient denies anginal symptoms to me. Her EKG shows probable sinus rhythm at 96 bpm without ischemic changes. She has a 2D echo pending. She does have a noted 3/6 systolic ejection murmur on exam which she states she was unaware of previously. [facility] Disclaimer: The information contained in this section may have been updated after the patient was seen, as this information can be updated by other users. Medical History Dementia Osteoarthritis History of gastroesophageal reflux (GERD) History of cataract History of anemia Prolapsed bladder Surgical History H/O: hysterectomy History of cholecystectomy History of left knee replacement History of right hip replacement Hx of tonsillectomy Family History Mother Cancer Father Cancer Social History Smoking Status: Never smoker alcohol intake: never current occupational status: retired Travel in the last 8 weeks?: None Have you lived/traveled outside [place] in past 30 days?: No Contact w/someone who lives/traveled outside US past 30 days?: No Exposure to someone with infectious disease in past 14 days?: No Do you have a fever (greater than 100.4 F or 38 C)?: No Have you tested positive for COVID-19?: No Exposed to someone with COVID-19 in past 14 days?: No Do you have a sore throat?: No Do you have a cough?: No Do you have any weakness?: No Are you experiencing any nausea/vomitting?: No Do you have any diarrhea?: No Are you experiencing any unusual bleeding?: No Do you have any muscle aches/pain?: No Do you have any abdominal pain?: No Are you experiencing loss of taste or smell?: No Review of Systems Constitutional Constitutional: Denies fatigue and Denies weakness Eyes Eyes: Denies loss of vision ENT Ears, Nose, Mouth, and Throat: Denies hearing loss and Denies vertigo *Cardiovascular Cardiovascular: Denies chest pain, Denies dyspnea and Denies syncope *Respiratory Respiratory: Denies cough and Denies dyspnea *Gastrointestinal Gastrointestinal: Denies change in stool character, Denies nausea and Denies vomiting *Musculoskeletal Musculoskeletal: Denies muscle weakness Integumentary/Breasts Skin/Breast: Denies changing lesions *Neurologic Neurologic: Denies loss of vision, Denies syncope, Denies vertigo and Denies weakness Endocrine Endocrine: Denies fatigue Exam Data for Last 24 hours Vital signs and Labs for Last 24 Hours: Temp Pulse Resp BP Pulse Ox O2 Del Method 98.4 F 60 18 105/53 L 96 Room Air 09/30/24 08:00 09/30/24 08:00 09/30/24 08:00 09/30/24 08:00 09/30/24 08:20 09/30/24 08:20 Laboratory Results - last 24 hr 09/30/24 05:20: WBC 5.5, RBC 3.79 L, Hgb 11.6 L, Hct 34.5 L, MCV 91.0, MCH 30.6, MCHC 33.6, RDW 12.8, Plt Count 207, MPV 10.4, Neut % (Auto) 59.3, Lymph % (Auto) 23.3, [place] % (Auto) 9.6 H, Eos % (Auto) 6.9, Baso % (Auto) 0.5, Neut # (Auto) 3.3, Lymph # (Auto) 1.3, [place] # (Auto) 0.5, Eos # (Auto) 0.4, Baso # (Auto) 0.0, ESR 22, Sodium 138, Potassium 4.3 D, Chloride 98, Carbon Dioxide 30, Anion Gap 14.3, BUN 20 H, Creatinine 1.00, Estimated Creat Clear 76, Estimated GFR 54 L, Est GFR ( Amer) 66, Glucose 96, Calcium 8.8, Total Bilirubin 0.6, AST 39 H, ALT 23, Alkaline Phosphatase 82, C-Reactive Protein 31.0 H, Total Protein 6.6, Albumin 3.8, Globulin 2.8, Albumin/Globulin Ratio 1.4 I & O for Last 24 hours: Intake & Output 09/27/24 09/28/24 09/29/24 09/30/24 23:59 23:59 23:59 23:59 Intake Total 830 / 830 600 / 600 Output Total 1300 / 1300 2800 / 2800 Balance -470 / -470 -2200 / -2200 Weight 315 lb 217 lb 4.8 oz 210 lb 4.8 oz 212 lb 11.2 oz Microbiology Reports for the Last 24 Hours: Microbiology 09/30/24 08:08 Toe,Left Fifth Gram Stain - Final 09/28/24 06:30 Urine,Clean Catch Urine Culture - Final Escherichia coli 09/27/24 21:31 Blood Blood Culture - Preliminary NO GROWTH AFTER 48 HOURS 09/27/24 21:20 Blood Blood Culture - Preliminary NO GROWTH AFTER 48 HOURS Constitutional Constitutional: no acute distress and cooperative *Routine HEENT Exam Eye: Present PERRL *Routine Respiratory Exam Respiratory: Present CTA bilaterally; Absent accessory muscle use, wheezes or crackles *Routine Cardiovascular Exam Cardiovascular: Present RRR, Normal S1, Normal S2 and murmur (3/6 systolic ejection murmur); Absent gallop or rubs *Routine Abdominal Exam Abdominal: Present soft; Absent tenderness *Routine Extremities Exam Extremities: Present pulses intact; Absent cyanosis or edema *Routine Skin Exam Skin: Present intact; Absent erythema or wounds *Routine Neurological Exam Neurological: Present alert Comments: Poor historian AMS Routine Psychiatric Exam Psychiatric: Present cooperative Meds Home Medications and Allergies Home Medications ?Medication ?Instructions ?Recorded ?Confirmed ?Type ascorbic acid (vitamin C) 500 mg 500 mg PO DAILY 05/25/22 09/28/24 History tablet,extended release cholecalciferol (vitamin D3) 125 125 mcg PO DAILY 05/25/22 09/28/24 History mcg (5,000 unit) capsule simvastatin 20 mg tablet 20 mg PO HS 05/25/22 09/28/24 History donepezil 5 mg tablet 5 mg PO HS 07/31/23 09/28/24 History escitalopram oxalate 20 mg tablet 20 mg PO HS 07/31/23 09/28/24 History memantine 10 mg tablet 10 mg PO BID 07/31/23 09/28/24 History pantoprazole 40 mg tablet,delayed 40 mg PO BID 10/17/23 09/28/24 History release bupropion HCl 150 mg 24 hr tablet, 150 mg PO DAILY 09/28/24 09/28/24 History extended release lisinopril 20 mg tablet 20 mg PO HS 09/28/24 09/28/24 History New Prescriptions to Start Prescriptions: Allergies Allergy/AdvReac Type Severity Reaction Status Date / Time morphine (MORPHINE) Allergy Unknown HIVES/FEVER Verified 01/16/24 15:14 Penicillins (PENICILLINS) Allergy Unknown I-RASH Verified 01/16/24 15:14 Sulfa (Sulfonamide Allergy Unknown I-RASH Verified 01/16/24 15:14 Antibiotics) (SULFA (SULFONAMIDE ANTIBIOTICS)) Assessment and Plan *Assessment and plan (1) Type 2 myocardial infarction: Status: Acute Category: Medical Code(s): I21.A1 - Myocardial infarction type 2 (2) UTI (urinary tract infection): Status: Acute Category: Medical Code(s): N39.0 - Urinary tract infection, site not specified (3) Rhabdomyolysis: Status: Acute Category: Medical Code(s): M62.82 - Rhabdomyolysis Plan Type II Myocardial Infarction - mild Trop elevation to 0.05 in absence of angina or CV history - EKG - SR without ischemia - ECHO pending - Plan: Add ASA. Cont Lisinopril and Statin. Further plans pending ECHO results. Likely OP stress imaging to r/o underlying ischemia. UTI - pos UA and AMS - on Ab Rhabdomyolysis - stable renal function now - plans per primary service AMS/Frailty - awaiting SNF placement 09/30: CV stable, this does not appear to be ACS. Further plans pending ECHO results. ADDENDUM: ECHO shows nml EF, mild AI, no wall motion abnormalities. CV stable for discharge with above med changes. We can see her with POA in office in 2 weeks to discuss further possible ischemic workup. Please advise if further CV concerns this admission.
--- NOTE | 2024-09-30 10:37 | CARE MANAGER ---
Laboratory Results - last 24 hr 09/30/24 05:20: WBC 5.5, RBC 3.79 L, Hgb 11.6 L, Hct 34.5 L, MCV 91.0, MCH 30.6, MCHC 33.6, RDW 12.8, Plt Count 207, MPV 10.4, Neut % (Auto) 59.3, Lymph % (Auto) 23.3, [place] % (Auto) 9.6 H, Eos % (Auto) 6.9, Baso % (Auto) 0.5, Neut # (Auto) 3.3, Lymph # (Auto) 1.3, [place] # (Auto) 0.5, Eos # (Auto) 0.4, Baso # (Auto) 0.0, ESR 22, Sodium 138, Potassium 4.3 D, Chloride 98, Carbon Dioxide 30, Anion Gap 14.3, BUN 20 H, Creatinine 1.00, Estimated Creat Clear 76, Estimated GFR 54 L, Est GFR ( Amer) 66, Glucose 96, Calcium 8.8, Total Bilirubin 0.6, AST 39 H, ALT 23, Alkaline Phosphatase 82, C-Reactive Protein 31.0 H, Total Protein 6.6, Albumin 3.8, Globulin 2.8, Albumin/Globulin Ratio 1.4
--- NOTE | 2024-09-30 10:38 | CARE MANAGER ---
Vital Signs Temperature 99.9 F H 09/27/24 21:37 Pulse Rate 109 H 09/27/24 21:37 Respiratory Rate 18 09/27/24 21:37 Blood Pressure 111/84 09/27/24 21:37 02 Sat by Pulse Oximetry 98 09/27/24 21:37 Oxygen Delivery Method Room Air 09/27/24 21:37 Temperature 98.4 F 09/30/24 08:00 Pulse Rate 60 09/30/24 08:00 Respiratory Rate 18 09/30/24 08:00 Blood Pressure 105/53 L 09/30/24 08:00 02 Sat by Pulse Oximetry 96 09/30/24 08:20 Oxygen Delivery Method Room Air 09/30/24 09:10
--- NOTE | 2024-09-30 11:09 | P.PN_ITS ---
<Statement entered by Sam Oates MD - 09/30/24 17:41> Rounded on patient after nurse practitioner. Personally examined and interviewed patient. Agree with exam findings and care plan as documented. Subjective *Date: 09/30/24 *Time: 13:38 Interval history: Patient sitting up in bed, pleasantly confused. Able to tell me her name, that she is in the hospital, and her birthday. Daughter at bedside states this is close to her baseline. That she may be a little more confused than normal. Patient currently being treated for UTI. Medical Exam Vital signs and Labs for Last 24 Hours: Vital Signs Temp Pulse Resp BP Pulse Ox O2 Del Method 09/30/24 09:10 Room Air 09/30/24 08:20 96 Room Air 09/30/24 08:00 98.4 F 60 18 105/53 L 96 Room Air 09/30/24 06:41 Room Air 09/30/24 05:00 Room Air 09/30/24 04:00 97.6 F 73 14 118/76 94 L Room Air 09/30/24 03:00 Room Air 09/30/24 01:00 Room Air 09/29/24 23:00 Room Air 09/29/24 21:00 Room Air 09/29/24 20:00 97.8 F 91 H 16 98/56 L 96 Room Air 09/29/24 20:00 Room Air 09/29/24 18:54 Room Air 09/29/24 17:00 Room Air 09/29/24 16:00 98.4 F 79 18 107/81 L 95 Room Air 09/29/24 15:00 Room Air 09/29/24 13:00 Room Air 09/29/24 12:00 98.4 F 84 18 109/64 L 98 Room Air Intake and Output 09/29/24 09/30/24 09/30/24 23:59 07:59 15:59 Intake Total 120 / 600 Output Total 2500 / 2800 Balance -2380 / -2200 Intake: Intake, Oral Amount 120 / 600 Output: Output, Urine Amount 2500 / 2800 Other: Number of Unmeasured Voids 0 Weight 96.479 kg Patient Weight 09/30/24 23:59 Weight 96.479 kg Laboratory Results - last 24 hr 09/30/24 05:20: WBC 5.5, RBC 3.79 L, Hgb 11.6 L, Hct 34.5 L, MCV 91.0, MCH 30.6, MCHC 33.6, RDW 12.8, Plt Count 207, MPV 10.4, Neut % (Auto) 59.3, Lymph % (Auto) 23.3, [place] % (Auto) 9.6 H, Eos % (Auto) 6.9, Baso % (Auto) 0.5, Neut # (Auto) 3.3, Lymph # (Auto) 1.3, Sac # (Auto) 0.5, Eos # (Auto) 0.4, Baso # (Auto) 0.0, ESR 22, Sodium 138, Potassium 4.3 D, Chloride 98, Carbon Dioxide 30, Anion Gap 14.3, BUN 20 H, Creatinine 1.00, Estimated Creat Clear 76, Estimated GFR 54 L, Est GFR ( Amer) 66, Glucose 96, Calcium 8.8, Total Bilirubin 0.6, AST 39 H, ALT 23, Alkaline Phosphatase 82, C-Reactive Protein 31.0 H, Total Protein 6.6, Albumin 3.8, Globulin 2.8, Albumin/Globulin Ratio 1.4 I & O for Labs for Last 24 Hours: Intake & Output 09/27/24 09/28/24 09/29/24 09/30/24 23:59 23:59 23:59 23:59 Intake Total 830 / 830 600 / 600 Output Total 1300 / 1300 2800 / 2800 Balance -470 / -470 -2200 / -2200 Weight 142.882 kg 98.566 kg 95.39 kg 96.479 kg Microbiology Reports for the Last 24 Hours: Microbiology 09/30/24 08:08 Toe,Left Fifth Gram Stain - Final 09/28/24 06:30 Urine,Clean Catch Urine Culture - Final Escherichia coli 09/27/24 21:31 Blood Blood Culture - Preliminary NO GROWTH AFTER 48 HOURS 09/27/24 21:20 Blood Blood Culture - Preliminary NO GROWTH AFTER 48 HOURS Assessment and Plan *Assessment and plan (1) Declining functional status: Status: Acute Category: Medical Code(s): R53.81 - Other malaise (2) Fall at home: Status: Acute Qualifiers: Encounter type: initial encounter Qualified Code(s): W19.XXXA - Unspecified fall, initial encounter; Y92.009 - Unspecified place in unspecified non-institutional (private) residence as the place of occurrence of the external cause Category: Medical Code(s): W19.XXXA - Unspecified fall, initial encounter; Y92.009 - Unspecified place in unspecified non-institutional (private) residence as the place of occurrence of the external cause (3) Adult failure to thrive: Status: Acute Category: Medical Code(s): R62.7 - Adult failure to thrive (4) Dementia: Status: Acute Category: Medical Code(s): F03.90 - Unspecified dementia, unspecified severity, without behavioral disturbance, psychotic disturbance, mood disturbance, and anxiety (5) UTI (urinary tract infection): Status: Acute Category: Medical Code(s): N39.0 - Urinary tract infection, site not specified (6) Rhabdomyolysis: Status: Acute Category: Medical Code(s): M62.82 - Rhabdomyolysis (7) NSTEMI (non-ST elevated myocardial infarction): Problem Comment: type 2 Status: Acute Category: Medical Code(s): I21.4 - Non-ST elevation (NSTEMI) myocardial infarction Plan Patient is a 73-year-old female with past medical history of dementia & obesity who presents to the hospital due to change in mental status, generalized weakness, frequent falls at home. Patient is unable to provide history at time of my evaluation, most of the history is from patient's chart, reportedly p atient lives by herself, daughter checks on her almost every day. Patient was found confused and was sent to the emergency department for further evaluation. On further evaluation patient was found to have sepsis, and increased confusion. Patient was admitted for further management. According to the family patient has been having significant decline over the past 2 weeks and they are intereste d in patient getting to skilled nursing, additionally they are worried due to frequent falls. Continues to require inpatient management. Problems addressed as follows: #Frequent falls #Rhabdomyolysis #NSTEMI - Falling at home. Workup in the ED negative for acute intracranial process or trauma. No fractures on x-rays of foot or ankle. Patient complains today of right hip pain, daughter states that she fell and hurt her right hip. X-ray pending. - CK elevated at 543. Troponin elevated from 0.02-0.05. No ischemic changes on EKG. Cardiology consulted, NSTEMI consistent with type II from stress of falls/acute illness. They recommend outpatient workup for CV ischemia. ? Echo shows normal EF, no wall motion abnormalities. ?WBC today is 5.5, hemoglobin stable at 11.6, kidney function remains normal with a BUN of 20, and creatinine of 1.00. Patient was noted to be hypokalemic yesterday, was replaced via electrolyte replacement protocol. Potassium today 4.3. - NSTEMI consistent with type II from stress of falls and acute illness. Cardiology consulted to evaluate the - BNP obtained on admission, 1100. Patient remained stable on room air, O2 saturation 96%. ?Patient receiving Lasix 40 mg twice daily. Has had excellent urine output. Edema has decreased in bilateral lower extremities. ?Will monitor CBC, CMP in the a.m. #UTI: ? Urinalysis abnormal, positive for bacteria, nitrate, trace leuk esterase. ? Continue on ceftriaxone 1 g daily, urine culture positive for E. coli. Sensitive to ceftriaxone. Continue IV antibiotics at this time. #History of dementia #Acute encephalopathy #Depression - Confusion multifactorial. Suspect secondary to infection, consistent with toxic encephalopathy - Monitor for improvement with treatment of UTI - Continue home meds for dementia and including memantine 10 mg twice daily, Lexapro 20 mg nightly, donepezil 5 mg nightly, Wellbutrin 150 mg daily PT/OT evaluation recommends rehab placement once medically stable at discharge. This is agreeable with the patient and the family. DNI Regular diet DVT prophylaxis-subcutaneous heparin
[2024-09-30] MEDS: ASPIRIN EC 81MG TABLET 81 MG PO (11:22)
[2024-09-30 12:00] VITALS: BP 113/63; PULSE 92; RESP 18; TEMP 36.6; O2SAT 97
[2024-09-30] MEDS: ACETAMINOPHEN 325MG TAB 650 MG PO (12:25)
--- NOTE | 2024-09-30 13:29 | XR_ITS ---
FINAL REPORT CLINICAL HISTORY: right hip pain, fall COMPARISON: None FINDINGS: RIGHT HIP Three views of the right hip with an AP view of the pelvis demonstrate a total right hip joint prosthesis with intact hardware. There is no definite acute fracture. The bones are osteopenic. The visualized bony structures are well aligned. No soft tissue abnormality is seen. IMPRESSION: No definite acute fracture. Intact hardware. Reviewed, Interpreted and Dictated by Leander Stubbs MD Transcribed by Osiris Mcgarry Authenticated and [facility]
--- NOTE | 2024-09-30 15:03 | SW/DCPLANNER ---
Addendum entered by Morena Beltran RN 10/02/24 10:50: Patient is planned for discharge to [facility] today, [facility] level of care. Addendum entered by Fely Nails RN 10/01/24 14:25: Auth is approved. Patient may be ready in the morning, but at this time needs to be monitored. Will continue to follow. Original Note: Patient is going to require short term rehab. Information sent to [facility] and [facility]. [facility] is starting an authorization for her.
[2024-09-30 16:00] VITALS: BP 101/48; PULSE 80; RESP 18; TEMP 37; O2SAT 97
[2024-09-30 19:55] VITALS: BP 106/60; PULSE 71; RESP 17; TEMP 36.9; O2SAT 93
[2024-09-30] MEDS: PRAVASTATIN 40MG TAB 40 MG PO (21:08)
[2024-09-30] MEDS: PANTOPRAZOLE 40MG TABLET 40 MG PO (21:08)
[2024-09-30] MEDS: ESCITALOPRAM 20MG TABLET 20 MG PO (21:08)
[2024-09-30] MEDS: LISINOPRIL 20MG TABLET 20 MG PO (21:08)
[2024-10-01] VITALS (11 sets, daily range): BP systolic 67–110; BP diastolic 38–63; PULSE 49–90; RESP 15–18; TEMP 36.3–37; O2SAT 92–96; BMI 36.8
--- NOTE | 2024-10-01 06:33 | PC.NURSE ---
v/s, alert to self only, RA. Pt was pleasant during shift. No acute events to report. Plan of care ongoing.
[2024-10-01 06:47] LABS: Hematocrit 37.9 % (37.0-47.0); Hemoglobin 12.6 g/dL (12.2-16.2); Immature Granulocytes % 0.2 %; Mean Corpuscular HGB Conc 33.2 g/dL (31.8-35.4); Mean Corpuscular Hemoglobin 30.7 pg (27.0-31.2); Mean Corpuscular Volume 92.4 fl (81-99); Nucleated Red Blood Cells % 0 %; Platelet Count 224 K/mm3 (142-424); Red Blood Count 4.10 M/mm3 (4.20-5.40); Red Cell Distribution Width-SD 43.8 fL; White Blood Count 5.9 K/mm3 (4.8-10.8)
[2024-10-01 07:01] LABS: Alanine Aminotransferase 21 U/L (12-78); Albumin Level 4.0 g/dl (3.5-5.0); Albumin/Globulin Ratio 1.4 (1.1-1.8); Alkaline Phosphatase 80 U/L (38-126); Anion Gap 17.3 mEq/L (5-15); Aspartate Amino Transferase 32 U/L (14-36); Bilirubin,Total 0.6 mg/dl (0.2-1.3); Blood Urea Nitrogen 26 mg/dl (7-17); Calcium 9.2 mg/dl (8.4-10.2); Carbon Dioxide 30 mmol/L (22.0-30.0); Chloride 96 mmol/L (98-107); Creatinine Clearance Estimated 77 mL/min (50-200); Creatinine,Serum 1.00 mg/dl (0.52-1.04); Estimated Glomerular Filt Rate 54 ml/min (>60); GFR (African American) 66 ML/MIN (>60); Globulin 2.8 g/dL (1.3-3.2); Glucose 107 mg/dl (74-100); Potassium 4.3 mmoL/L (3.5-5.1); Sodium 139 mmol/L (136-145); Total Protein,Serum 6.8 g/dl (6.3-8.2)
--- NOTE | 2024-10-01 07:06 | P.PN_ITS ---
Subjective *Date: 10/01/24 *Time: 08:03 Interval history: Patient is doing much better this morning, sitting up in bed eating breakfast. Patient stated she has some pain directly to the site of Left sub 5th, but not to the surrounding tissues, this is an improvement from yesterday. Ortho Exam (Inpt) Vital signs and Labs for Last 24 Hours: Temp Pulse Resp BP Pulse Ox O2 Del Method 98.6 F 75 15 98/58 L 96 Room Air 10/01/24 04:00 10/01/24 04:00 10/01/24 04:00 10/01/24 04:00 10/01/24 04:00 10/01/24 06:33 Laboratory Results - last 24 hr 09/30/24 05:20: ESR 22, C-Reactive Protein 31.0 H 10/01/24 06:37: WBC 5.9, RBC 4.10 L, Hgb 12.6, Hct 37.9, MCV 92.4, MCH 30.7, MCHC 33.2, RDW 12.9, Plt Count 224, MPV 9.9, Neut % (Auto) 59.9, Lymph % (Auto) 24.9, [place] % (Auto) 8.2, Eos % (Auto) 6.3, Baso % (Auto) 0.5, Neut # (Auto) 3.5, Lymph # (Auto) 1.5, [place] # (Auto) 0.5, Eos # (Auto) 0.4, Baso # (Auto) 0.0, Sodium 139, Potassium 4.3, Chloride 96 L, Carbon Dioxide 30, Anion Gap 17.3 H, B UN 26 H D, Creatinine 1.00, Estimated Creat Clear 77, Estimated GFR 54 L, Est GFR ( Amer) 66, Glucose 107 H, Calcium 9.2, Total Bilirubin 0.6, AST 32, ALT 21, Alkaline Phosphatase 80, Total Protein 6.8, Albumin 4.0, Globulin 2.8, Albumin/Globulin Ratio 1.4 I & O for Labs for Last 24 Hours: Intake & Output 09/28/24 09/29/24 09/30/24 10/01/24 23:59 23:59 23:59 23:59 Intake Total 830 / 830 600 / 600 1370 / 1370 60 / 60 Output Total 1300 / 1300 2800 / 2800 1000 / 1000 600 / 600 Balance -470 / -470 -2200 / -2200 370 / 370 -540 / -540 Weight 217 lb 4.8 oz 210 lb 4.8 oz 212 lb 11.2 oz 216 lb Microbiology Reports for the Last 24 Hours: Microbiology 09/30/24 08:08 Toe,Left Fifth Gram Stain - Final 09/28/24 06:30 Urine,Clean Catch Urine Culture - Final Escherichia coli Constitutional: Present no acute distress and cooperative Head: Present normocephalic Eyes: Present as per HPI Neck: Present normal inspection Respiratory: Present normal respiratory effort Cardiac: Present posterior tibial pulses present and pedal pulses present GI: Present soft Rectal (female): Present deferred (female): Present deferred Extremities: Present tenderness and edema (Left sub-fifth met; improved ) Skin: Present erythema and normal turgor Comment:: -Pre-ulcerative callus noted to left sub 5th metatarsal. Localized edema, mild erythema with pain on palpation. -No debridement done or needed today. -Measurements were the same 2.5 x 1.5 x 0.4 cm. -Pressure ulcer looking much better today,less erythema and edema, no drainage. Neuro: Present Motor Function Intact, oriented x 3 and moves all extremities Ankle: left: wound (Left sub 5th met pressure ulcer) and bilateral: normal inspection and bilateral: swelling (Mild B/L LE) Feet/Toes: left: swelling (L sub 5th met), left: tenderness (L sub 5th met) and left: wound (L sub 5th met pressure ulcer) and bilateral: normal inspection, bilateral: bunion, bilateral: deformity (cross over toe deformity), bilateral: hammer toe, bilateral: nail abnormalities (Thick and dystrophic) and bilateral: onychomycosis Feet w/LR Ind Bottom: 2 1. Left sub 5th met pre-ulcerative callus Comments:: Hammertoes B/L 2nd -5th, rotated internally in varus 3,4,5 B/L. Dislocating right 2nd toe at MPJ level, rigid HT at PIPJ. Right 3-4th toes cross under the 2nd toe. Tailor's bunionette B/L, left side most severe. Left HAV severe. B/L Flatfeet. Prominent plantar 4th and 5th metatarsal heads on left foot, re Inspection: Present foot deformity deformity: Present bunion, hallux valgus, hammer toes, pes planus and deformed toes, nail disorder, calluses/corns, infection and ulceration Pulses: L dorsalis pedis pulse: normal, R dorsalis pedis pulse: normal, L posterior tibial pulse: normal and R posterior tibial pulse: normal CFT: normal: CFTsultant deep painful sheer calluses. L 5th met bursitis noted. Assessment and Plan *Assessment and plan (1) Pressure ulcer of left foot: Status: Acute Qualifiers: Pressure injury stage: stage 3 Qualified Code(s): L89.893 - Pressure ulcer of other site, stage 3 Category: Medical Code(s): L89.899 - Pressure ulcer of other site, unspecified stage (2) Cellulitis of left foot: Status: Acute Category: Medical Code(s): L03.116 - Cellulitis of left lower limb (3) Pre-ulcerative calluses: Status: Acute Category: Medical Code(s): L84 - Corns and callosities (4) Bursitis of left foot: Status: Acute Category: Medical Code(s): M77.52 - Other enthesopathy of left foot and ankle (5) Hammertoes of both feet: Status: Acute Category: Medical Code(s): M20.41 - Other hammer toe(s) (acquired), right foot; M20.42 - Other hammer toe(s) (acquired), left foot (6) Onychodystrophy: Status: Acute Category: Medical Code(s): L60.3 - Nail dystrophy (7) Arthritis of both feet: Status: Acute Category: Medical Code(s): M19.071 - Primary osteoarthritis, right ankle and foot; M19.072 - Primary osteoarthritis, left ankle and foot (8) Acquired hallux valgus of both feet: Status: Acute Category: Medical Code(s): M20.11 - Hallux valgus (acquired), right foot; M20.12 - Hallux valgus (acquired), left foot Plan Imagin01/16/24, 3v left ankle reviewed. FINDINGS: Bones/joints: Old avulsion fracture off the medial malleolus. Degenerative changes in the medial and lateral malleolus. There is no evidence of acute fracture.There is no evidence of malalignment or dislocation. Bi malleolar soft tissue swelling Soft tissues: See Bones/joints finding. IMPRESSION: There is no evidence of acute fracture.There is no evidence of malalignment or dislocation. 3v left foot FINDINGS: Bones/joints: Significant hallux valgus deformity of the great toe. Degenerative changes in the tarsometatarsal joints especially the 1st tarsometatarsal joint. Degenerative changes in the 1st metatarsophalangeal joint and IP joint and tarsal bones. There is no evidence of acute fracture.There is no evidence of malalignment or dislocation. Soft tissues: Normal. IMPRESSION: 1. Significant hallux valgus deformity of the great toe. 2. Degenerative changes in the tarsometatarsal joints especially the 1st tarsometatarsal joint. Degenerative changes in the 1st metatarsophalangeal joint and IP joint and tarsal bones. 3. There is no evidence of acute fracture.There is no evidence of malalignment or dislocation. 09/30/24, 3v left foot reviewed. CLINICAL HISTORY: Left bursa, pressure ulcer. COMPARISON: 07/31/2023. FINDINGS: LEFT FOOT Three views demonstrate no acute fracture or dislocation. There is a bandage and skin dressing overlying the distal fifth metatarsal. On the lateral view, there is a moderate plantar spur. There is a hallux valgus deformity with moderate hypertrophic changes of the first MTP. There are marked hypertrophic changes at the first tarsometatarsal joint. No definite bony erosion is evident. IMPRESSION: No definite bony erosion is identified. Degenerative changes without acute bony abnormality. Reviewed, Interpreted and Dictated by Leander Stubbs MD. Transcribed by Kirti Zamora. Labs: 09/27/24: wbc 8.3, cr 1.0, gfr 54, glucose 127, albumin 4.3, total CK 543H 09/30/24: wbc 5.5, esr 22, crp 31.0H, cr 1.0, gfr 54, glucose 96, albumin 3.8 10/01/24: wbc.5.9, cr 1.0, gfr 54, glucose 107,albumin 4.0 Specimens: 09/30/24: Left sub 5th met ulcer WCx: Gram stain not showing any organisms, wound culture still pending 09/30/24, Podiatry Consult: -Admitted for CP. Presents with painful pre-ulcerative calluses and elongated toenails. -NAIL CARE: last on 07/31/23, 10/17/23, 01/16/24 -Discussed with the patient the importance of keeping the toenails well managed to avoid sore/ulcers which can result from the nails digging into the skin. -The patient can not bend over and has difficulty to cut the nails. -Indications: 10 painful, dystrophic irregular toenails in length and thickness. -Nails x10 debrided with nail nippers. Patient appeared to tolerate procedure well without complication. -CALLUS CARE: last on 08/22/23, 09/12/23, 10/17/23, 01/16/24 -R 2nd toe debrided thru skin only, no underlying ulcer noted. -L sub 5th met callus had underlying pressure ulcer noted. Sharp excisional full thickness debrided thur skin, subq. WCx taken. -X-rays 3v left foot to rule out 5th met osteomyelitis. I dependently reviewed the x-ray imaging and no cortical erosions or changes to the fifth metatarsal head under the ulcer site. Arthritis, bunions and hammertoe deformities noted/ -Check esr, crp. -Rec broad spectrum antibiotics until WCx results. -X-rays and labs not consistent with underlying osteomyelitis. Diagnosis: cellulitis/inflamed 5th MTPJ bursa with pressure ulcer. No plans for surgical intervention at this time. Will monitor and reevaluate tomorrow. -Plan for Podiatry dressing change in am. 10/01/24, Podiatry Consult: -Podiatry performed nail and callus care for patient yesterday 09/30/24. -The patient can not bend over and has difficulty to cut the nails. Discussed keeping routine foot car, keeping the toenails well managed to avoid sore/ulcers which can result from the nails digging into the skin. -X-rays 3v left foot to rule out 5th met osteomyelitis. I dependently reviewed the x-ray imaging and no cortical erosions or changes to the fifth metatarsal head under the ulcer site. Arthritis, bunions and hammertoe deformities noted. -Patiently currently being treated for UTI with ceftriaxone 1 g daily -Wound culture was obtained from the left sub 5th met, Gram stain not showing any organisms, wound culture still pending -Podiatry cleaned site with wound stove cleaner and betadine paint to ulcer, betadine gauze, DSD applied. -No debridement done today, the measurements were the same 2.5 x 1.5 x 0.4 cm. -No surgical plans at this time -Patient will need a size 8.5-9 post op shoe for FWB with a walker -Daily dressing changes needed: Betadine soaked gauze, DSD, kerlix and montse wrap vs allevyn foam pad dressing. -All orders per Dr. Brian
--- NOTE | 2024-10-01 07:38 | P.PN_ITS ---
Subjective *Date: 10/01/24 *Time: 07:38 Medical Exam Vital signs and Labs for Last 24 Hours: Vital Signs Temp Pulse Resp BP Pulse Ox O2 Del Method 10/01/24 06:33 Room Air 10/01/24 04:00 98.6 F 75 15 98/58 L 96 Room Air 10/01/24 03:00 Room Air 10/01/24 01:00 Room Air 10/01/24 00:00 98.6 F 80 16 110/63 92 L Room Air 09/30/24 23:00 Room Air 09/30/24 21:00 Room Air 09/30/24 20:00 Room Air 09/30/24 19:55 98.5 F 71 17 106/60 L 93 L 09/30/24 18:53 Room Air 09/30/24 17:00 Room Air 09/30/24 16:00 98.6 F 80 18 101/48 L 97 Room Air 09/30/24 15:05 Room Air 09/30/24 13:00 Room Air 09/30/24 12:00 97.8 F 92 H 18 113/63 97 Room Air 09/30/24 11:05 Room Air 09/30/24 09:10 Room Air 09/30/24 08:20 96 Room Air 09/30/24 08:00 98.4 F 60 18 105/53 L 96 Room Air Intake and Output 09/30/24 09/30/24 10/01/24 15:59 23:59 07:59 Intake Total 960 / 1430 410 / 1430 60 / 60 Output Total 500 / 1300 500 / 1300 600 / 600 Balance 460 / 130 -90 / 130 -540 / -540 Intake: Intake, Oral Amount 960 / 1380 360 / 1380 60 / 60 Intake, Total IV Amount 50 / 50 Ceftriaxone Sodium 1 gm In 0.9 50 / 50 % Sodium Chloride 50 ml @ 100 mls/hr IV Q24H [facility] Rx#:[id number] Output: Output, Urine Amount 500 / 1300 500 / 1300 600 / 600 Other: Number of Unmeasured Voids 0 0 0 Weight 97.976 kg Patient Weight 10/01/24 23:59 Weight 97.976 kg Laboratory Results - last 24 hr 09/30/24 05:20: ESR 22, C-Reactive Protein 31.0 H 10/01/24 06:37: WBC 5.9, RBC 4.10 L, Hgb 12.6, Hct 37.9, MCV 92.4, MCH 30.7, MCHC 33.2, RDW 12.9, Plt Count 224, MPV 9.9, Neut % (Auto) 59.9, Lymph % (Auto) 24.9, [place] % (Auto) 8.2, Eos % (Auto) 6.3, Baso % (Auto) 0.5, Neut # (Auto) 3.5, Lymph # (Auto) 1.5, [place] # (Auto) 0.5, Eos # (Auto) 0.4, Baso # (Auto) 0.0, Sodium 139, Potassium 4.3, Chloride 96 L, Carbon Dioxide 30, Anion Gap 17.3 H, BUN 26 H D, Creatinine 1.00, Estimated Creat Clear 77, Estimated GFR 54 L, Est GFR ( Amer) 66, Glucose 107 H, Calcium 9.2, Total Bilirubin 0.6, AST 32, ALT 21, Alkaline Phosphatase 80, Total Protein 6.8, Albumin 4.0, Globulin 2.8, Albumin/Globulin Ratio 1.4 I & O for Labs for Last 24 Hours: Intake & Output 09/28/24 09/29/24 09/30/24 10/01/24 23:59 23:59 23:59 23:59 Intake Total 830 / 830 600 / 600 1370 / 1430 60 / 60 Output Total 1300 / 1300 2800 / 2800 1000 / 1300 600 / 600 Balance -470 / -470 -2200 / -2200 370 / 130 -540 / -540 Weight 98.566 kg 95.39 kg 96.479 kg 97.976 kg Microbiology Reports for the Last 24 Hours: Microbiology 09/30/24 08:08 Toe,Left Fifth Gram Stain - Final 09/28/24 06:30 Urine,Clean Catch Urine Culture - Final Escherichia coli The patient's infection will respond to the chosen ABx?: Yes Is the patient receiving the right drug, dose, and route?: Yes Could a more targeted ABx be ordered?: No (WBC WNL, URINE CX + FOR E. COLI SENSISITVE TO ROCEPHIN.)
[2024-10-01] MEDS: HEPARIN SODIUM 5,000 UNIT/ML VIAL 5000 UNIT SUBCUT ×2 (08:23→20:27)
[2024-10-01] MEDS: MEMANTINE 10MG TABLET 10 MG PO ×2 (08:23→20:27)
[2024-10-01] MEDS: FUROSEMIDE 40 MG TABLET PO (08:23)
[2024-10-01] MEDS: ASPIRIN EC 81MG TABLET 81 MG PO (08:23)
[2024-10-01] MEDS: ACETAMINOPHEN 325MG TAB 650 MG PO (08:56)
[2024-10-01] MEDS: POLYETHYLENE GLYCOL 3350 17 GM PACKET PO (11:44)
--- NOTE | 2024-10-01 12:42 | ECG_ITS ---
APPROVED REPORT Exam: Resting ECG HR:80 bpm ECG Measurements Heart Rate 80 AXES KS 142 P 46 QRSd 95 QRS 2 QT 371 T 30 QTc 407 Conclusion SINUS RHYTHM NORMAL ECG UNCONFIRMED REPORT Electronically signed by : Jason Leonard MD 10/02/2024 08:19:45
--- NOTE | 2024-10-01 12:46 | XR_ITS ---
FINAL REPORT CLINICAL HISTORY: suspected impaction, vasovagal syncope COMPARISON: None FINDINGS: ABDOMEN SINGLE VIEW / KUB A single view of the abdomen was obtained with a coned down view of the pelvis. Gas and stool are seen throughout the colon. There are no abnormally dilated loops of small bowel. No abnormal calcification is identified. There is 30 degrees of lumbar scoliosis convex to the right. Right hip prosthetic is present. IMPRESSION: Gas and stool throughout the colon. Reviewed, Interpreted and Dictated by Leander Stubbs MD Transcribed by Osiris Mcgarry Authenticated and [facility]
--- NOTE | 2024-10-01 13:50 | EXP.ACUTE.PN ---
Subjective *Date: 10/01/24 *Time: 09:45 Interval history: Patient sitting up in the bed, well-appearing, working on eating breakfast. She states that she feels well, she is still pleasantly confused. Alert to self, birthday, that she is at a hospital. She is unable to tell me where she is, or what she is here for. This is her baseline. She states she got sleep last night, and seems to be in a very good mood. Medical Exam Vital signs and Labs for Last 24 Hours: Vital Signs Temp Pulse Pulse Resp BP BP Pulse Ox 10/01/24 13:38 84/43 L 10/01/24 13:20 75 104/62 L 10/01/24 13:00 61 76/38 L 78/56 L 94 L 10/01/24 12:40 82/50 L 10/01/24 12:38 97.3 F L 76 67/53 L 94 L 10/01/24 11:05 10/01/24 09:00 10/01/24 08:00 97.5 F L 83 18 101/57 L 96 10/01/24 08:00 96 10/01/24 06:33 10/01/24 04:00 98.6 F 75 15 98/58 L 96 10/01/24 03:00 10/01/24 01:00 10/01/24 00:00 98.6 F 80 16 110/63 92 L 09/30/24 23:00 09/30/24 21:00 09/30/24 20:00 09/30/24 19:55 98.5 F 71 17 106/60 L 93 L 09/30/24 18:53 09/30/24 17:00 09/30/24 16:00 98.6 F 80 18 101/48 L 97 09/30/24 15:05 O2 Del Method 10/01/24 13:38 Room Air 10/01/24 13:20 Room Air 10/01/24 13:00 Room Air 10/01/24 12:40 10/01/24 12:38 Room Air 10/01/24 11:05 Room Air 10/01/24 09:00 Room Air 10/01/24 08:00 Room Air 10/01/24 08:00 Room Air 10/01/24 06:33 Room Air 10/01/24 04:00 Room Air 10/01/24 03:00 Room Air 10/01/24 01:00 Room Air 10/01/24 00:00 Room Air 09/30/24 23:00 Room Air 09/30/24 21:00 Room Air 09/30/24 20:00 Room Air 09/30/24 19:55 09/30/24 18:53 Room Air 09/30/24 17:00 Room Air 09/30/24 16:00 Room Air 09/30/24 15:05 Room Air Intake and Output 09/30/24 10/01/24 10/01/24 23:59 07:59 15:59 Intake Total 410 / 1430 60 / 590 530 / 590 Output Total 500 / 1300 600 / 900 300 / 900 Balance -90 / 130 -540 / -310 230 / -310 Intake: Intake, Oral Amount 360 / 1380 60 / 540 480 / 540 Intake, Total IV Amount 50 / 50 50 / 50 Ceftriaxone Sodium 1 gm In 0.9 50 / 50 50 / 50 % Sodium Chloride 50 ml @ 100 mls/hr IV Q24H [facility] Rx#:[id number] Output: Output, Urine Amount 500 / 1300 600 / 900 300 / 900 Other: Number of Unmeasured Voids 0 0 0 Weight 97.976 kg Patient Weight 10/01/24 23:59 Weight 97.976 kg Laboratory Results - last 24 hr 10/01/24 06:37: WBC 5.9, RBC 4.10 L, Hgb 12.6, Hct 37.9, MCV 92.4, MCH 30.7, MCHC 33.2, RDW 12.9, Plt Count 224, MPV 9.9, Neut % (Auto) 59.9, Lymph % (Auto) 24.9, [place] % (Auto) 8.2, Eos % (Auto) 6.3, Baso % (Auto) 0.5, Neut # (Auto) 3.5, Lymph # (Auto) 1.5, [place] # (Auto) 0.5, Eos # (Auto) 0.4, Baso # (Auto) 0.0, Sodium 139, Potassium 4.3, Chloride 96 L, Carbon Dioxide 30, Anion Gap 17.3 H, BUN 26 H D, Creatinine 1.00, Estimated Creat Clear 77, Estimated GFR 54 L, Est GFR ( Amer) 66, Glucose 107 H, Calcium 9.2, Total Bilirubin 0.6, AST 32, ALT 21, Alkaline Phosphatase 80, Total Protein 6.8, Albumin 4.0, Globulin 2.8, Albumin/Globulin Ratio 1.4 I & O for Labs for Last 24 Hours: Intake & Output 09/28/24 09/29/24 09/30/24 10/01/24 23:59 23:59 23:59 23:59 Intake Total 830 / 830 600 / 600 1370 / 1430 590 / 590 Output Total 1300 / 1300 2800 / 2800 1000 / 1300 900 / 900 Balance -470 / -470 -2200 / -2200 370 / 130 -310 / -310 Weight 98.566 kg 95.39 kg 96.479 kg 97.976 kg Microbiology Reports for the Last 24 Hours: Microbiology 09/30/24 08:08 Toe,Left Fifth Gram Stain - Final 09/30/24 08:08 Toe,Left Fifth Wound Culture - Preliminary Constitutional: Present no acute distress, obese, chronically ill appearing and cooperative Head: Present atraumatic ENT: Present normal exam Respiratory: Present normal respiratory effort; Absent rhonchi, wheezes or crackles Cardiac: Present Reg Rate and Rhythm GI: Present soft and normal bowel sounds; Absent distention or tenderness Extremities: Present normal inspection, full ROM and edema (2+ to knee and left leg, 1+ right leg) Skin: Present intact; Absent erythema Neuro: Present Grossly Intact, alert, awake and moves all extremities Comment:: Oriented to self only. Does not know where she is or why. Pleasant. Cooperative. Answers questions appropriately. Appears mildly anxious Assessment and Plan *Assessment and plan (1) Declining functional status: Status: Acute Category: Medical Code(s): R53.81 - Other malaise (2) Fall at home: Status: Acute Qualifiers: Encounter type: initial encounter Qualified Code(s): W19.XXXA - Unspecified fall, initial encounter; Y92.009 - Unspecified place in unspecified non-institutional (private) residence as the place of occurrence of the external cause Category: Medical Code(s): W19.XXXA - Unspecified fall, initial encounter; Y92.009 - Unspecified place in unspecified non-institutional (private) residence as the place of occurrence of the external cause (3) Adult failure to thrive: Status: Acute Category: Medical Code(s): R62.7 - Adult failure to thrive (4) Dementia: Status: Acute Category: Medical Code(s): F03.90 - Unspecified dementia, unspecified severity, without behavioral disturbance, psychotic disturbance, mood disturbance, and anxiety (5) UTI (urinary tract infection): Status: Acute Category: Medical Code(s): N39.0 - Urinary tract infection, site not specified (6) Rhabdomyolysis: Status: Acute Category: Medical Code(s): M62.82 - Rhabdomyolysis (7) NSTEMI (non-ST elevated myocardial infarction): Problem Comment: type 2 Status: Acute Category: Medical Code(s): I21.4 - Non-ST elevation (NSTEMI) myocardial infarction (8) Cellulitis of left foot: Status: Acute Category: Medical Code(s): L03.116 - Cellulitis of left lower limb (9) Pre-ulcerative calluses: Status: Acute Category: Medical Code(s): L84 - Corns and callosities Plan Patient is a 73-year-old female with past medical history of dementia & obesity who presents to the hospital due to change in mental status, generalized weakness, frequent falls at home. Patient is unable to provide history at time of my evaluation, most of the history is from patient's chart, reportedly patient lives by herself, daughter checks on her almost every day. Patient was found confused and was sent to the emergency department for further evaluation. On further evaluation patient was found to have sepsis, and increased confusion. Patient was admitted for further management. According to the family patient has been having significant decline over the past 2 weeks and they are interested in patient getting to skilled nursing, additionally they are worried due to frequent falls. Continues to require inpatient management. Problems addressed as follows: #Frequent falls #Rhabdomyolysis #NSTEMI - Falling at home. Workup in the ED negative for acute intracranial process or trauma. No fractures on x-rays of foot or ankle. Patient complains today of right hip pain, daughter states that she fell and hurt her right hip. X-ray pending. - CK elevated at 543. Troponin elevated from 0.02-0.05. No ischemic changes on EKG. Cardiology consulted, NSTEMI consistent with type II from stress of falls/acute illness. They recommend outpatient workup for CV ischemia. Cardiology has signed off. ? Echo shows normal EF, no wall motion abnormalities. ?WBC today is 5.5, hemoglobin stable at 11.6, kidney function remains normal with a BUN of 20, and creatinine of 1.00. Patient was noted to be hypokalemic yesterday, was replaced via electrolyte replacement protocol. Potassium today 4.3. - NSTEMI consistent with type II from stress of falls and acute illness. Cardiology consulted to evaluate the - BNP obtained on admission, 1100. Patient remained stable on room air, O2 saturation 96%. ?Patient receiving Lasix 40 p.o daily. Continues to have excellent urine output. Trace edema in bilateral lower extremities. ?Will monitor CBC, CMP in the a.m. #Preulcerative callus ?Podiatry was consulted for elongated toenails, preulcerative callus on left foot. Right second toe debridement through skin only, left sub-fifth metatarsal callus had underlying pressure ulcer noted. Sharp excisional full thickness debridement through skin was done. Wound cultures were taken and are pending. X-ray was obtained for osteomyelitis, which were negative. Patient will follow-up with podiatry outpatient in 2 weeks For reevaluation. Daily dressing changes by nursing, Betadine, Xeroform, Genaro, Sanchez. Patient will need 8.5-9 postop shoe for weightbearing with walker at discharge. #UTI: ? Urinalysis abnormal, positive for bacteria, nitrate, trace leuk esterase. ? Continue on ceftriaxone 1 g daily, urine culture positive for E. coli. Sensitive to ceftriaxone. Continue IV antibiotics at this time. #History of dementia #Acute encephalopathy #Depression - Confusion multifactorial. Suspect secondary to infection, consistent with toxic encephalopathy - Monitor for improvement with treatment of UTI. Patient mentation seems to be close to baseline today. Able to tell me her name, birthday, that she is out of the hospital facility. Unable to answer where she is exactly, city, year. Daughter states this is close to her baseline. - Continue home meds for dementia and including memantine 10 mg twice daily, Lexapro 20 mg nightly, donepezil 5 mg nightly, Wellbutrin 150 mg daily #Vasovagal episode #Presyncopal episode ?Rapid response was called due to presyncopal episode. Patient was on bedside commode when she started to feel lightheaded. She became pale, diaphoretic. Nursing staff got her into the bed vital signs were obtained, patient was found to be hypotensive. Patient did not lose consciousness. Fingerstick blood sugar was 141. Patient was alert, able to answer questions. 500 mL saline bolus given. Blood pressure normalized 104/62. KUB was obtained, personally reviewed by me showed large stool burden. Hold lisinopril 20 mg. Close monitoring continues. PT/OT evaluation recommends rehab placement once medically stable at discharge. This is agreeable with the patient and the family. Patient has been accepted to [facility] for SNF. DNI Regular diet DVT prophylaxis-subcutaneous heparin
--- NOTE | 2024-10-01 18:42 | PC.NURSE ---
pt is alert to self only. she had a presyncopal episode earlier today and the rapid response team was called. pt is back to her baseline. she had a KUB scan today that showed stool that is stuck and pt received miralax. she did have a moderate sized bowel movement. pt has no other needs at this time. call light within reach.
--- NOTE | 2024-10-01 18:51 | PC.NURSE ---
1235 Rapid Response called 1238 FSBS 141 VS obtained 67/53, P 76, 94% RA, T 97.3 79/42, P 76, 93% RA 1240 manual BP 82/50 1242 NS 500 ml bolus EKG obtained
[2024-10-01] MEDS: ESCITALOPRAM 20MG TABLET 20 MG PO (20:27)
[2024-10-01] MEDS: PRAVASTATIN 40MG TAB 40 MG PO (20:27)
[2024-10-01] MEDS: PANTOPRAZOLE 40MG TABLET 40 MG PO (20:27)
[2024-10-02] VITALS: BP 91/53; PULSE 80; PULSE 82; RESP 16; TEMP 36.4; O2SAT 97
[2024-10-02 04:00] VITALS: BP 93/69; PULSE 75; PULSE 77; RESP 16; TEMP 36.4; O2SAT 95; BMI 36.6
[2024-10-02] MEDS: ACETAMINOPHEN 325MG TAB 650 MG PO (04:45)
--- NOTE | 2024-10-02 05:45 | PC.NURSE ---
pt's bp ran soft. Pt made strict bedrest. Pt c/o pain, treated per MAY. No acute events to report. Plan of care ongoing.
[2024-10-02 08:00] VITALS: BP 95/56; PULSE 85; PULSE 90; RESP 17; TEMP 36.7; O2SAT 97
[2024-10-02 08:53] LABS: Hematocrit 37.5 % (37.0-47.0); Hemoglobin 12.4 g/dL (12.2-16.2); Immature Granulocytes % 0.3 %; Mean Corpuscular HGB Conc 33.1 g/dL (31.8-35.4); Mean Corpuscular Hemoglobin 31.2 pg (27.0-31.2); Mean Corpuscular Volume 94.5 fl (81-99); Nucleated Red Blood Cells % 0 %; Platelet Count 225 K/mm3 (142-424); Red Blood Count 3.97 M/mm3 (4.20-5.40); Red Cell Distribution Width-SD 46.4 fL; White Blood Count 7.4 K/mm3 (4.8-10.8)
[2024-10-02 09:03] LABS: POC Glucose,Bedside 141 (70-110)
[2024-10-02 09:25] LABS: Alanine Aminotransferase 21 U/L (12-78); Albumin Level 3.6 g/dl (3.5-5.0); Albumin/Globulin Ratio 1.4 (1.1-1.8); Alkaline Phosphatase 69 U/L (38-126); Anion Gap 13.0 mEq/L (5-15); Aspartate Amino Transferase 30 U/L (14-36); Bilirubin,Total 0.5 mg/dl (0.2-1.3); Blood Urea Nitrogen 42 mg/dl (7-17); Calcium 8.6 mg/dl (8.4-10.2); Carbon Dioxide 30 mmol/L (22.0-30.0); Chloride 98 mmol/L (98-107); Creatinine Clearance Estimated 51 mL/min (50-200); Creatinine,Serum 1.50 mg/dl (0.52-1.04); Estimated Glomerular Filt Rate 34 ml/min (>60); GFR (African American) 41 ML/MIN (>60); Globulin 2.6 g/dL (1.3-3.2); Glucose 115 mg/dl (74-100); Magnesium 1.8 mg/dl (1.6-2.3); Potassium 4.0 mmoL/L (3.5-5.1); Sodium 137 mmol/L (136-145); Total Protein,Serum 6.2 g/dl (6.3-8.2)
[2024-10-02] MEDS: ASPIRIN EC 81MG TABLET 81 MG PO (09:36)
[2024-10-02] MEDS: HEPARIN SODIUM 5,000 UNIT/ML VIAL 5000 UNIT SUBCUT (09:37)
[2024-10-02] MEDS: MEMANTINE 10MG TABLET 10 MG PO (09:37)
[2024-10-02] MEDS: POLYETHYLENE GLYCOL 3350 17 GM PACKET PO (09:37)
--- NOTE | 2024-10-02 10:50 | EXP.DC.SUM ---
General Admission date:: 09/28/24 Discharge date: 10/02/24 HPI HPI HPI: Patient is a 73-year-old female with past medical history of dementia obesity who presents to the hospital due to change in mental status, generalized weakness, frequent falls at home. Patient is unable to provide history at time of my evaluation, most of the history is from patient's chart, reportedly patient lives by herself, daughter checks on her almost every day. Patient was found confused and was sent to the emergency department for further evaluation. On further evaluation patient was found to have sepsis, confused. Patient was admitted for further management. According to the family patient has been having significant decline over the past 2 weeks and they are interested in patient getting to senior care. According to family patient has been having frequent falls at home. 09/30/24- Podiatry Consult for Foot/Nail Care, Patient last seen by Podiatry on 01/16/24 for nail care and callus care. Hospital Course Hospital Course Hospital Course: Patient is a 73-year-old female with past medical history of dementia & obesity who presents to the hospital due to change in mental status, generalized weakness, frequent falls at home. Patient is unable to provide history at time of my evaluation, most of the history is from patient's chart, reportedly patient lives by herself, daughter checks on her almost every day. Patient was found confused and was sent to the emergency department for further evaluation. On further evaluation patient was found to have sepsis, and increased confusion. Patient was admitted for further management. According to the family patient has been having significant decline over the past 2 weeks and they are interested in patient getting to senior care, additionally they are worried due to frequent falls. Continues to require inpatient management. Problems were addressed as follows: #Frequent falls #Rhabdomyolysis #NSTEMI - Falling at home. Workup in the ED negative for acute intracranial process or trauma. No fractures noted on x-rays. - CK was initially elevated at 543. Troponin elevated from 0.02-0.05. No ischemic changes on EKG. Cardiology consulted, NSTEMI consistent with type II from stress of falls/acute illness. They recommend outpatient workup for CV ischemia. Will follow-up with outpatient cardiology. ? Echo shows normal EF, no wall motion abnormalities. ?WBC remained stable during admission, no evidence of leukocytosis. hemoglobin stable at 12.4, kidney function slightly elevated, creatinine 1.5. Patient received diuretics for HFpEF exacerbation during admission. Continue to monitor kidney function in the next few days. - NSTEMI consistent with type II from stress of falls and acute illness. - Patient remains stable on room air. ? Patient received Lasix during admission for HFpEF exacerbation, edema greatly improved. Patient slightly hypotensive, will continue Lasix 20 mg p.o. daily at discharge. Hold lisinopril 20 mg and losartan 50 mg until cardiology follow-up. #Preulcerative callus ?Podiatry was consulted for elongated toenails, preulcerative callus on left foot. Right second toe debridement through skin only, left sub-fifth metatarsal callus had underlying pressure ulcer noted. Sharp excisional full thickness debridement through skin was done. Wound cultures were taken and are pending. X-ray was obtained for osteomyelitis, which were negative. Patient will follow-up with podiatry outpatient in 2 weeks For reevaluation. Daily dressing changes by nursing, Betadine, Xeroform, Genaro, Sanchez. Patient will need 8.5-9 postop shoe for weightbearing with walker at discharge. #UTI: ? Urinalysis abnormal, positive for bacteria, nitrate, trace leuk esterase. ? Continue on ceftriaxone 1 g daily, urine culture positive for E. coli. Sensitive to ceftriaxone. Continue cefdinir 300 mg x 2 days for total of 7 days antibiotic therapy. #History of dementia #Acute encephalopathy #Depression - Patient mentation seems to be close to baseline today. Able to tell me her name, birthday, that she is out of the hospital facility. Unable to answer where she is exactly, city, year, per daughter this is her baseline. - Continue home meds for dementia and including memantine 10 mg twice daily, Lexapro 20 mg nightly, donepezil 5 mg nightly, Wellbutrin 150 mg daily #Vasovagal episode #Presyncopal episode ?Rapid response was called due to presyncopal episode on 10/01. Patient was on bedside commode when she started to feel lightheaded. She became pale, diaphoretic. Nursing staff got her into the bed vital signs were obtained, patient was found to be hypotensive. Patient did not lose consciousness. Fingerstick blood sugar was 141. Patient was alert, able to answer questions. 500 mL saline bolus given. Blood pressure normalized 104/62, blood pressures have remained stable overnight. KUB was obtained, personally reviewed by me showed large stool burden. Hold lisinopril 20 mg and losartan 50 mg daily until cardiology follow-up. PT/OT evaluation recommends rehab placement once medically stable at discharge. This is agreeable with the patient and the family. Patient has been accepted to [place] for SNF. Exam Data for Last 24 hours Vital signs and Labs for Last 24 Hours: Temp Pulse Resp BP Pulse Ox O2 Del Method 98.1 F 85 17 95/56 L 97 Room Air 10/02/24 08:00 10/02/24 08:00 10/02/24 08:00 10/02/24 08:00 10/02/24 08:00 10/02/24 09:00 Laboratory Results - last 24 hr 10/01/24 12:38: POC Glucose 141 H 10/02/24 08:46: WBC 7.4 D, RBC 3.97 L, Hgb 12.4, Hct 37.5, MCV 94.5, MCH 31.2, MCHC 33.1, RDW 13.4, Plt Count 225, MPV 9.7, Neut % (Auto) 69.4, Lymph % (Auto) 19.9, [place] % (Auto) 5.2, Eos % (Auto) 4.8, Baso % (Auto) 0.4, Neut # (Auto) 5.2, Lymph # (Auto) 1.5, [place] # (Auto) 0.4, Eos # (Auto) 0.4, Baso # (Auto) 0.0, Sodium 137, Potassium 4.0, Chloride 98, Carbon Dioxide 30, Anion Gap 13.0, BUN 42 H D, Creatinine 1.50 H D, Estimated Creat Clear 51, Estimated GFR 34 L, Est GFR ( Amer) 41 L D, Glucose 115 H, Calcium 8.6, Magnesium 1.8, Total Bilirubin 0.5, AST 30, ALT 21, Alkaline Phosphatase 69, Total Protein 6.2 L, Albumin 3.6, Globulin 2.6, Albumin/Globulin Ratio 1.4 I & O for Last 24 hours: Intake & Output 09/29/24 09/30/24 10/01/24 10/02/24 23:59 23:59 23:59 23:59 Intake Total 600 / 600 1370 / 1430 950 / 1050 460 / 460 Output Total 2800 / 2800 1000 / 1300 900 / 900 0 / 0 Balance -2200 / -2200 370 / 130 50 / 150 460 / 460 Weight 95.39 kg 96.479 kg 97.976 kg 97.211 kg Microbiology Reports for the Last 24 Hours: Microbiology 09/30/24 08:08 Toe,Left Fifth Gram Stain - Final 09/30/24 08:08 Toe,Left Fifth Wound Culture - Preliminary 09/27/24 21:31 Blood Blood Culture - Preliminary NO GROWTH AFTER 4 DAYS 09/27/24 21:20 Blood Blood Culture - Preliminary NO GROWTH AFTER 4 DAYS Constitutional Constitutional: no acute distress, obese and cooperative *Routine HEENT Exam Head: Present normocephalic Eye: Present EOMI ENT: Present mucous membranes moist *Routine Neck Exam Neck: Present supple and full ROM; Absent JVD *Routine Respiratory Exam Respiratory: Present CTA bilaterally, normal respiratory effort, able to speak in complete sentences and symmetric chest movement; Absent wheezes or crackles *Routine Cardiovascular Exam Cardiovascular: Present RRR; Absent murmur *Routine Abdominal Exam Abdominal: Present soft and normoactive bowel sounds; Absent tenderness or distended Comments: Umbilical hernia *Routine Rectal Exam Patient deferred: visual exam *Routine Exam Patient deferred: external exam *Routine Extremities Exam Extremities: Present normal capillary refill and pallor; Absent edema or calf tenderness *Routine Skin Exam Skin: Present intact and dry Comments: Left foot preulcerative callus *Routine Neurological Exam Neurological: Present alert and normal speech Comments: Oriented to self, patient at baseline. Results Data Completed and Pending Labs on day of discharge: Labs from last 24 hours 10/02/24 10/01/24 08:46 12:38 WBC 7.4 D RBC 3.97 L Hgb 12.4 Hct 37.5 MCV 94.5 MCH 31.2 MCHC 33.1 RDW 13.4 Plt Count 225 MPV 9.7 Neut % (Auto) 69.4 Lymph % (Auto) 19.9 [place] % (Auto) 5.2 Eos % (Auto) 4.8 Baso % (Auto) 0.4 Neut # (Auto) 5.2 Lymph # (Auto) 1.5 [place] # (Auto) 0.4 Eos # (Auto) 0.4 Baso # (Auto) 0.0 Sodium 137 Potassium 4.0 Chloride 98 Carbon Dioxide 30 Anion Gap 13.0 BUN 42 H D Creatinine 1.50 H D Estimated Creat Clear 51 Estimated GFR 34 L Est GFR ( Amer) 41 L D Glucose 115 H POC Glucose 141 H Calcium 8.6 Magnesium 1.8 Total Bilirubin 0.5 AST 30 ALT 21 Alkaline Phosphatase 69 Total Protein 6.2 L Albumin 3.6 Globulin 2.6 Albumin/Globulin Ratio 1.4 Preliminary micro results at discharge 09/30/24 08:08 Wound Culture - Preliminary Toe,Left Fifth 09/27/24 21:31 Blood Culture - Preliminary Blood NO GROWTH AFTER 4 DAYS 09/27/24 21:20 Blood Culture - Preliminary Blood NO GROWTH AFTER 4 DAYS DS: Diagnosis Discharge Diagnosis (1) Declining functional status: Status: Acute Code(s): R53.81 - Other malaise (2) Fall at home: Status: Acute Code(s): W19.XXXA - Unspecified fall, initial encounter; Y92.009 - Unspecified place in unspecified non-institutional (private) residence as the place of occurrence of the external cause Qualifiers: Encounter type: initial encounter Qualified Code(s): W19.XXXA - Unspecified fall, initial encounter; Y92.009 - Unspecified place in unspecified non-institutional (private) residence as the place of occurrence of the external cause (3) Adult failure to thrive: Status: Acute Code(s): R62.7 - Adult failure to thrive (4) Dementia: Status: Acute Code(s): F03.90 - Unspecified dementia, unspecified severity, without behavioral disturbance, psychotic disturbance, mood disturbance, and anxiety (5) UTI (urinary tract infection): Status: Acute Code(s): N39.0 - Urinary tract infection, site not specified (6) Rhabdomyolysis: Status: Acute Code(s): M62.82 - Rhabdomyolysis (7) NSTEMI (non-ST elevated myocardial infarction): Status: Acute Code(s): I21.4 - Non-ST elevation (NSTEMI) myocardial infarction Problem details: type 2 (8) Cellulitis of left foot: Status: Acute Code(s): L03.116 - Cellulitis of left lower limb (9) Pre-ulcerative calluses: Status: Acute Code(s): L84 - Corns and callosities Meds Home Medications and Allergies Home Medications ?Medication ?Instructions ?Recorded ?Confirmed ?Type ascorbic acid (vitamin C) 500 mg 500 mg PO DAILY 05/25/22 09/28/24 History tablet,extended release cholecalciferol (vitamin D3) 125 50 mcg PO DAILY 05/25/22 09/30/24 History mcg (5,000 unit) capsule simvastatin 20 mg tablet 20 mg PO HS 05/25/22 09/30/24 History donepezil 5 mg tablet 5 mg PO HS 07/31/23 09/30/24 History escitalopram oxalate 20 mg tablet 20 mg PO HS 07/31/23 09/30/24 History memantine 10 mg tablet 10 mg PO BID 07/31/23 09/30/24 History pantoprazole 40 mg tablet,delayed 40 mg PO BID 10/17/23 09/30/24 History release bupropion HCl 150 mg 24 hr tablet, 150 mg PO DAILY 09/28/24 09/30/24 History extended release calcium carb-ergocalciferol (vit 1 tab PO DAILY 09/30/24 09/30/24 History D2) 600 mg calcium-200 unit tablet docusate sodium 100 mg capsule 100 mg PO DAILY 09/30/24 09/30/24 History (Stool Softener) iron 18 mg tablet 18 mg PO DAILY 09/30/24 09/30/24 History methylcellulose (laxative) 500 mg 500 mg PO DAILY 09/30/24 09/30/24 History tablet (Citrucel) [id number] 8 mg-folic 400 1 tab PO DAILY 09/30/24 09/30/24 History mcg-K 50 mcg-lutein 300 mcg tablet (Centrum Silver Women) potassium 99 mg tablet 99 mg PO DAILY 09/30/24 09/30/24 History simethicone 125 mg capsule (Gas-X 125 mg PO DAILY PRN Gastric Reflux 09/30/24 09/30/24 History Extra Strength) vitamin B complex 1 ea PO DAILY 09/30/24 09/30/24 History cefdinir 300 mg capsule 300 mg PO BID #4 caps 10/02/24 Rx furosemide 20 mg tablet (Lasix) 20 mg PO DAILY #30 tabs 10/02/24 Rx New Prescriptions to Start Prescriptions: cefRatna Velazquez furosemide [Lasix] Ratna Wilkins Allergies Allergy/AdvReac Type Severity Reaction Status Date / Time morphine (MORPHINE) Allergy Unknown HIVES/FEVER Verified 01/16/24 15:14 Penicillins (PENICILLINS) Allergy Unknown I-RASH Verified 01/16/24 15:14 Sulfa (Sulfonamide Allergy Unknown I-RASH Verified 01/16/24 15:14 Antibiotics) (SULFA (SULFONAMIDE ANTIBIOTICS)) Discharge Plan Disposition Patient Disposition: Xfer SNF Condition: Fair Discharge Order Discharge Orders: Discharge Order (Routine); Ordered 10/02/24 Ordered By: Ratna Wilkins Follow up Plan Follow up with: Devang Ryan PA [Physician Statistician Applied, Cardiology] - Enter time for follow up Magdalena Brian DPM [Staff Physician, Podiatry] - 2 weeks Prescriptions/Medication Reconciliation: New cefdinir 300 mg capsule 300 mg PO BID Qty: 4 0RF furosemide [Lasix] 20 mg tablet 20 mg PO DAILY Qty: 30 0RF Continued donepezil 5 mg tablet 5 mg PO HS Patient Comments: TAKE 1 TABLET DAILY AT BEDTIME; call to increase to 10mg when due for refill escitalopram oxalate 20 mg tablet 20 mg PO HS Patient Comments: TAKE ONE TABLET BY MOUTH DAILY memantine 10 mg tablet 10 mg PO BID Patient Comments: TAKE 1 Tablet by mouth twice daily pantoprazole 40 mg tablet,delayed release (DR/EC) 40 mg PO BID Patient Comments: TAKE ONE TABLET BY MOUTH TWICE DAILY simvastatin 20 mg tablet 20 mg PO HS cholecalciferol (vitamin D3) 125 mcg (5,000 unit) capsule 50 mcg PO DAILY ascorbic acid (vitamin C) 500 mg tablet extended release 500 mg PO DAILY bupropion HCl 150 mg tablet extended release 24 hr 150 mg PO DAILY Patient Comments: take 1 Tablet by mouth daily Centrum Silver Women 8 mg iron-400 mcg-50 mcg Tablet 1 tab PO DAILY vitamin B complex Elixir 1 ea PO DAILY calcium carbonate-vitamin D2 600 mg calcium- 200 unit Tablet 1 tab PO DAILY Citrucel 500 mg Tablet 500 mg PO DAILY docusate sodium [Stool Softener] 100 mg Capsule 100 mg PO DAILY simethicone [Gas-X Extra Strength] 125 mg Capsule 125 mg PO DAILY PRN (Reason: Gastric Reflux) iron 18 mg Tablet 18 mg PO DAILY potassium 99 mg Tablet 99 mg PO DAILY Discontinued lisinopril 20 mg tablet 20 mg PO HS losartan 50 mg Tablet 50 mg PO DAILY Problem Reconciliation Problems Reviewed?: Yes Patient Discharge Instructions ACTIVITY: Continue current activity DIET: continue same diet Patient Instructions: DI for Urinary Tract Infection (UTI), How to Prevent Falls, DI for Failure to Thrive, DI for Altered Mental Status, Stop Light Infection Print Language: Afghan Providers Primary Care Provider: Bianca Gonzalez Provider: Sam Oates Attending Provider: Sam Oates
--- NOTE | 2024-10-02 15:16 | PC.NURSE ---
report called to Nancy at [facility]
== END 2024-10-02 16:01 | DRG 673 ==
LOC: ER 21:32 → 2ND 09-28 00:11
PROVIDERS: Internal Medicine; Nurse Practitioner; Podiatrist; Admitting Provider Internal Medicine Adolescent Medicine; Emergency Provider Student in an Organized Health Care Education/Training Program; PCP Family Medicine; Visit Provider Internal Medicine Adolescent Medicine
DX: N39.0 Urinary tract infection, site not specified (principal); G92.9 Unspecified toxic encephalopathy; I50.33 Acute on chronic diastolic (congestive) heart failure; L89.893 Pressure ulcer of other site, stage 3; M62.82 Rhabdomyolysis; L03.116 Cellulitis of left lower limb; R53.81 Other malaise; R62.7 Adult failure to thrive; F03.90 Unspecified dementia, unspecified severity, without behavioral disturbance, psychotic disturbance, mood disturbance, and anxiety; L84 Corns and callosities; E66.9 Obesity, unspecified; B96.20 Unspecified Escherichia coli [E. coli] as the cause of diseases classified elsewhere; F32.A Depression, unspecified; M20.42 Other hammer toe(s) (acquired), left foot; M77.52 Other enthesopathy of left foot and ankle; M20.41 Other hammer toe(s) (acquired), right foot; L60.3 Nail dystrophy; M19.071 Primary osteoarthritis, right ankle and foot; M19.072 Primary osteoarthritis, left ankle and foot; R55 Syncope and collapse; I95.9 Hypotension, unspecified; M25.551 Pain in right hip; E87.6 Hypokalemia; Z91.81 History of falling; Z68.36 Body mass index [BMI] 36.0-36.9, adult; Z79.899 Other long term (current) drug therapy; Z88.6 Allergy status to analgesic agent; Z88.0 Allergy status to penicillin; Z88.2 Allergy status to sulfonamides
CPT/HCPCS: 36415; 70450; 70496; 70498; 71045; 73502; 73630; 74018; 80048; 80053; 80061; 80307; 80320; 80329; 81001; 82550; 82803; 82962; 83735; 83880; 84100; 84484; 85025; 85610; 85651; 85730; 86140; 87040; 87070; 87077; 87086; 87088; 87186; 87205; 93005; 93306; 97110; 97163; 97166; 97530; J0696; J1644; J1938; J2405; Q9967